=== PATIENT | female | born 1985 | race African-American/Black ===

== ENCOUNTER 2016-08-03 19:22 | Emergency (ER) | payer MEDICAID ==
--- NOTE | 2016-08-03 19:37 | ER Document Report ---
ED Medical Screen (RME) - General Chief Complaint: Headache >24 hrs old Stated Complaint: HEADACHE Notes: Patient complains of intermittent headache for 4 days. Patient denies fever, denies congestion, nausea or vomiting. Headache is located to left forehead. Pain level 4 out of 5. I have greeted and performed a rapid initial assessment of this patient. A comprehensive ED assessment and evaluation of the patient, analysis of test results and completion of the medical decision making process will be conducted by additional ED providers. TRAVEL OUTSIDE OF THE [place] IN LAST 30 DAYS: No - Related Data Allergies/Adverse Reactions: hydromorphone HCl [From Dilaudid] Allergy (Severe, Verified 05/26/13 07:31) Anaphylaxis Past Medical History - Social History Chew tobacco use (# tins/day): No Frequency of alcohol use: None Drug Abuse: None Endocrine Medical History: Reports: Hx Diabetes Mellitus Type 1 Renal/ Medical History: Denies: Hx Peritoneal Dialysis Past Surgical History: Reports: Hx Section - x2, Hx Tubal Ligation - Immunizations Immunizations up to date: No Hx Diphtheria, Pertussis, Tetanus Vaccination: No Physical Exam - Vital signs Vitals: Temp Pulse Resp BP Pulse Ox 98.6 F 106 H 16 124/73 100 08/03/16 19:32 08/03/16 19:32 08/03/16 19:32 08/03/16 19:32 08/03/16 19:32 Course - Vital Signs Vital signs: Temp Pulse Resp BP Pulse Ox 98.6 F 106 H 16 124/73 100 08/03/16 19:32 08/03/16 19:32 08/03/16 19:32 08/03/16 19:32 08/03/16 19:32
--- NOTE | 2016-08-03 22:34 | ER Document Report ---
ED Headache - General Time seen by provider: 22:35 Mode of Arrival: Ambulatory Information source: Patient TRAVEL OUTSIDE OF THE [place] IN LAST 30 DAYS: No - HPI Patient complains to provider of: Headache, Facial pain Onset: Other - see HPI note Timing: Better Quality of pain: Sharp, Throbbing Pain Level: 4 Context: denies: Head injury Preceding symptoms: Visual disturbance Associated symptoms: Double/blurred vision. denies: Fever, Nausea/vomiting Exacerbated by: Light - General Chief Complaint: Headache >24 hrs old Stated Complaint: HEADACHE Notes: Patient is a 31 year old female presenting to the emergency department for headache. Patient has had this headache for the past 4 days and it is waxing and waning every 2-3 hours. Patient's headache is located in the left side of her forehead. Patient states she gets headaches but they are usually relieved with Goody's powder. Patient states she has been using Goody's powder and has had no relief for her pain. Patient states her pain is a 4/5. Patient denies any trauma or injury to her head, dental pain, congestion, fever, nausea, or vomiting. Patient states that she is having some blurry vision on the left side because of the headache. Patient describes her pain as sharp, constant, and throbbing. Patient's headache is exacerbated with light. Patient states that she is a type I diabetic and takes lantis. Patient is allergic to hydromorphone HCl. (TESSA RO) - Related Data Allergies/Adverse Reactions: hydromorphone HCl [From Dilaudid] Allergy (Severe, Verified 05/26/13 07:31) Anaphylaxis Past Medical History - General Information source: Patient - Social History Smoking Status: Never Smoker Cigarette use (# per day): No Chew tobacco use (# tins/day): No Frequency of alcohol use: None Drug Abuse: None Family History: DM, Hypertension, Other - asthma Patient has suicidal ideation: No Patient has homicidal ideation: No Endocrine Medical History: Reports: Hx Diabetes Mellitus Type 1 Past Surgical History: Reports: Hx Section - x2, Hx Tubal Ligation - Immunizations Immunizations up to date: No Hx Diphtheria, Pertussis, Tetanus Vaccination: No Review of Systems - Review of Systems Constitutional: No symptoms reported. denies: Fever EENT: No symptoms reported. denies: Nose congestion Cardiovascular: No symptoms reported Respiratory: No symptoms reported Gastrointestinal: No symptoms reported. denies: Nausea, Vomiting Genitourinary: No symptoms reported Female Genitourinary: No symptoms reported Musculoskeletal: No symptoms reported Skin: No symptoms reported Hematologic/Lymphatic: No symptoms reported Neurological/Psychological: See HPI, Headaches -: Yes All other systems reviewed and negative Physical Exam - Vital signs Interpretation: Tachycardic - Vital signs Vitals: Temp Pulse Resp BP Pulse Ox 98.6 F 106 H 16 124/73 100 08/03/16 19:32 08/03/16 19:32 08/03/16 19:32 08/03/16 19:32 08/03/16 19:32 - Notes Notes: GENERAL: Well-appearing, well-nourished and in no acute distress. HEAD: Atraumatic, normocephalic. Tenderness with palpitation over the temporal and frontal head. No temporal artery tenderness. EYES: Pupils equal round and reactive to light, extraocular movements intact, sclera anicteric, no conjunctival injection or discharge. ENT: Nares patent, oropharynx clear without exudates. Moist mucous membranes. Normal TMs. NECK: Normal range of motion, supple, no carotid bruits. LUNGS: Breath sounds clear to auscultation bilaterally and equal. No wheezes rales or rhonchi. HEART: Normal S1S2. Regular rate and rhythm without murmurs. Equal peripheral pulses. ABDOMEN: Soft, non-tender. No appreciable mass. EXTREMITIES: Normal range of motion. No calf tenderness. Negative Homans. No edema. NEUROLOGICAL: GCS 15, Cranial nerves II-XII intact. Normal visual pitts. Normal speech without aphasia. No Pronator Drift. 5/5 RUE strength, 5/5 RLE strength, 5/5 LUE strength, 5/5 LLE strength. No cerebellar abnormalities including normal finger-nose testing. PSYCH: Normal mood, normal affect. SKIN: Warm, Dry, no cyanosis, Cap refill < 2 sec. (TESSA RO) Course - Re-evaluation Re-evalutation: 08/03/16 22:44 The patient presents with headache without signs of [employer] bleed, stroke, infection , or other serious etiology. The patient is neurologically intact. This is consistent with prior headaches she has had, usually though it gets better with BC powders. I have instructed her to limit BC powders. Given the extremely low risk of these diagnoses further testing and evaluation for these possibilities does not appear to be indicated at this time, as agreed as well with the patient. The patient has been instructed to return if the symptoms worsen or change in any way (TYLER VILLANUEVA) - Vital Signs Vital signs: Temp Pulse Resp BP Pulse Ox 98.6 F 106 H 16 124/73 100 08/03/16 19:32 08/03/16 19:32 08/03/16 19:32 08/03/16 19:32 08/03/16 19:32 Discharge - Discharge Clinical Impression: Headache Qualifiers: Headache type: unspecified Condition: Good Disposition: HOME, SELF-CARE Instructions: Headache ([facility]) Prescriptions: Promethazine HCl [Phenergan 25 mg Tablet] 25 mg PO Q4HP PRN #12 tablet PRN Reason: For Nausea/Vomiting Butalb/Acetaminophen/Caffeine [Fioricet (50-325-40 mg) Tablet] 1 - 2 tab PO Q4H #20 tab Referrals: [facility] [Provider Group] - Follow up in 3-5 days Scribe Documentation - Scribe Written by Jorje:: Tessa Ro 22:50 acting as scribe for :: Anastasia
[2016-08-03] MEDS ORDERED: ONDANSETRON 4 MG TAB.RAPDIS PO ONE (22:41)
[2016-08-03] MEDS ORDERED: HYDROCODONE/ACETAMINOPHEN 5-325 MG TABLET PO ONE (22:41)
[2016-08-03 23:22] VITALS: BP 125/80
== END 2016-08-03 23:20 | disposition home or self-care (01) ==
LOC: ER 19:22
DX: R51 Headache (principal); E10.9 Type 1 diabetes mellitus without complications; Z79.4 Long term (current) use of insulin
CPT/HCPCS: 99283; S0119

== ENCOUNTER 2016-09-26 15:16 | Emergency (ER) | payer MEDICAID ==
[2016-09-26] MEDS ORDERED: HYDROCODONE/ACETAMINOPHEN 5-325 MG TABLET ONE (17:22)
--- NOTE | 2016-10-12 09:15 | ER Document Report ---
Course - Re-evaluation Re-evalutation: 10/12/16 09:14 late entry: posterior ankle splint to right foot applied per pct, splint with good alignment , pt NVI
== END 2016-09-26 19:40 | disposition home or self-care (01) ==
LOC: ER 15:16
PROC: 2W3SX1Z Immobilization of Right Foot using Splint (ICD-10-PCS; principal; 2016-09-26)
DX: S92.405A Nondisplaced unspecified fracture of left great toe, initial encounter for closed fracture (principal); Y04.0XXA Assault by unarmed brawl or fight, initial encounter
CPT/HCPCS: 99283

== ENCOUNTER 2017-07-31 07:44 | Emergency (ER) | payer MEDICAID ==
--- NOTE | 2017-07-31 08:15 | ER Document Report ---
ED Extremity Problem, Lower - General Chief Complaint: Toe Injury Stated Complaint: TOE PAIN Time Seen by Provider: 07/31/17 08:08 Notes: Patient is a 32-year-old female, past medical history type I diabetic, presents with swelling of her left big toe and greenish discharge from the toe with red streaking after she received a pedicure a few days ago. Her blood sugar has been in the 500s in the ER today, but she said that they were running in the 100 's this week. She took her insulin last night as she normally does. Not on any sliding scale insulin. She denies nausea, vomiting, abdominal pain, fevers, urinary symptoms, shortness of breath or cough. TRAVEL OUTSIDE OF THE [place] IN LAST 30 DAYS: No - Related Data Allergies/Adverse Reactions: hydromorphone HCl [From Dilaudid] Allergy (Severe, Verified 05/26/13 07:31) Anaphylaxis Past Medical History - General Information source: Patient - Social History Smoking Status: Never Smoker Chew tobacco use (# tins/day): No Frequency of alcohol use: None Family History: DM, Hypertension, Other - asthma Patient has suicidal ideation: No Patient has homicidal ideation: No Endocrine Medical History: Reports: Hx Diabetes Mellitus Type 1 Renal/ Medical History: Denies: Hx Peritoneal Dialysis Past Surgical History: Reports: Hx Section - x2, Hx Tubal Ligation - Immunizations Immunizations up to date: No Hx Diphtheria, Pertussis, Tetanus Vaccination: No Review of Systems - Review of Systems Notes: REVIEW OF SYSTEMS: CONSTITUTIONAL: -fevers, -chills EENT: -eye pain, -difficulty swallowing, -nasal congestion CARDIOVASCULAR: -chest pain, -syncope. RESPIRATORY: -cough, -SOB GASTROINTESTINAL: -abdominal pain, -nausea, -vomiting, -diarrhea GENITOURINARY: -dysuria, -hematuria MUSCULOSKELETAL: +left big toe redness and swelling, -back pain, -neck pain HEMATOLOGIC: -easy bruising or bleeding. LYMPHATIC: -swollen, enlarged glands. NEUROLOGICAL: -altered mental status or loss of consciousness, -headache, - neurologic symptoms PSYCHIATRIC: -anxiety, -depression. ALL OTHER SYSTEMS REVIEWED AND NEGATIVE. Physical Exam - Vital signs Vitals: Temp Pulse Resp BP Pulse Ox 98.5 F 103 H 16 125/74 100 07/31/17 07:49 07/31/17 07:49 07/31/17 07:49 07/31/17 07:49 07/31/17 07:49 - Notes Notes: PHYSICAL EXAMINATION: GENERAL: Well-appearing, well-nourished and in no acute distress. HEAD: Atraumatic, normocephalic. EYES: Pupils equal round and reactive to light, extraocular movements intact, sclera anicteric, conjunctiva are normal. ENT: nares patent, oropharynx clear without exudates. Moist mucous membranes. NECK: Normal range of motion, supple without lymphadenopathy LUNGS: Breath sounds clear to auscultation bilaterally and equal. No wheezes rales or rhonchi. HEART: Regular rate and rhythm without murmurs ABDOMEN: Soft, nontender, normoactive bowel sounds. No guarding, no rebound. No masses appreciated. EXTREMITIES: Swelling of left big toe with blister and yellow drainage from the nail. Fluctuant swelling next to nailbed. Erythema from first big toe to mid foot. Normal range of motion, no pitting or edema. No cyanosis. NEUROLOGICAL: Cranial nerves grossly intact. Normal speech, normal gait. Normal sensory and motor exams. PSYCH: Normal mood, normal affect. Course - Re-evaluation Re-evalutation: Patient appears well. She has a paronychia that was drained and now mild cellulitis of her left first toe to mid foot. This was demarcated with a skin marker. Patient is not in DKA, but she does have hyperglycemia. Due to her uncontrolled diabetes with an A1c over 14, offered patient admission for IV antibiotics and further treatment of her hyperglycemia. However, the patient says she would like to try a trial of oral antibiotics and will call her primary care physician in [place] for an appointment this week to discuss her diabetes management. Patient told to come back immediately to the emergency room if she begins to have any worsening redness, fevers, difficulty walking or signs of DKA. She understands. - Vital Signs Vital signs: Temp Pulse Resp BP Pulse Ox 98.5 F 103 H 16 125/74 100 07/31/17 07:49 07/31/17 07:49 07/31/17 07:49 07/31/17 07:49 07/31/17 07:49 - Laboratory Result Diagrams: 07/31/17 08:40 07/31/17 08:40 Laboratory results interpreted by me: 07/31/17 07/31/17 07/31/17 08:40 08:40 08:40 WBC 20.1 H Hgb 10.1 L Hct 33.2 L MCV 66 L MCH 20.1 L MCHC 30.6 L RDW 17.9 H Plt Count 452 H Seg Neuts % (Manual) 86 H Lymphocytes % (Manual) 10 L Abs Neuts (Manual) 17.3 H Sodium 132.6 L Chloride 95 L Creatinine 0.48 L Glucose 561 H* Hemoglobin A1c % > 14.0 H - Diagnostic Test Radiology reviewed: Image reviewed, Reports reviewed Radiology results interpreted by me: Left foot x-ray: NAD Procedures - Incision and Drainage Left Great toe Time completed: Type: Simple Blade size: 11 I&D procedure: Betadine prep applied Incision Method: Incision made by scalpel Amount/type of drainage: 5 mL purulent drainage Discharge - Discharge Clinical Impression: Paronychia, Cellulitis of toe of left foot, Hyperglycemia Uncontrolled diabetes mellitus Qualifiers: Diabetes mellitus type: type 1 Diabetes mellitus complication status: with skin complications Diabetes mellitus complication detail: with other skin complication Qualified Code(s): E10.628 - Type 1 diabetes mellitus with other skin complications Condition: Stable Disposition: HOME, SELF-CARE Additional Instructions: If you notice worsening redness outside of the skin markings, return immediately to the emergency room. Take the full course of antibiotics and use yogurt or probiotics to help with any diarrhea. You must follow-up with your primary care physician to discuss diabetes management due to elevated blood sugar and A1c today. You are not in DKA today. Return to the ER if you have any worsening symptoms or any other concerns. CELLULITIS: You have an infection of your skin and underlying soft tissues called cellulitis. This is due to bacteria, which can enter through any break in the skin, or even through an irritated hair follicle. Untreated, cellulitis will usually worsen. Antibiotics are required. Usually, warm packs or warm soaks, and elevation of the infected area are recommended. You should start getting better within 24 to 36 hours. Most infections respond quickly to the right medication. Follow-up care is important, however, to check for abscess (boil) formation, unsuspected foreign body, or resistant infection. If you develop fever, chills, or if the area of infection is becoming rapidly more swollen or painful, call the doctor at once. ANTIBIOTIC THERAPY: You have been given an antibiotic prescription. It's important that you take all the medication, unless instructed otherwise by your physician. Failure to complete the entire course can result in relapse of your condition. Common side effects of antibiotics include nausea, intestinal cramping, or diarrhea. Women may develop vaginal yeast infections, and babies can get yeast (thrush) in the mouth following the use of antibiotics. Contact your physician if you develop significant side effects from this medication. Allergy to this antibiotic can result in hives, wheezing, faintness, or itching. If symptoms of allergy occur, stop the medication and call the doctor. CLINDAMYCIN: You have been given a prescription for the antibiotic clindamycin. It is often prescribed for infections in the mouth, such as dental infections or abscesses, and for skin infections due to MRSA. It's important that you take all the medication, unless instructed otherwise by your physician. Failure to complete the entire course can result in relapse of your condition. Common side effects of antibiotics include nausea, intestinal cramping, or diarrhea. Women may develop vaginal yeast infections, and babies can get yeast (thrush) in the mouth following the use of antibiotics. Contact your physician if you develop significant side effects from this medication. Allergy to this antibiotic can result in hives, wheezing, faintness, or itching. If symptoms of allergy occur, stop the medication and call the doctor. FOLLOW-UP CARE: If you have been referred to a physician for follow-up care, call the physician s office for an appointment as you were instructed or within the next two days. If you experience worsening or a significant change in your symptoms, notify the physician immediately or return to the Emergency Department at any time for re-evaluation. HYPERGLYCEMIA (HIGH BLOOD SUGAR): You have an abnormally high blood sugar. Not all high blood sugar requires long-term treatment. High blood sugar can be due to medications, , or the stress of illness. (These cases are "borderline diabetes.") If the doctor feels your high blood sugar might resolve with time, you may not require treatment now. It's very important that you follow through, to see if the blood sugar returns to normal levels. Uncontrolled high blood sugar leads to early heart disease, strokes, nerve damage, eye damage, and kidney damage. Call the physician if there is faintness, excess sleepiness, or very rapid breathing. DIABETES: You have an abnormally high blood sugar, suspicious for diabetes. Not all high blood sugar requires long-term treatment. High blood sugar can be due to medications, , or the stress of illness. (These cases are "borderline diabetes.") If the doctor feels your high blood sugar might get better with time, you may not require treatment now. It's very important that you follow through. Uncontrolled high blood sugar leads to early heart disease, strokes, nerve damage, eye damage, and kidney damage. All diabetics should follow a diet designed to control the blood sugar. Overweight diabetics should exercise regularly and lose weight. If this is not sufficient to control the blood sugar, pills or insulin shots are necessary. Younger people who develop diabetes almost always require insulin daily. Home testing of blood sugars or urine sugar is required. Diabetic teaching is available to help you figure insulin doses and monitor the blood sugar. Call the physician if there is faintness, excess sleepiness, or very rapid breathing. If hypoglycemia (LOW blood sugar) develops, symptoms are shakiness, weakness, sweating, and confusion. In this case, you should eat or drink something with sugar at once. INSULIN: Insulin is a natural hormone that lowers blood sugar. Normal blood sugar prevents complications of diabetes. For most diabetics, insulin is the best way to treat the illness. Be sure you know how to measure the insulin correctly. Insulin is measured in "units." There are three types of insulin: N (NPH or long acting), R (regular or short acting), and L (Lente or very long acting). Be sure you are using the right amount of each type. Insulin must be injected into the fat. You can use the abdomen, upper arms , and thighs. Select a different injection site every time. Wipe the site with alcohol before injecting. When first starting insulin, some adjusting of the insulin dose is necessary. Keep a record of each insulin dose and time of injection, and of the blood sugar and the time you test it. Sometimes insulin can make the blood sugar too low. If you become dizzy, sweaty, shaky, or confused, you may be having a hypoglycemic episode. Immediately use juice or some other sweet food. Call the doctor if the symptoms don't go away. FOLLOW-UP CARE: If you have been referred to a physician for follow-up care, call the physician s office for an appointment as you were instructed or within the next two days. If you experience worsening or a significant change in your symptoms, notify the physician immediately or return to the Emergency Department at any time for re-evaluation. Paronychia You have an infection between the nail and the surrounding skin, called a paronychia. The germs infect the area after a minor skin injury, such as a hangnail. This infection is treated by releasing the pus. This is usually done by the skin from the nail. If the infection has spread underneath the nail, partial removal of the nail may be necessary. Hot-soak the area three or four times daily. Antibiotics are often given, but are not always necessary. Healing takes about a week. If pain or swelling becomes severe or if you develop fever or chills, call the doctor or return for re-examination. Prescriptions: Clindamycin HCl 300 mg PO Q8H 7 Days capsule Referrals: SHANNON TEJEDA MD [Primary Care Provider] - Follow up as needed
[2017-07-31] MEDS ORDERED: CLINDAMYCIN 600 MG/D5W RTU 600 MG/50 ML RTUPB IV ONE (08:23)
[2017-07-31] MEDS ORDERED: NORMAL SALINE 1000 ML 1,000 ML IV PRN (08:23)
[2017-07-31 09:05] LABS: HEMATOCRIT 33.2 % (36.0-47.0); HEMOGLOBIN 10.1 g/dL (12.0-15.5); MEAN CORPUSCULAR HEMOGLOBIN 20.1 pg (27.0-33.4); MEAN CORPUSCULAR HGB CONC 30.6 g/dL (32.0-36.0); MEAN CORPUSCULAR VOLUME 66 fl (80-97); PLATELET COUNT 452 10^3/uL (150-450); RED BLOOD COUNT 5.03 10^6/uL (3.72-5.28); RED CELL DISTRIBUTION WIDTH 17.9 % (11.5-14.0); WHITE BLOOD COUNT 20.1 10^3/uL (4.0-10.5)
--- NOTE | 2017-07-31 09:06 | RADIOLOGY REPORT (SQ) ---
EXAM DESCRIPTION: TOE LEFT COMPLETED DATE/TIME: 07/31/2017 8:51 am REASON FOR STUDY: left first toe swelling COMPARISON: None. NUMBER OF VIEWS: Three views. TECHNIQUE: AP, lateral, and oblique images acquired of the left GREAT TOE LIMITATIONS: None. FINDINGS: MINERALIZATION: Normal. BONES: No acute fracture or dislocation. No worrisome bone lesions. JOINTS: No effusions. SOFT TISSUES: No soft tissue swelling. No foreign body. OTHER: No other significant finding. IMPRESSION: NEGATIVE STUDY OF THE LEFT TOE. NO RADIOGRAPHIC EVIDENCE OF ACUTE INJURY. COMMENT: SITE OF TRAUMA/COMPLAINT MARKED/STAMP COMPLETED: NO TECHNICAL DOCUMENTATION: JOB ID: [id number] [employer]- All Rights Reserved Reading location - IP/workstation name: [email or web address]
[2017-07-31 09:16] LABS: ANION GAP 16 (5-19); BLOOD UREA NITROGEN 10 mg/dL (7-20); CALCIUM 9.8 mg/dL (8.4-10.2); CARBON DIOXIDE 22 mmol/L (22-30); CHLORIDE 95 mmol/L (98-107); POTASSIUM 4.4 mmol/L (3.6-5.0); SODIUM 132.6 mmol/L (137-145)
[2017-07-31 09:25] LABS: GLUCOSE 561 mg/dL (75-110)
[2017-07-31 09:45] LABS: ABSOLUTE MONOCYTES # (MANUAL) 0.6 10^3/uL (0.1-1.4); ABSOLUTE NEUTROPHILS# (MANUAL) 17.3 10^3/uL (1.7-8.2); ANISOCYTOSIS 2+; BASOPHILS % (MANUAL) 1 % (0-2); EOSINOPHILS % (MANUAL) 0 % (0-6); LYMPHOCYTES % (MANUAL) 10 % (13-45); MONOCYTES % (MANUAL) 3 % (3-13); PLATELET COMMENT ADEQUATE; POLYCHROMASIA SLIGHT; SEGMENTED NEUTROPHILS % (MAN) 86 % (42-78); TOTAL CELLS COUNTED 100; TOXIC GRANULATION SLIGHT; TOXIC VACUOLATION PRESENT
[2017-07-31 09:46] LABS: HYPOCHROMASIA SLIGHT
[2017-07-31 10:55] VITALS: BP 109/55
== END 2017-07-31 11:06 | disposition home or self-care (01) ==
LOC: ER 07:44
DX: L03.032 Cellulitis of left toe (principal); L03.116 Cellulitis of left lower limb; E10.65 Type 1 diabetes mellitus with hyperglycemia; Z88.5 Allergy status to narcotic agent
CPT/HCPCS: 99284; 96365; 36415; 87040; 82962; 83605; 85025; 80048; 83036; 73660; 10060; S0077; J7030

== ENCOUNTER 2017-08-01 20:23 | Inpatient (IN) | payer MEDICAID ==
[2017-08-01] MEDS ORDERED: VANCOMYCIN HCL INJ 1000 MG VIAL IV ONE (21:21)
[2017-08-01] MEDS ORDERED: PIPERACILLIN/TAZOBACTAM 3.375 GM VIAL IV ONE (21:21)
--- NOTE | 2017-08-01 21:22 | ER Document Report ---
ED Medical Screen (RME) - General Chief Complaint: Wound Infection Stated Complaint: FOOT PAIN Time Seen by Provider: 08/01/17 21:20 Mode of Arrival: Ambulatory Information source: Patient Notes: 32-year-old female who was seen here yesterday given IV antibiotics and oral antibiotics for a toe infection presents with worsening symptoms I have greeted and performed a rapid initial assessment of this patient. A comprehensive ED assessment and evaluation of the patient, analysis of test results and completion of the medical decision making process will be conducted by additional ED providers. PHYSICAL EXAMINATION: GENERAL: Well-appearing, well-nourished and in no acute distress. HEAD: Atraumatic, normocephalic. EYES: Pupils equal round extraocular movements intact, conjunctiva are normal. ENT: Nares patent NECK: Normal range of motion LUNGS: No respiratory distress Musculoskeletal: Normal range of motion NEUROLOGICAL: Normal speech, normal gait. PSYCH: Normal mood, normal affect. SKIN: Large toe erythematous pustular with drainage streaking to the mid mcintyre TRAVEL OUTSIDE OF THE [place] IN LAST 30 DAYS: No - Related Data Allergies/Adverse Reactions: hydromorphone HCl [From Dilaudid] Allergy (Severe, Verified 08/01/17 20:26) Anaphylaxis Past Medical History Endocrine Medical History: Reports: Hx Diabetes Mellitus Type 1 Renal/ Medical History: Denies: Hx Peritoneal Dialysis Past Surgical History: Reports: Hx Section - x2, Hx Tubal Ligation - Immunizations Immunizations up to date: No Hx Diphtheria, Pertussis, Tetanus Vaccination: No
[2017-08-01 22:24] LABS: ABSOLUTE BASOPHILS # (AUTO) 0.1 10^3/uL (0.0-0.2); ABSOLUTE EOSINOPHILS # (AUTO) 0.5 10^3/uL (0.0-0.6); ABSOLUTE LYMPHOCYTES (AUTO) 2.5 10^3/uL (0.5-4.7); ABSOLUTE MONOCYTES (AUTO) 0.6 10^3/uL (0.1-1.4); ABSOLUTE NEUT (AUTO) 6.4 10^3/uL (1.7-8.2); BASOPHILS % (AUTO) 0.7 % (0-2); EOSINOPHILS % (AUTO) 5.3 % (0-6); HEMATOCRIT 31.9 % (36.0-47.0); HEMOGLOBIN 9.9 g/dL (12.0-15.5); LYMPHOCYTES % (AUTO) 24.8 % (13-45); MEAN CORPUSCULAR HEMOGLOBIN 20.2 pg (27.0-33.4); MEAN CORPUSCULAR VOLUME 65 fl (80-97); MONOCYTES % (AUTO) 6.2 % (3-13); PLATELET COUNT 527 10^3/uL (150-450); RED BLOOD COUNT 4.92 10^6/uL (3.72-5.28); TOTAL CELLS COUNTED % (AUTO) 100 %; WHITE BLOOD COUNT 10.2 10^3/uL (4.0-10.5)
[2017-08-01 22:43] LABS: ALANINE AMINOTRANSFERASE 20 U/L (9-52); ALBUMIN 4.3 g/dL (3.5-5.0); ALKALINE PHOSPHATASE 110 U/L (38-126); ANION GAP 12 (5-19); ASPARTATE AMINO TRANSFERASE 26 U/L (14-36); BILIRUBIN,DIRECT 0.3 mg/dL (0.0-0.4); BILIRUBIN,TOTAL 0.3 mg/dL (0.2-1.3); BLOOD UREA NITROGEN 6 mg/dL (7-20); CALCIUM 9.7 mg/dL (8.4-10.2); CARBON DIOXIDE 27 mmol/L (22-30); CHLORIDE 98 mmol/L (98-107); GLUCOSE 387 mg/dL (75-110); POTASSIUM 4.1 mmol/L (3.6-5.0); SODIUM 136.8 mmol/L (137-145); TOTAL PROTEIN 8.7 g/dL (6.3-8.2)
[2017-08-01 22:56] LABS: INTERNATIONAL RATION (INR) 0.86; PROTHROMBIN TIME 12.4 SEC (11.4-15.4)
[2017-08-01] MEDS ORDERED: MORPHINE SULFATE 10 MG/ML INJ IV ONE (23:00)
[2017-08-01] MEDS ORDERED: ONDANSETRON HCL INJ/PF 4 MG/2 ML SDV IV ONE (23:00)
--- NOTE | 2017-08-01 23:03 | ER Document Report ---
ED Extremity Problem, Lower - General Chief Complaint: Wound Infection Stated Complaint: FOOT PAIN Time Seen by Provider: 08/01/17 21:20 Mode of Arrival: Ambulatory Notes: Patient is a 32-year-old female, type I diabetic, who comes emergency department for chief complaint of worsening symptoms of infection on the left foot, she was seen yesterday, diagnosed with a paronychia which was drained, she was placed on clindamycin, she had declined admission to the hospital at that time. She states however today it has dramatically worsened, now she has swelling of her toe, foot, and ankle along with increased pain and redness. She denies fever or chills, nausea or vomiting. Her blood sugars have been elevated since this began. TRAVEL OUTSIDE OF THE [place] IN LAST 30 DAYS: No - Related Data Allergies/Adverse Reactions: hydromorphone HCl [From Dilaudid] Allergy (Severe, Verified 08/01/17 20:26) Anaphylaxis Past Medical History - General Information source: Patient - Social History Smoking Status: Never Smoker Chew tobacco use (# tins/day): No Frequency of alcohol use: Rare Drug Abuse: None Family History: DM, Hypertension, Other - asthma Patient has suicidal ideation: No Patient has homicidal ideation: No Endocrine Medical History: Reports: Hx Diabetes Mellitus Type 1 Renal/ Medical History: Denies: Hx Peritoneal Dialysis Past Surgical History: Reports: Hx Section - x2, Hx Tubal Ligation - Immunizations Immunizations up to date: No Hx Diphtheria, Pertussis, Tetanus Vaccination: No Review of Systems - Review of Systems Constitutional: No symptoms reported EENT: No symptoms reported Cardiovascular: No symptoms reported Respiratory: No symptoms reported Gastrointestinal: No symptoms reported Genitourinary: No symptoms reported Female Genitourinary: No symptoms reported Musculoskeletal: See HPI Skin: See HPI Hematologic/Lymphatic: No symptoms reported Neurological/Psychological: No symptoms reported Physical Exam - Vital signs Vitals: Resp Pulse Ox 13 100 08/01/17 23:10 08/01/17 23:10 - General General appearance: Other - Patient holding her left foot over the side of the bed and appears to be in some pain, otherwise she does not appear to be in any distress - HEENT Head: Normocephalic, Atraumatic Eyes: Normal Conjunctiva: Normal Extraocular movements intact: Yes Eyelashes: Normal Pupils: PERRL Nasal: Normal Mouth/Lips: Normal Mucous membranes: Normal Pharynx: Normal Neck: Normal - Respiratory Respiratory status: No respiratory distress. No: Labored Breath sounds: Normal. No: Decreased air movement - Cardiovascular Rhythm: Regular. No: Tachycardia Heart sounds: Normal auscultation, S1 appreciated, S2 appreciated - Abdominal Inspection: Normal Tenderness: Nontender. No: Tender, Guarding - Back Back: Normal, Nontender. No: Tender - Extremities General upper extremity: Normal inspection, Nontender, Normal strength, Normal temperature General lower extremity: Other - There is an opening at the base of the nail of the left great toe, I did express some purulent discharge from this, there is swelling of the toe, dorsum of the foot, ankle, and slightly of the leg with erythema, heat, tenderness. Capillary refill intact, sensation intact, lower extremity exam is unremarkable otherwise - Neurological Neuro grossly intact: Yes Cognition: Normal Orientation: AAOx4 Eighty Eight Coma Scale Eye Opening: Spontaneous Maria Antonia Coma Scale Verbal: Oriented Maria Antonia Coma Scale Motor: Obeys Commands Maria Antonia Coma Scale Total: 15 Speech: Normal Motor strength normal: LUE, RUE, LLE, RLE Sensory: Normal Course - Re-evaluation Re-evalutation: Patient does have swelling of the left great toe, dorsum of the foot, over the ankle, and up the leg somewhat. There is erythema, abnormal heat, and tenderness. Patient states it was isolated only to the toe initially. Fortunately she is afebrile, does not have leukocytosis or bandemia. Concern because of her type 1 diabetes, she is already on clindamycin, and she is significantly worsening. Patient given Zosyn and vancomycin. I did examine the foot and express a moderate amount of purulent drainage out of the opening that is still there from yesterday (at the base of the nail of the great toe on the left foot), however no additional induration, fluctuance, or abnormalities noted at this time. Because of failure with outpatient management, diabetic wrist, and concerning examination discussed with patient for hospital admission, she states agreement. Discussed with Dr. Marino, internal medicine, patient will be admitted to the medical floor. - Vital Signs Vital signs: Temp Pulse Resp BP Pulse Ox 98.2 F 99 16 130/85 H 99 08/02/17 02:32 08/02/17 02:32 08/02/17 02:32 08/02/17 02:32 08/02/17 02:32 - Laboratory Result Diagrams: 08/01/17 21:50 08/01/17 21:50 Laboratory results interpreted by me: 08/01/17 08/01/17 08/01/17 21:50 21:50 21:50 Hgb 9.9 L Hct 31.9 L MCV 65 L MCH 20.2 L MCHC 31.0 L RDW 18.0 H Plt Count 527 H ESR 75 H Sodium 136.8 L BUN 6 L Creatinine 0.35 L Glucose 387 H C-Reactive Protein Total Protein 8.7 H 08/01/17 21:50 Hgb Hct MCV MCH MCHC RDW Plt Count ESR Sodium BUN Creatinine Glucose C-Reactive Protein 85.0 H Total Protein Discharge - Discharge Clinical Impression: Cellulitis of toe of left foot, Cellulitis of left foot, Cellulitis of left leg Condition: Stable Disposition: ADMITTED INPATIENT Admitting Provider: Hospitalist Unit Admitted: Medical Floor
[2017-08-02] MEDS ORDERED: VANCOMYCIN HCL 0 MG in DEXTROSE 5%-WATER 250 ML IV NR (00:45)
[2017-08-02] MEDS ORDERED: GLUCAGON,HUMAN RECOMB 1 MG INJ IM PRN (00:48)
[2017-08-02] MEDS ORDERED: DEXTROSE 40% GEL 15 GM TUBE PO PRN ×2 (00:48)
[2017-08-02] MEDS ORDERED: DEXTROSE 50%-WATER 25 GM/50 ML DISP.SYRIN IV PRN ×2 (00:48)
[2017-08-02] MEDS ORDERED: PIPERACILLIN/TAZOBACTAM 3.375 GM VIAL IV PRN (01:50)
[2017-08-02] MEDS ORDERED: INSULIN LISPRO 100 UNIT/ML 3 ML VIAL SUBCUT ONE (03:00)
[2017-08-02] MEDS ORDERED: HYDROCODONE/ACETAMINOPHEN 5-325 MG TABLET ONE (03:11)
[2017-08-02] MEDS ORDERED: HYDROCODONE/ACETAMINOPHEN 5-325 MG TABLET PO PRN (04:28)
[2017-08-02] MEDS ORDERED: PIPERACILLIN/TAZOBACTAM 3.375 GM VIAL IV ONE (05:14)
[2017-08-02] MEDS ORDERED: PIPERACILLIN SODIUM/TAZOBACTAM 3.375 GM in NORMAL SALINE 100 ML IV SCH (06:00)
[2017-08-02 06:10] LABS: ABSOLUTE BASOPHILS # (AUTO) 0.1 10^3/uL (0.0-0.2); ABSOLUTE EOSINOPHILS # (AUTO) 0.7 10^3/uL (0.0-0.6); ABSOLUTE LYMPHOCYTES (AUTO) 2.9 10^3/uL (0.5-4.7); ABSOLUTE MONOCYTES (AUTO) 0.9 10^3/uL (0.1-1.4); ABSOLUTE NEUT (AUTO) 5.6 10^3/uL (1.7-8.2); BASOPHILS % (AUTO) 0.9 % (0-2); EOSINOPHILS % (AUTO) 7.3 % (0-6); HEMATOCRIT 28.8 % (36.0-47.0); HEMOGLOBIN 8.9 g/dL (12.0-15.5); MEAN CORPUSCULAR HGB CONC 30.9 g/dL (32.0-36.0); MEAN CORPUSCULAR VOLUME 65 fl (80-97); PLATELET COUNT 453 10^3/uL (150-450); RED BLOOD COUNT 4.44 10^6/uL (3.72-5.28); RED CELL DISTRIBUTION WIDTH 17.8 % (11.5-14.0); SEGMENTED NEUTROPHILS % (AUTO) 54.8 % (42-78); TOTAL CELLS COUNTED % (AUTO) 100 %; WHITE BLOOD COUNT 10.2 10^3/uL (4.0-10.5)
--- NOTE | 2017-08-02 06:22 | PDOC H&P ---
History of Present Illness Admission Date/PCP: 08/02/17 00:19 Patient complains of: Worsening left foot cellulitis since yesterday. History of Present Illness: ISSA BANEGAS is a 32 year old female with history of type 1 diabetes mellitus was admitted with above-mentioned complaint. The patient was seen in the ED on 07/31/2017 and was diagnosed with paronychia of her left big toe after pedicure about a week ago. She said that she started noticing increased swelling of her left big toe with some leakage from the nailbed few days later. She was offered admission to receive IV antibiotics and have her blood sugar better controlled but the patient wanted to try oral medications instead. She was discharged on Clinda. According to the patient, she received IV antibiotics while in the ED but I cannot find what she has been given. 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 And later in the evening, she noticed that her left foot was more swollen and painful and that the erythema started spreading beyond her ankle but she denied any fever or chills. She also had a blister on her left big toe. In the ED, she was hemodynamically stable. Her WBC was 10.2 and her blood sugar was 387 with anion gap of 12. Lactic acid was 1.1. An x-ray of her left foot was done on 07/31/2017 which was negative for any acute findings. She received 1 g of vancomycin x1 and 3.375 mg IV Zosyn 1. Past Medical History Endocrine Medical History: Reports: Diabetes Mellitus Type 1 Past Surgical History Past Surgical History: Reports: Section - x2, Tubal Ligation Social History Smoking Status: Never Smoker Frequency of Alcohol Use: Occasional - vodka. Hx Recreational Drug Use: No Hx Prescription Drug Abuse: No Family History Family History: DM, Hypertension, Other - asthma Parental Family History Reviewed: Yes - Father: diabetes Children Family History Reviewed: No Sibling(s) Family History Reviewed.: Yes Medication/Allergy Home Medications: Clindamycin HCl 300 mg PO Q8H 7 Days capsule 07/31/17 Insulin Glargine,Hum.rec.anlog [Lantus Insulin 100 Unit/mL] 50 units SUBCUT QHS 07/31/17 Allergies/Adverse Reactions: hydromorphone HCl [From Dilaudid] Allergy (Severe, Verified 08/01/17 20:26) Anaphylaxis Review of Systems ROS unobtainable: Other - Pertinent positives and negatives as detailed in the HPI. Denied any fever, chills, chest pain, shortness of breath, abdominal pain , diarrhea or constipation or any urinary symptoms. She also denied any focal weakness or numbness. Physical Exam General appearance: PRESENT: no acute distress, well-developed, well-nourished Head exam: PRESENT: atraumatic, normocephalic Eye exam: PRESENT: conjunctiva pink, PERRLA Mouth exam: PRESENT: moist, neck supple Neck exam: PRESENT: full ROM. ABSENT: JVD Respiratory exam: PRESENT: clear to auscultation dillan. ABSENT: rales, rhonchi, wheezes Cardiovascular exam: PRESENT: RRR, +S1, +S2 Pulses: PRESENT: normal dorsalis pedis pul GI/Abdominal exam: PRESENT: normal bowel sounds, soft. ABSENT: distended, rebound, tenderness Rectal exam: PRESENT: deferred Extremities exam: PRESENT: pedal edema, other - Left foot swelling. Neurological exam: PRESENT: alert, altered, awake. ABSENT: motor sensory deficit - grossly. Skin exam: PRESENT: erythema - Left foot up to above ankle. Blister on the left big toe I&D'ed in the ED. tenderness, pain, no significant drainage at this time., warm. ABSENT: rash Results Laboratory Results: CBC: WBC 10.2, hemoglobin 9.9, hematocrit 31.9, MCV 65, RDW 18.0, platelets 527. PT/INR 12.4/0.86. CMP: Sodium 136.8, potassium 4.1, chloride 98, bicarb 27, anion gap 12, BUN 6, creatinine 0.35, glucose 387, lactic acid 1.1, liver enzymes within normal limits. Impressions: X-ray left foot on 07/31/2017, negative study for any acute injury. Assessment & Plan - Diagnosis (1) Cellulitis of left foot Is this a current diagnosis for this admission?: Yes Plan: X-ray left foot done on 07/31/2017 was negative for any acute findings. Will continue vancomycin and Zosyn for now. (2) Type 1 diabetes mellitus Qualifiers: Diabetes mellitus complication status: with unspecified complications Qualified Code(s): E10.8 - Type 1 diabetes mellitus with unspecified complications Is this a current diagnosis for this admission?: Yes Plan: Uncontrolled. The patient is on Lantus 50 units daily. Will add Humalog sliding scale. She is not compliant with her diabetic diet, she was eating Cheetos and drinking soda when I went to see her. - Time Time Spent: 30 to 50 Minutes Anticipated discharge: Home
[2017-08-02 06:39] LABS: ANISOCYTOSIS 1+; HYPOCHROMASIA 2+; POIKILOCYTOSIS SLIGHT; POLYCHROMASIA SLIGHT; TOXIC VACUOLATION PRESENT
[2017-08-02 06:40] LABS: OVALOCYTES 1+; PLATELET COMMENT ADEQUATE
[2017-08-02] MEDS: INSULIN LISPRO 100 UNIT/ML 3 ML VIAL SUBCUT PRN ×4 (09:22→21:37)
[2017-08-02] MEDS: VANCOMYCIN HCL 1,000 MG in DEXTROSE 5%-WATER 250 ML IV SCH ×2 (09:22→17:16)
[2017-08-02] MEDS: PIPERACILLIN SODIUM/TAZOBACTAM 3.375 GM in NORMAL SALINE 100 ML IV SCH ×3 (12:25→23:24)
--- NOTE | 2017-08-02 17:35 | PDOC PROGRESS REPORT ---
Subjective Progress Note for:: 08/02/17 Subjective:: ISSA BANEGAS is a 32 y.o. female admitted for left foot cellulitis. She initially presented to the emergency department on 07/31, she was to discharge her home with oral antibiotics. The following day she states her swelling of the left great toe was worse. She returned to the emergency department and has been admitted to [facility] for IV antibiotics. Patient was seen this morning on rounds, she complains of mild left foot pain. She states that she is able to ambulate without difficulty. Denies paresthesia to the left foot. Reason For Visit: LEG CELLULITIS Physical Exam Vital Signs: Temp Pulse Resp BP Pulse Ox 99.0 F 96 22 H 99/67 L 98 08/02/17 16:00 08/02/17 16:00 08/02/17 16:00 08/02/17 16:00 08/02/17 16:00 Intake & Output 08/01/17 08/02/17 08/03/17 06:59 06:59 06:59 Weight 60.9 kg General appearance: PRESENT: no acute distress Head exam: PRESENT: atraumatic Eye exam: PRESENT: conjunctiva pink Mouth exam: PRESENT: moist Neck exam: PRESENT: full ROM Respiratory exam: PRESENT: clear to auscultation dillan, symmetrical, unlabored Cardiovascular exam: PRESENT: +S1, +S2 Pulses: PRESENT: normal radial pulses, normal dorsalis pedis pul Rectal exam: PRESENT: deferred Extremities exam: PRESENT: full ROM, pedal edema - Left pedal edema, other - L toe redness. serous filled blister. Musculoskeletal exam: PRESENT: full ROM Neurological exam: PRESENT: alert, awake, oriented to person, oriented to place , oriented to time, oriented to situation Psychiatric exam: PRESENT: appropriate affect Skin exam: PRESENT: normal color Results Laboratory Results: 08/02/17 05:52 08/02/17 05:52 WBC 10.2 RBC 4.44 Hgb 8.9 L Hct 28.8 L MCV 65 L MCH 20.0 L MCHC 30.9 L RDW 17.8 H Plt Count 453 H Seg Neutrophils % 54.8 Lymphocytes % 28.0 Monocytes % 9.0 Eosinophils % 7.3 H Basophils % 0.9 Absolute Neutrophils 5.6 Absolute Lymphocytes 2.9 Absolute Monocytes 0.9 Absolute Eosinophils 0.7 H Absolute Basophils 0.1 Status: Imported from PACS Assessment & Plan - Diagnosis (1) Cellulitis of left foot Is this a current diagnosis for this admission?: Yes Plan: Erythema and edema to left great toe, edema has spread to left foot. Serous filled blister surrounding toenail of left great toe. X-ray left foot done was negative for any acute findings. Continue vancomycin and Zosyn. The patient remains afebrile, no leukocytosis. (2) Type 1 diabetes mellitus Qualifiers: Diabetes mellitus complication status: with unspecified complications Qualified Code(s): E10.8 - Type 1 diabetes mellitus with unspecified complications Is this a current diagnosis for this admission?: Yes Plan: Lantus 50 units daily. Humalog sliding scale. - Time Time Spent with patient: 15-24 minutes Medications reviewed and adjusted accordingly: Yes Anticipated discharge: Home Within: within 48 hours - Inpatient Certification Based on my medical assessment, after consideration of the patient's comorbidities, presenting symptoms, or acuity I expect that the services needed warrant INPATIENT care.: Yes I certify that my determination is in accordance with my understanding of Medicare's requirements for reasonable and necessary INPATIENT services [42 CFR 412.3e].: Yes Medical Necessity: Risk of Complication if Not Cared For in Hospital - Plan Summary Plan Summary: Plan is to keep the patient at [facility] for 24-48 hours, patient will require IV antibiotics
[2017-08-02] MEDS: INSULIN GLARGINE,HUM.REC.ANLOG 300 UNIT/3 ML INSULN.PEN SUBCUT SCH (21:36)
[2017-08-03] MEDS: VANCOMYCIN HCL 1,000 MG in DEXTROSE 5%-WATER 250 ML IV SCH ×3 (02:00→18:31)
[2017-08-03] MEDS: PIPERACILLIN SODIUM/TAZOBACTAM 3.375 GM in NORMAL SALINE 100 ML IV SCH ×2 (06:22→12:52)
[2017-08-03] MEDS: PROMETHAZINE HCL 25 MG TABLET PO PRN ×2 (06:28→23:27)
[2017-08-03] MEDS: INSULIN LISPRO 100 UNIT/ML 3 ML VIAL SUBCUT PRN ×3 (07:54→21:11)
[2017-08-03 08:35] LABS: ABSOLUTE BASOPHILS # (AUTO) 0.1 10^3/uL (0.0-0.2); ABSOLUTE EOSINOPHILS # (AUTO) 0.3 10^3/uL (0.0-0.6); ABSOLUTE LYMPHOCYTES (AUTO) 1.9 10^3/uL (0.5-4.7); ABSOLUTE MONOCYTES (AUTO) 1.1 10^3/uL (0.1-1.4); ABSOLUTE NEUT (AUTO) 9.2 10^3/uL (1.7-8.2); BASOPHILS % (AUTO) 0.6 % (0-2); EOSINOPHILS % (AUTO) 2.1 % (0-6); HEMOGLOBIN 9.1 g/dL (12.0-15.5); LYMPHOCYTES % (AUTO) 15.4 % (13-45); MEAN CORPUSCULAR HEMOGLOBIN 19.8 pg (27.0-33.4); MEAN CORPUSCULAR HGB CONC 30.3 g/dL (32.0-36.0); MEAN CORPUSCULAR VOLUME 65 fl (80-97); MONOCYTES % (AUTO) 8.8 % (3-13); PLATELET COUNT 499 10^3/uL (150-450); RED CELL DISTRIBUTION WIDTH 17.8 % (11.5-14.0); SEGMENTED NEUTROPHILS % (AUTO) 73.1 % (42-78); TOTAL CELLS COUNTED % (AUTO) 100 %; WHITE BLOOD COUNT 12.6 10^3/uL (4.0-10.5)
[2017-08-03 08:54] LABS: ANION GAP 10 (5-19); BLOOD UREA NITROGEN 6 mg/dL (7-20); CALCIUM 9.4 mg/dL (8.4-10.2); CARBON DIOXIDE 28 mmol/L (22-30); CHLORIDE 102 mmol/L (98-107); GLUCOSE 220 mg/dL (75-110); PHOSPHORUS 3.4 mg/dL (2.5-4.5); POTASSIUM 3.7 mmol/L (3.6-5.0)
[2017-08-03 10:30] LABS: VANCOMYCIN,TROUGH 12.7 ug/mL (5.0-20.0)
[2017-08-03] MEDS: IMIPENEM/CILASTATIN SODIUM 500 MG in NORMAL SALINE 100 ML IV SCH ×2 (17:29→23:26)
--- NOTE | 2017-08-03 18:43 | PDOC PROGRESS REPORT ---
Subjective Progress Note for:: 08/03/17 Subjective:: ISSA BANEGAS is a 32 y.o. female admitted for left foot cellulitis. She initially presented to the emergency department on 07/31, she was to discharge her home with oral antibiotics. The following day she states her swelling of the left great toe was worse. She returned to the emergency department and has been admitted to [facility] for IV antibiotics. Patient was seen this morning on rounds, she has no complaints at this time. She states that she is able to ambulate without difficulty. Denies paresthesia to the left foot. Reason For Visit: LEG CELLULITIS Physical Exam Vital Signs: Temp Pulse Resp BP Pulse Ox 99.2 F 99 16 98/59 L 99 08/03/17 11:10 08/03/17 11:10 08/03/17 11:10 08/03/17 11:10 08/03/17 11:10 Intake & Output 08/02/17 08/03/17 08/04/17 06:59 06:59 06:59 Intake Total 240 Balance 240 Weight 60.9 kg General appearance: PRESENT: no acute distress Head exam: PRESENT: atraumatic Eye exam: PRESENT: conjunctiva pink Mouth exam: PRESENT: moist Neck exam: PRESENT: full ROM Respiratory exam: PRESENT: clear to auscultation dillan, symmetrical, unlabored Cardiovascular exam: PRESENT: +S1, +S2 Pulses: PRESENT: normal radial pulses, normal dorsalis pedis pul Rectal exam: PRESENT: deferred Extremities exam: PRESENT: full ROM, +1 edema - L foot only, other - L great toe erythema. Serous filled flister on the dorsal portion of the L great toe Musculoskeletal exam: PRESENT: full ROM Neurological exam: PRESENT: alert, awake, oriented to person, oriented to place , oriented to time, oriented to situation Skin exam: PRESENT: normal color Results Laboratory Results: 08/03/17 08:19 08/03/17 09:47 08/03/17 08/03/17 08/03/17 08:19 08:19 09:47 WBC 12.6 H RBC 4.60 Hgb 9.1 L Hct 30.0 L MCV 65 L MCH 19.8 L MCHC 30.3 L RDW 17.8 H Plt Count 499 H Seg Neutrophils % 73.1 Lymphocytes % 15.4 Monocytes % 8.8 Eosinophils % 2.1 Basophils % 0.6 Absolute Neutrophils 9.2 H Absolute Lymphocytes 1.9 Absolute Monocytes 1.1 Absolute Eosinophils 0.3 Absolute Basophils 0.1 Sodium 140.0 Potassium 3.7 Chloride 102 Carbon Dioxide 28 Anion Gap 10 BUN 6 L Creatinine 0.63 0.65 Est GFR ( Amer) > 60 > 60 Est GFR (Non-Af Amer) > 60 > 60 Glucose 220 H Calcium 9.4 Phosphorus 3.4 Magnesium 1.6 Status: Imported from PACS Assessment & Plan - Diagnosis (1) Cellulitis of left foot Is this a current diagnosis for this admission?: Yes Plan: Erythema and edema to left great toe, edema has spread to left foot. Serous filled blister surrounding toenail of left great toe. X-ray left foot done was negative for any acute findings. Continue vancomycin, since osteomyelitis has been ruled out, will switch to Imipenem. The patient remains afebrile, no leukocytosis. (2) Type 1 diabetes mellitus Qualifiers: Diabetes mellitus complication status: with unspecified complications Qualified Code(s): E10.8 - Type 1 diabetes mellitus with unspecified complications Is this a current diagnosis for this admission?: Yes Plan: Lantus 50 units daily. Humalog sliding scale. - Time Time Spent with patient: 15-24 minutes Anticipated discharge: Home - Inpatient Certification Based on my medical assessment, after consideration of the patient's comorbidities, presenting symptoms, or acuity I expect that the services needed warrant INPATIENT care.: Yes I certify that my determination is in accordance with my understanding of Medicare's requirements for reasonable and necessary INPATIENT services [42 CFR 412.3e].: Yes Medical Necessity: Need for IV Antibiotics - Plan Summary Plan Summary: Ultimately, the plan is to discharge the patient home
[2017-08-03] MEDS: INSULIN GLARGINE,HUM.REC.ANLOG 300 UNIT/3 ML INSULN.PEN SUBCUT SCH (21:11)
[2017-08-04] MEDS: VANCOMYCIN HCL 1,000 MG in DEXTROSE 5%-WATER 250 ML IV SCH ×3 (01:16→17:13)
[2017-08-04] MEDS: IMIPENEM/CILASTATIN SODIUM 500 MG in NORMAL SALINE 100 ML IV SCH ×3 (05:37→17:11)
[2017-08-04 08:16] LABS: ABSOLUTE BASOPHILS # (AUTO) 0.1 10^3/uL (0.0-0.2); ABSOLUTE EOSINOPHILS # (AUTO) 0.2 10^3/uL (0.0-0.6); ABSOLUTE LYMPHOCYTES (AUTO) 2.8 10^3/uL (0.5-4.7); ABSOLUTE NEUT (AUTO) 7.2 10^3/uL (1.7-8.2); EOSINOPHILS % (AUTO) 1.6 % (0-6); HEMATOCRIT 30.3 % (36.0-47.0); HEMOGLOBIN 9.2 g/dL (12.0-15.5); LYMPHOCYTES % (AUTO) 24.8 % (13-45); MEAN CORPUSCULAR HEMOGLOBIN 19.7 pg (27.0-33.4); MEAN CORPUSCULAR HGB CONC 30.4 g/dL (32.0-36.0); MEAN CORPUSCULAR VOLUME 65 fl (80-97); PLATELET COUNT 514 10^3/uL (150-450); RED CELL DISTRIBUTION WIDTH 17.5 % (11.5-14.0); SEGMENTED NEUTROPHILS % (AUTO) 63.6 % (42-78); TOTAL CELLS COUNTED % (AUTO) 100 %; WHITE BLOOD COUNT 11.3 10^3/uL (4.0-10.5)
[2017-08-04 08:34] LABS: ANION GAP 7 (5-19); BLOOD UREA NITROGEN 5 mg/dL (7-20); CALCIUM 9.4 mg/dL (8.4-10.2); CARBON DIOXIDE 28 mmol/L (22-30); CHLORIDE 107 mmol/L (98-107); GLUCOSE 105 mg/dL (75-110); PHOSPHORUS 4.2 mg/dL (2.5-4.5); POTASSIUM 3.7 mmol/L (3.6-5.0); SODIUM 142.4 mmol/L (137-145)
[2017-08-04 08:48] LABS: ANISOCYTOSIS 1+; BURR CELLS SLIGHT; POIKILOCYTOSIS SLIGHT; POLYCHROMASIA 1+; TOXIC GRANULATION SLIGHT; TOXIC VACUOLATION PRESENT
[2017-08-04 08:49] LABS: OVALOCYTES 2+; PLATELET COMMENT INCREASED
[2017-08-04] MEDS: INSULIN LISPRO 100 UNIT/ML 3 ML VIAL SUBCUT PRN ×2 (11:11→22:59)
--- NOTE | 2017-08-04 15:45 | PDOC PROGRESS REPORT ---
Subjective Progress Note for:: 08/04/17 Subjective:: ISSA BANEGAS is a 32 y.o. female admitted for left foot cellulitis. She initially presented to the emergency department on 07/31, she was to discharge her home with oral antibiotics. The following day she states her swelling of the left great toe was worse. She returned to the emergency department and has been admitted to [facility] for IV antibiotics. Patient was seen this morning on rounds, she has no complaints at this time. It appear that the serous filled blister is beginning to grow pus. Surgery has been consulted for possible I&D. Reason For Visit: LEFT FOOT CELLULITIS Physical Exam Vital Signs: Temp Pulse Resp BP Pulse Ox 98.1 F 91 16 129/72 H 100 08/04/17 12:00 08/04/17 12:00 08/04/17 12:00 08/04/17 12:00 08/04/17 12:00 Intake & Output 08/03/17 08/04/17 08/05/17 06:59 06:59 06:59 Intake Total 240 540 Balance 240 540 General appearance: PRESENT: no acute distress Head exam: PRESENT: atraumatic Eye exam: PRESENT: conjunctiva pink Mouth exam: PRESENT: moist Neck exam: PRESENT: full ROM Respiratory exam: PRESENT: symmetrical, unlabored Cardiovascular exam: PRESENT: +S1, +S2 Pulses: PRESENT: normal radial pulses, normal dorsalis pedis pul Vascular exam: PRESENT: normal capillary refill GI/Abdominal exam: PRESENT: soft Rectal exam: PRESENT: deferred Extremities exam: PRESENT: full ROM, other - circumfrental erythema to L great tow. surrounding edema to L foot. serous filled blister on the dorsal aspect of the L great toe, thee appears to be small amounts of pus forming under the blister Musculoskeletal exam: PRESENT: ambulatory Neurological exam: PRESENT: alert, awake, oriented to person, oriented to place , oriented to time, oriented to situation Psychiatric exam: PRESENT: appropriate affect Results Laboratory Results: 08/04/17 08:01 08/04/17 08:01 08/04/17 08/04/17 08:01 08:01 WBC 11.3 H RBC 4.70 Hgb 9.2 L Hct 30.3 L MCV 65 L MCH 19.7 L MCHC 30.4 L RDW 17.5 H Plt Count 514 H Seg Neutrophils % 63.6 Lymphocytes % 24.8 Monocytes % 9.0 Eosinophils % 1.6 Basophils % 1.0 Absolute Neutrophils 7.2 Absolute Lymphocytes 2.8 Absolute Monocytes 1.0 Absolute Eosinophils 0.2 Absolute Basophils 0.1 Sodium 142.4 Potassium 3.7 Chloride 107 Carbon Dioxide 28 Anion Gap 7 BUN 5 L Creatinine 0.87 Est GFR ( Amer) > 60 Est GFR (Non-Af Amer) > 60 Glucose 105 Calcium 9.4 Phosphorus 4.2 Magnesium 1.8 Status: Imported from PACS Assessment & Plan - Diagnosis (1) Cellulitis of left foot Is this a current diagnosis for this admission?: Yes Plan: Erythema and edema to left great toe, edema has spread to left foot. Serous filled blister surrounding toenail of left great toe, small amounts of pus beginning to form under the blister. X-ray left foot done 07/31 was negative for any acute findings. Continue vancomycin, since osteomyelitis has been ruled out, will switch to Imipenem. The patient remains afebrile, no leukocytosis. Surgery consulted regarding possible I&D of blister (2) Type 1 diabetes mellitus Qualifiers: Diabetes mellitus complication status: with unspecified complications Qualified Code(s): E10.8 - Type 1 diabetes mellitus with unspecified complications Is this a current diagnosis for this admission?: Yes Plan: Lantus 50 units daily. Humalog sliding scale. - Time Time Spent with patient: 15-24 minutes Medications reviewed and adjusted accordingly: Yes Anticipated discharge: Home - Inpatient Certification Based on my medical assessment, after consideration of the patient's comorbidities, presenting symptoms, or acuity I expect that the services needed warrant INPATIENT care.: Yes I certify that my determination is in accordance with my understanding of Medicare's requirements for reasonable and necessary INPATIENT services [42 CFR 412.3e].: Yes Medical Necessity: Risk of Complication if Not Cared For in Hospital - Plan Summary Plan Summary: barring any complications, the patient will be discharged home
[2017-08-04] MEDS: PROMETHAZINE HCL 25 MG TABLET PO PRN (21:35)
--- NOTE | 2017-08-04 22:30 | PDOC CONSULTATION ---
Consultation Consult Date: 08/04/17 Attending physician:: VIRGILIO TAVARES Consult reason:: blister left great toe r/o abscess History of Present Illness Admission Date/PCP: 08/02/17 23:59 History of Present Illness: ISSA BANEGAS is a 32 year old female with history of type 1 diabetes mellitus was admitted with above-mentioned complaint. The patient was seen in the ED on 07/31/2017 and was diagnosed with paronychia of her left big toe after pedicure about a week ago. She said that she started noticing increased swelling of her left big toe with some leakage from the nailbed few days later. She was offered admission to receive IV antibiotics and have her blood sugar better controlled but the patient wanted to try oral medications instead. She was discharged on Clinda. According to the patient, she received IV antibiotics while in the ED but I cannot find what she has been given. The patient said that she works as a room service waiter/waitress and was on her feet all day. And later in the evening, she noticed that her left foot was more swollen and painful and that the erythema started spreading beyond her ankle but she denied any fever or chills. She also had a blister on her left big toe. In the ED, she was hemodynamically stable. Her WBC was 10.2 and her blood sugar was 387 with anion gap of 12. Lactic acid was 1.1. An x-ray of her left foot was done on 07/31/2017 which was negative for any acute findings. She received 1 g of vancomycin x1 and 3.375 mg IV Zosyn 1. I have been consulted to evaluate a blister on her left big toe to rule out an abscess. Subjectively the patient and her nurse tell me the blister is significantly improved. No purulent drainage noted. Past Medical History Endocrine Medical History: Reports: Diabetes Mellitus Type 1 Hematology: Reports: Anemia Past Surgical History Past Surgical History: Reports: Section - x2, Tubal Ligation Social History Smoking Status: Never Smoker Frequency of Alcohol Use: Occasional - vodka. Hx Recreational Drug Use: No Drugs: None Hx Prescription Drug Abuse: No Family History Family History: DM, Hypertension, Other - asthma Parental Family History Reviewed: Yes Children Family History Reviewed: Yes Sibling(s) Family History Reviewed.: Yes Medication/Allergy Home Medications: Insulin Glargine,Hum.rec.anlog [Lantus Insulin 100 Unit/mL] 55 units SUBCUT QHS 07/31/17 Clindamycin HCl 300 mg PO Q8 MDD FILLED 07/31 FOR 7DS 08/02/17 Allergies/Adverse Reactions: hydromorphone HCl [From Dilaudid] Allergy (Severe, Verified 08/01/17 20:26) Anaphylaxis Review of Systems Constitutional: ABSENT: chills, fever(s), headache(s), weight gain, weight loss Eyes: ABSENT: visual disturbances Ears: ABSENT: hearing changes Cardiovascular: ABSENT: chest pain, dyspnea on exertion, edema, orthropnea, palpitations Respiratory: ABSENT: cough, hemoptysis Gastrointestinal: ABSENT: abdominal pain, constipation, diarrhea, hematemesis, hematochezia, nausea, vomiting Musculoskeletal: ABSENT: joint swelling Integumentary: PRESENT: as per HPI Neurological: ABSENT: abnormal gait, abnormal speech, confusion, dizziness, focal weakness, syncope Psychiatric: ABSENT: anxiety, depression, homidical ideation, suicidal ideation Endocrine: PRESENT: as per HPI Physical Exam Vital Signs: Temp Pulse Resp BP Pulse Ox 99.0 F 92 16 125/80 98 08/04/17 19:36 08/04/17 19:36 08/04/17 19:36 08/04/17 19:36 08/04/17 19:36 Intake & Output 08/03/17 08/04/17 08/05/17 06:59 06:59 06:59 Intake Total 240 540 Balance 240 540 General appearance: PRESENT: no acute distress, well-developed, well-nourished Head exam: PRESENT: atraumatic, normocephalic Eye exam: PRESENT: conjunctiva pink, EOMI, PERRLA. ABSENT: scleral icterus Respiratory exam: PRESENT: clear to auscultation dillan. ABSENT: rales, rhonchi, wheezes Cardiovascular exam: PRESENT: RRR. ABSENT: diastolic murmur, rubs, systolic murmur GI/Abdominal exam: PRESENT: normal bowel sounds, soft. ABSENT: distended, guarding, mass, organolmegaly, rebound, tenderness Extremities exam: PRESENT: other - mild edema of the dorsum of the left foot toward the big toe. a blister is noted on the dorsum of the big toe , no purulence noted. measures about 2cm x 1.8cm x 1.4cm Neurological exam: PRESENT: alert, awake, oriented to person, oriented to place , oriented to time, oriented to situation, CN II-XII grossly intact. ABSENT: motor sensory deficit Skin exam: PRESENT: other - mild edema of the dorsum of the left foot toward the big toe. a blister is noted on the dorsum of the big toe , no purulence noted. measures about 2cm x 1.8cm x 1.4cm Results Laboratory Results: 08/04/17 08:01 08/04/17 08:01 08/04/17 08/04/17 08:01 08:01 WBC 11.3 H RBC 4.70 Hgb 9.2 L Hct 30.3 L MCV 65 L MCH 19.7 L MCHC 30.4 L RDW 17.5 H Plt Count 514 H Seg Neutrophils % 63.6 Lymphocytes % 24.8 Monocytes % 9.0 Eosinophils % 1.6 Basophils % 1.0 Absolute Neutrophils 7.2 Absolute Lymphocytes 2.8 Absolute Monocytes 1.0 Absolute Eosinophils 0.2 Absolute Basophils 0.1 Sodium 142.4 Potassium 3.7 Chloride 107 Carbon Dioxide 28 Anion Gap 7 BUN 5 L Creatinine 0.87 Est GFR ( Amer) > 60 Est GFR (Non-Af Amer) > 60 Glucose 105 Calcium 9.4 Phosphorus 4.2 Magnesium 1.8 Assessment & Plan - Diagnosis (1) Cellulitis of left foot Is this a current diagnosis for this admission?: Yes (3) Type 1 diabetes mellitus Qualifiers: Diabetes mellitus complication status: with unspecified complications Qualified Code(s): E10.8 - Type 1 diabetes mellitus with unspecified complications Is this a current diagnosis for this admission?: Yes - Plan Summary Plan Summary: No abscess noted at this time Continue antibiotic therapy for cellulitis of the foot and toe. Leave blister unroofed for now as it is shrinking.
[2017-08-04] MEDS: INSULIN GLARGINE,HUM.REC.ANLOG 300 UNIT/3 ML INSULN.PEN SUBCUT SCH (22:59)
[2017-08-05] MEDS: IMIPENEM/CILASTATIN SODIUM 500 MG in NORMAL SALINE 100 ML IV SCH ×3 (01:00→13:42)
[2017-08-05] MEDS: VANCOMYCIN HCL 1,000 MG in DEXTROSE 5%-WATER 250 ML IV SCH ×2 (02:45→09:38)
[2017-08-05 08:03] LABS: HEMATOCRIT 31.3 % (36.0-47.0); HEMOGLOBIN 9.5 g/dL (12.0-15.5); MEAN CORPUSCULAR HEMOGLOBIN 19.5 pg (27.0-33.4); MEAN CORPUSCULAR HGB CONC 30.2 g/dL (32.0-36.0); MEAN CORPUSCULAR VOLUME 65 fl (80-97); PLATELET COUNT 502 10^3/uL (150-450); RED BLOOD COUNT 4.84 10^6/uL (3.72-5.28); RED CELL DISTRIBUTION WIDTH 17.9 % (11.5-14.0); WHITE BLOOD COUNT 11.1 10^3/uL (4.0-10.5)
[2017-08-05] MEDS: INSULIN LISPRO 100 UNIT/ML 3 ML VIAL SUBCUT PRN (14:08)
--- NOTE | 2017-08-05 14:25 | Progress Note ---
Provider Note Provider Note: ID Consult Note Asked to review patient's chart by Pharmacy. Ms Camarillo is a 32 yo poorly controlled diabetic who presented to the ED with L 1st toe paronychia. She took some clindamycin as an outpatient, but she returned a few days later with an erythematous L foot with streaking up to the midcalf, per notes. She did not have a fever. She had a fluid filled vesicle on her toe. Her foot was evaluated by Surgery. No abscess was found. She has been treated with vancomycin/Zosyn, which was then changed to vancomycin/Primaxin. Plain films of the foot do not show foreign body or evidence of osteomyelitis. Impression/Recommendations Nonpurulent L foot cellulitis - Most likely due to Strep species as this is a nonpurulent cellulitis - Recommend de-escalating from vancomycin/Primaxin to IV cefazolin 1 g q8h. Consider completing the remainder of 7-10 days duration of therapy with cefazolin or Keflex 500 mg q6h PO when the patient is ready for discharge. Lion Ojeda MD pager [phone]
--- NOTE | 2017-08-05 16:29 | PDOC PROGRESS REPORT ---
Subjective Progress Note for:: 08/05/17 Subjective:: ISSA BANEGAS is a 32 y.o. female admitted for left foot cellulitis. She initially presented to the emergency department on 07/31, she was discharged home with oral antibiotics. The following day she returned to the ED because the swelling of the left great toe was worse. Admitted to [facility] for IV antibiotics. Patient was seen this morning on rounds, she has no complaints at this time. The serous filled paronychia of her L great toe was evaluated by Surgery, no evidence of abscess and not needing I&D. Cellulitis of L great toe persists with soft tissue swelling to the dorsal aspect of the L foot. Reason For Visit: LEFT FOOT CELLULITIS, DM 1 Physical Exam Vital Signs: Temp Pulse Resp BP Pulse Ox 97.8 F 90 15 134/85 H 99 08/05/17 11:56 08/05/17 11:56 08/05/17 11:56 08/05/17 11:56 08/05/17 11:56 Intake & Output 08/04/17 08/05/17 08/06/17 06:59 06:59 06:59 Intake Total 540 1000 Balance 540 1000 Weight 62.9 kg General appearance: PRESENT: no acute distress Head exam: PRESENT: atraumatic Eye exam: PRESENT: conjunctiva pink Mouth exam: PRESENT: moist Neck exam: PRESENT: full ROM Respiratory exam: PRESENT: symmetrical, unlabored Pulses: PRESENT: normal dorsalis pedis pul Extremities exam: PRESENT: pedal edema - left foot Musculoskeletal exam: PRESENT: ambulatory, full ROM Neurological exam: PRESENT: alert, awake, oriented to person, oriented to place , oriented to time, oriented to situation Skin exam: PRESENT: erythema - TO R TOE, normal color Results Laboratory Results: 08/05/17 07:31 08/04/17 08:01 08/05/17 07:31 WBC 11.1 H RBC 4.84 Hgb 9.5 L Hct 31.3 L MCV 65 L MCH 19.5 L MCHC 30.2 L RDW 17.9 H Plt Count 502 H Status: Imported from PACS Assessment & Plan - Diagnosis (1) Cellulitis of left foot Is this a current diagnosis for this admission?: Yes Plan: Circumferential erythema and edema to left great toe and dorsal aspect of the left foot. Serous filled paronychia surrounding toenail of left great toe, no abscess formation. X-ray left foot done 07/31 was negative for any acute findings, no evidence of osteomyelitis. The patient remains afebrile, no leukocytosis. Surgery consulted, they do not feel that I&D is necessary since there is no underlying abscess ID recommends downgrading antibiotics to appropriately cover nonpurulent cellulitis. Will switch from vancomycin/imipenem to cefazolin 1G q8hr (2) Type 1 diabetes mellitus Qualifiers: Diabetes mellitus complication status: with unspecified complications Qualified Code(s): E10.8 - Type 1 diabetes mellitus with unspecified complications Is this a current diagnosis for this admission?: Yes Plan: Lantus 50 units daily. Humalog sliding scale. - Time Time Spent with patient: 15-24 minutes Anticipated discharge: Home Within: within 24 hours - Inpatient Certification Based on my medical assessment, after consideration of the patient's comorbidities, presenting symptoms, or acuity I expect that the services needed warrant INPATIENT care.: Yes I certify that my determination is in accordance with my understanding of Medicare's requirements for reasonable and necessary INPATIENT services [42 CFR 412.3e].: Yes Medical Necessity: Risk of Complication if Not Cared For in Hospital - Plan Summary Plan Summary: Ultimately, the plan is to discharge the patient home.
[2017-08-05] MEDS: PROMETHAZINE HCL 25 MG TABLET PO PRN ×2 (17:20→21:41)
[2017-08-05] MEDS: CEFAZOLIN 1 GM/D5W RTU 1 GM/50 ML RTUPB IV SCH (21:26)
[2017-08-05] MEDS ORDERED: PROMETHAZINE HCL INJ 25 MG/1 ML VIAL ONE (22:19)
[2017-08-05] MEDS ORDERED: PROMETHAZINE HCL INJ 25 MG/1 ML VIAL IV PRN (22:22)
[2017-08-05] MEDS ORDERED: PROMETHAZINE HCL INJ 25 MG/1 ML VIAL IV ONE (22:30)
[2017-08-05] MEDS: INSULIN GLARGINE,HUM.REC.ANLOG 300 UNIT/3 ML INSULN.PEN SUBCUT SCH (23:35)
[2017-08-06] MEDS: CEFAZOLIN 1 GM/D5W RTU 1 GM/50 ML RTUPB IV SCH ×3 (05:34→23:10)
[2017-08-06 06:39] LABS: HEMATOCRIT 31.7 % (36.0-47.0); HEMOGLOBIN 9.6 g/dL (12.0-15.5); MEAN CORPUSCULAR HEMOGLOBIN 19.5 pg (27.0-33.4); MEAN CORPUSCULAR HGB CONC 30.4 g/dL (32.0-36.0); PLATELET COUNT 489 10^3/uL (150-450); RED BLOOD COUNT 4.94 10^6/uL (3.72-5.28); WHITE BLOOD COUNT 14.6 10^3/uL (4.0-10.5)
[2017-08-06 07:17] LABS: MEAN CORPUSCULAR VOLUME 64 fl (80-97)
--- NOTE | 2017-08-06 11:52 | RADIOLOGY REPORT (SQ) ---
EXAM DESCRIPTION: PICC INSERTION; FLUORO/CV PLACEMENT; U/S GUIDE FOR VASCULAR ACCESS COMPLETED DATE/TIME: 08/06/2017 11:04 am; 08/06/2017 11:02 am REASON FOR STUDY: poor iv access; IV ACCESS COMPARISON: None. FLUOROSCOPY TIME: 11 seconds 2 images saved to PACS. TECHNIQUE: Fluoroscopic and ultrasound guided PICC placement. LIMITATIONS: None. PROCEDURE: After written consent and assessment were obtained, the patient was brought into the fluo roscopy room and place supine on the table. Ultrasound was used on the patient's left arm for PICC a ccess. The left arm was prepped and draped in a sterile fashion along with the ultrasound probe. The entry site was anesthetized with 1% lidocaine. A 21 gauge 7 cm needle was advanced through the skin a nd into the left basilic vein under live ultrasound guidance. An ultrasound image was saved to PACS confirming access site. A .018 guide wire was then inserted through the needle and into the venous s ystem. The needle was the removed and an 11 blade scalpel was used to make a 1cm skin incision. A 5 fr peel-away sheath was advanced over the wire and into the venous system. A measurement was then mad e using the existing wire and live fluoroscopic guidance. The wire was then removed and the trimmed. The PICC was advanced through the peel-away sheath and into the venous system. The peel-away sheath w as removed and the catheter was adhered to the patients arm with a stat lock. The catheter was then a spirated and flushed and a sterile bandage was placed over the access site. A fluoroscopic spot imag e was saved to PACS confirming the catheter tip within the superior vena cava. IMPRESSION: SUCCESSFUL PLACEMENT OF A 5 FR DUAL LUMEN 37 CM PICC IN THE LEFT BASILIC VEIN. COMMENT: Patient medication list reviewed: Yes- Quality ID# 130:Eligible professional attests to doc umenting in the medical record they obtained, updated, or reviewed the patient's current medications. . Quality ID 145: Final reports for procedures using fluoroscopy that document radiation exposure tristen marisol, or exposure time and number of fluorographic images (if radiation exposure indices are not avail able) Quality ID #76: The patient was prepped and draped using maximum sterile barrier technique including cap, mask, sterile gown, sterile gloves, a large sterile sheet, hand hygiene, and 2% Chlorhexidine fo r cutaneous antisepsis. When ultrasound is used, sterile ultrasound techniques are followed requiring sterile gel and sterile probes. TECHNICAL DOCUMENTATION: JOB ID: [id number] [facility]- All Rights Reserved Reading location - IP/workstation name: [email or web address]
--- NOTE | 2017-08-06 13:04 | PDOC PROGRESS REPORT ---
Subjective Progress Note for:: 08/06/17 Subjective:: The patient is a 32-year-old female with a history of type 1 diabetes mellitus who was admitted on 08/02/17 for worsening left foot cellulitis failing outpatient clindamycin. The patient is seen on morning rounds. She is found resting in the bedside recliner on room air. She states that she is having nausea with vomiting; unable to tolerate p.o. fluids at this time. She denies fever, chills, abdominal pain, diarrhea, dysuria or hematuria. States that the appearance of her foot is essentially unchanged; she does deny drainage and pain. She has no other questions or concerns at this time. Reason For Visit: LEFT FOOT CELLULITIS, DM 1 Physical Exam Vital Signs: Temp Pulse Resp BP Pulse Ox 100.0 F 101 H 16 112/64 100 08/06/17 12:33 08/06/17 12:33 08/06/17 12:33 08/06/17 12:33 08/06/17 12:33 Intake & Output 08/05/17 08/06/17 08/07/17 06:59 06:59 06:59 Intake Total 1000 200 Balance 1000 200 Weight 62.9 kg General appearance: PRESENT: no acute distress, cooperative, well-developed, well-nourished Head exam: PRESENT: atraumatic, normocephalic Eye exam: PRESENT: conjunctiva pink, EOMI, PERRLA. ABSENT: scleral icterus Ear exam: PRESENT: normal external ear exam Mouth exam: PRESENT: moist, tongue midline Neck exam: ABSENT: carotid bruit, JVD, lymphadenopathy, thyromegaly Respiratory exam: PRESENT: clear to auscultation dillan, symmetrical, unlabored. ABSENT: rales, rhonchi, wheezes Cardiovascular exam: PRESENT: RRR, +S1, +S2, tachycardia - HR 101. ABSENT: diastolic murmur, rubs, systolic murmur Pulses: PRESENT: normal dorsalis pedis pul Vascular exam: PRESENT: normal capillary refill GI/Abdominal exam: PRESENT: normal bowel sounds, soft. ABSENT: distended, guarding, mass, organolmegaly, rebound, tenderness Rectal exam: PRESENT: deferred Extremities exam: PRESENT: full ROM. ABSENT: calf tenderness, clubbing, pedal edema Neurological exam: PRESENT: alert, awake, oriented to person, oriented to place , oriented to time, oriented to situation, CN II-XII grossly intact. ABSENT: motor sensory deficit Psychiatric exam: PRESENT: appropriate affect, normal mood. ABSENT: homicidal ideation, suicidal ideation Skin exam: PRESENT: dry, erythema, warm, other - Paronychia to left great toe; purulent fluid noted at cuticle with large fluid-filled blister to dorsal aspect of great toe. Erythema and edema to toe and midfoot. No pain or active drainage.. ABSENT: cyanosis, intact, rash Results Laboratory Results: 08/06/17 06:02 08/04/17 08:01 08/06/17 06:02 WBC 14.6 H RBC 4.94 Hgb 9.6 L Hct 31.7 L MCV 64 L MCH 19.5 L MCHC 30.4 L RDW 18.0 H Plt Count 489 H Impressions: Guidance Fluoroscopy 08/06/17 00:00 IMPRESSION: SUCCESSFUL PLACEMENT OF A 5 FR DUAL LUMEN 37 CM PICC IN THE LEFT BASILIC VEIN. Interventional Vascular Procedure 08/06/17 00:00 IMPRESSION: SUCCESSFUL PLACEMENT OF A 5 FR DUAL LUMEN 37 CM PICC IN THE LEFT BASILIC VEIN. PICC Line Insertion 08/06/17 00:00 IMPRESSION: SUCCESSFUL PLACEMENT OF A 5 FR DUAL LUMEN 37 CM PICC IN THE LEFT BASILIC VEIN. Assessment & Plan - Diagnosis (1) Cellulitis of toe of left foot Is this a current diagnosis for this admission?: Yes Plan: Circumferential edema and erythema to left great toe and dorsal aspect of left foot. Purulent fluid blister to cuticle line with clear fluid-filled blister to dorsal aspect of great toe. Three-view x-ray of left great toe (07/31/17): Negative study of left toe, no radiographic evidence of acute injury. Repeat blood cultures are obtained today Surgery was consulted; they did not feel that an I&D was necessary at that time since there was no underlying abscess. Infectious disease recommended transition from vancomycin/imipenem to cefazolin 1 g every 8 hours. The patient is noted to have an increased white count, low-grade fever, and tachycardia today; will obtain repeat blood cultures, MRSA screening, and wound culture. Low threshold for escalation of antibiotics as the patient nearly meets clinical criteria for sepsis (WBC 14, Temp 100.0, HR 101) (2) Nausea and vomiting Qualifiers: Vomiting type: unspecified Vomiting Intractability: non-intractable Qualified Code(s): R11.2 - Nausea with vomiting, unspecified Is this a current diagnosis for this admission?: Yes Plan: The patient reports nausea and vomiting that is well managed with IV promethazine. Nursing confirms that patient is unable to tolerate more than a few sips of fluids at a time. The patient denies abdominal pain, diarrhea, and dysuria. This may be related to her acute illness (cellulitis of left great toe). We will initiate gentle IV fluid maintenance therapy. Antiemetics as needed. We will continue to monitor closely. (3) Type 1 diabetes mellitus Qualifiers: Diabetes mellitus complication status: with unspecified complications Qualified Code(s): E10.8 - Type 1 diabetes mellitus with unspecified complications Is this a current diagnosis for this admission?: Yes Plan: The patient is currently taking a clear liquid diet secondary to nausea with vomiting. She is ordered a consistent carb diet as tolerated. Accu-Cheks before meals and at bedtime with Humalog for sliding scale coverage. Lantus 50 units nightly. We will ask registered dietitian and patient educator to visit with the patient. - Time Time Spent with patient: 25-34 minutes Medications reviewed and adjusted accordingly: Yes - Inpatient Certification Based on my medical assessment, after consideration of the patient's comorbidities, presenting symptoms, or acuity I expect that the services needed warrant INPATIENT care.: Yes I certify that my determination is in accordance with my understanding of Medicare's requirements for reasonable and necessary INPATIENT services [42 CFR 412.3e].: Yes Medical Necessity: Need For IV Fluids, Need for IV Antibiotics
[2017-08-06] MEDS: HEPARIN SOD (PORCINE) 5,000 UNIT/ML 1 ML SYRINGE SUBCUT SCH ×2 (14:46→23:13)
[2017-08-06] MEDS: NORMAL SALINE 1000 ML 1,000 ML IV PRN ×2 (15:05→23:10)
[2017-08-06 23:06] LABS: APPEARANCE,URINE SLIGHTLY-CLOUDY; BILIRUBIN,URINE NEGATIVE (NEGATIVE); COLOR,URINE YELLOW; GLUCOSE, URINE 50 mg/dL (NEGATIVE); KETONES,URINE NEGATIVE (NEGATIVE); LEUKOCYTE ESTERASE,URINE TRACE (NEGATIVE); NITRITE,URINE NEGATIVE (NEGATIVE); PROTEIN,URINE NEGATIVE (NEGATIVE); URINE SPECIFIC GRAVITY 1.003; UROBILINOGEN,URINE NEGATIVE mg/dL (<2.0)
[2017-08-06] MEDS: NORMAL SALINE 10 ML SDV (SCHEDULED) IV SCH (23:11)
[2017-08-06] MEDS: INSULIN LISPRO 100 UNIT/ML 3 ML VIAL SUBCUT PRN (23:14)
[2017-08-07] MEDS: ACETAMINOPHEN 325 MG TABLET PO PRN (01:18)
[2017-08-07] MEDS: CEFAZOLIN 1 GM/D5W RTU 1 GM/50 ML RTUPB IV SCH (06:02)
[2017-08-07] MEDS: NORMAL SALINE 10 ML SDV (AFTER EACH USE) IV PRN ×2 (06:03→18:40)
[2017-08-07] MEDS: HEPARIN SOD (PORCINE) 5,000 UNIT/ML 1 ML SYRINGE SUBCUT SCH ×2 (06:23→18:38)
[2017-08-07] MEDS: INSULIN GLARGINE,HUM.REC.ANLOG 300 UNIT/3 ML INSULN.PEN SUBCUT SCH (06:26)
[2017-08-07 07:00] LABS: ALANINE AMINOTRANSFERASE 14 U/L (9-52); ALBUMIN 2.5 g/dL (3.5-5.0); ALKALINE PHOSPHATASE 60 U/L (38-126); ANION GAP 6 (5-19); ASPARTATE AMINO TRANSFERASE 11 U/L (14-36); BLOOD UREA NITROGEN 4 mg/dL (7-20); CALCIUM 7.7 mg/dL (8.4-10.2); CARBON DIOXIDE 32 mmol/L (22-30); CHLORIDE 107 mmol/L (98-107); GLUCOSE 77 mg/dL (75-110); SODIUM 145.1 mmol/L (137-145); TOTAL PROTEIN 5.6 g/dL (6.3-8.2)
[2017-08-07 07:03] LABS: BILIRUBIN,TOTAL < 0.1 mg/dL (0.2-1.3)
[2017-08-07] MEDS ORDERED: NORMAL SALINE 1000 ML 1,000 ML IV PRN (07:31)
[2017-08-07 08:26] LABS: ABSOLUTE BASOPHILS # (AUTO) 0.1 10^3/uL (0.0-0.2); ABSOLUTE EOSINOPHILS # (AUTO) 0.5 10^3/uL (0.0-0.6); ABSOLUTE LYMPHOCYTES (AUTO) 3.4 10^3/uL (0.5-4.7); ABSOLUTE MONOCYTES (AUTO) 1.3 10^3/uL (0.1-1.4); ABSOLUTE NEUT (AUTO) 8.1 10^3/uL (1.7-8.2); BASOPHILS % (AUTO) 1.1 % (0-2); HEMATOCRIT 29.9 % (36.0-47.0); LYMPHOCYTES % (AUTO) 25.2 % (13-45); MEAN CORPUSCULAR HEMOGLOBIN 19.5 pg (27.0-33.4); MEAN CORPUSCULAR HGB CONC 30.1 g/dL (32.0-36.0); MEAN CORPUSCULAR VOLUME 65 fl (80-97); MONOCYTES % (AUTO) 9.4 % (3-13); PLATELET COUNT 481 10^3/uL (150-450); RED BLOOD COUNT 4.62 10^6/uL (3.72-5.28); RED CELL DISTRIBUTION WIDTH 17.8 % (11.5-14.0); SEGMENTED NEUTROPHILS % (AUTO) 60.3 % (42-78); TOTAL CELLS COUNTED % (AUTO) 100 %; WHITE BLOOD COUNT 13.4 10^3/uL (4.0-10.5)
[2017-08-07] MEDS: POTASSI CL 20 MEQ/50 ML RIDER 20 MEQ/50 ML RTUPB IV SCH ×3 (08:53→15:04)
[2017-08-07 08:59] LABS: ANISOCYTOSIS 1+; HYPOCHROMASIA 1+; OVALOCYTES SLIGHT; POIKILOCYTOSIS SLIGHT
[2017-08-07] MEDS ORDERED: METHADONE HCL 10 MG TABLET PO ONE (09:00)
[2017-08-07 09:01] LABS: PLATELET COMMENT INCREASED
[2017-08-07] MEDS: CEPHALEXIN 500 MG CAPSULE PO SCH ×2 (11:29→18:37)
[2017-08-07] MEDS: INSULIN LISPRO 100 UNIT/ML 3 ML VIAL SUBCUT PRN ×2 (12:53→22:48)
[2017-08-07] MEDS: NORMAL SALINE 1000 ML 1,000 ML IV PRN (13:08)
--- NOTE | 2017-08-07 14:05 | PDOC PROGRESS REPORT ---
Subjective Progress Note for:: 08/07/17 Subjective:: The patient is a 32-year-old female with a history of type 1 diabetes mellitus who was admitted on 08/02/17 for worsening left foot cellulitis failing outpatient clindamycin. The patient is seen on morning rounds. She is found resting in the bedside recliner on room air. She states that her nausea and vomiting have resolved and that she is now tolerating p.o. intake. She denies fever, chills, chest pain, dyspnea, abdominal pain, diarrhea, dysuria or hematuria. She denies drainage and pain to her foot. She has no questions or concerns at this time. Reason For Visit: LEFT FOOT CELLULITIS, DM 1 Physical Exam Vital Signs: Temp Pulse Resp BP Pulse Ox 98.8 F 107 H 15 122/89 H 99 08/07/17 11:15 08/07/17 11:15 08/07/17 11:15 08/07/17 11:15 08/07/17 11:15 Intake & Output 08/06/17 08/07/17 08/08/17 06:59 06:59 06:59 Intake Total 200 1806 Output Total 1300 Balance 200 506 Weight 62.9 kg General appearance: PRESENT: no acute distress, well-developed, well-nourished Head exam: PRESENT: atraumatic, normocephalic Eye exam: PRESENT: conjunctiva pink, EOMI, PERRLA. ABSENT: scleral icterus Ear exam: PRESENT: normal external ear exam Mouth exam: PRESENT: moist, tongue midline Neck exam: ABSENT: carotid bruit, JVD, lymphadenopathy, thyromegaly Respiratory exam: PRESENT: clear to auscultation dillan, symmetrical, unlabored. ABSENT: rales, rhonchi, wheezes Cardiovascular exam: PRESENT: RRR, +S1, +S2. ABSENT: diastolic murmur, rubs, systolic murmur Pulses: PRESENT: normal dorsalis pedis pul Vascular exam: PRESENT: normal capillary refill GI/Abdominal exam: PRESENT: normal bowel sounds, soft. ABSENT: distended, guarding, mass, organolmegaly, rebound, tenderness Rectal exam: PRESENT: deferred Extremities exam: PRESENT: full ROM. ABSENT: calf tenderness, clubbing, pedal edema Neurological exam: PRESENT: alert, awake, oriented to person, oriented to place , oriented to time, oriented to situation, CN II-XII grossly intact. ABSENT: motor sensory deficit Psychiatric exam: PRESENT: appropriate affect, normal mood. ABSENT: homicidal ideation, suicidal ideation Skin exam: PRESENT: dry, erythema, warm, other - Paronychia to left great toe; purulent fluid noted at cuticle edge with large fluid filled blister (intact) to dorsal aspect of toe. Erythema and edema to toe appears to be resolving. No pain or active drainage.. ABSENT: cyanosis, intact, rash Results Laboratory Results: 08/07/17 08:04 08/07/17 06:10 08/06/17 08/07/17 08/07/17 22:50 06:10 06:10 WBC Cancelled RBC Cancelled Hgb Cancelled Hct Cancelled MCV Cancelled MCH Cancelled MCHC Cancelled RDW Cancelled Plt Count Cancelled Seg Neutrophils % Cancelled Lymphocytes % Cancelled Monocytes % Cancelled Eosinophils % Cancelled Basophils % Cancelled Absolute Neutrophils Cancelled Absolute Lymphocytes Cancelled Absolute Monocytes Cancelled Absolute Eosinophils Cancelled Absolute Basophils Cancelled Sodium 145.1 H Potassium 3.0 L* Chloride 107 Carbon Dioxide 32 H Anion Gap 6 BUN 4 L Creatinine 0.91 Est GFR ( Amer) > 60 Est GFR (Non-Af Amer) > 60 Glucose 77 Calcium 7.7 L Total Bilirubin < 0.1 L AST 11 L ALT 14 Alkaline Phosphatase 60 Total Protein 5.6 L Albumin 2.5 L Urine Color YELLOW Urine Appearance SLIGHTLY-CLOUDY Urine pH 6.0 Ur Specific [place] 1.003 Urine Protein NEGATIVE Urine Glucose (UA) 50 H Urine Ketones NEGATIVE Urine Blood NEGATIVE Urine Nitrite NEGATIVE Ur Leukocyte Esterase TRACE H Urine WBC (Auto) 1 Urine RBC (Auto) 1 08/07/17 08:04 WBC 13.4 H RBC 4.62 Hgb 9.0 L Hct 29.9 L MCV 65 L MCH 19.5 L MCHC 30.1 L RDW 17.8 H Plt Count 481 H Seg Neutrophils % 60.3 Lymphocytes % 25.2 Monocytes % 9.4 Eosinophils % 4.0 Basophils % 1.1 Absolute Neutrophils 8.1 Absolute Lymphocytes 3.4 Absolute Monocytes 1.3 Absolute Eosinophils 0.5 Absolute Basophils 0.1 Sodium Potassium Chloride Carbon Dioxide Anion Gap BUN Creatinine Est GFR ( Amer) Est GFR (Non-Af Amer) Glucose Calcium Total Bilirubin AST ALT Alkaline Phosphatase Total Protein Albumin Urine Color Urine Appearance Urine pH Ur Specific [place] Urine Protein Urine Glucose (UA) Urine Ketones Urine Blood Urine Nitrite Ur Leukocyte Esterase Urine WBC (Auto) Urine RBC (Auto) Impressions: Guidance Fluoroscopy 08/06/17 00:00 IMPRESSION: SUCCESSFUL PLACEMENT OF A 5 FR DUAL LUMEN 37 CM PICC IN THE LEFT BASILIC VEIN. Interventional Vascular Procedure 08/06/17 00:00 IMPRESSION: SUCCESSFUL PLACEMENT OF A 5 FR DUAL LUMEN 37 CM PICC IN THE LEFT BASILIC VEIN. PICC Line Insertion 08/06/17 00:00 IMPRESSION: SUCCESSFUL PLACEMENT OF A 5 FR DUAL LUMEN 37 CM PICC IN THE LEFT BASILIC VEIN. Assessment & Plan - Diagnosis (1) Cellulitis of toe of left foot Is this a current diagnosis for this admission?: Yes Plan: Appears improved; decreased systemic symptoms as well. N/V has resolved. Low grade temp of 100.2 overnight. Circumferential edema and erythema to left great toe and dorsal aspect of left foot. Purulent fluid blister to cuticle line with clear fluid-filled blister to dorsal aspect of great toe. Three-view x-ray of left great toe (07/31/17): Negative study of left toe, no radiographic evidence of acute injury. Repeat blood cultures: NGTD MRSA screening pending Wound culture (preliminary); no growth Surgery was consulted; they did not feel that an I&D was necessary at that time since there was no underlying abscess. Impproved local appearance and systemic symptoms; WBS trending down. Will transition to p.o. keflex in anticipation of discharge to home tomorrow. (2) Nausea and vomiting Qualifiers: Vomiting type: unspecified Vomiting Intractability: non-intractable Qualified Code(s): R11.2 - Nausea with vomiting, unspecified Is this a current diagnosis for this admission?: Yes Plan: Resolved. The patient is now tolerating a regular diet. Antiemetics as needed. (3) Type 1 diabetes mellitus Qualifiers: Diabetes mellitus complication status: with unspecified complications Qualified Code(s): E10.8 - Type 1 diabetes mellitus with unspecified complications Is this a current diagnosis for this admission?: Yes Plan: Consistent carb diet Accu-Cheks before meals and at bedtime with Humalog for sliding scale coverage. Lantus 50 units nightly. We will ask registered dietitian and patient educator to visit with the patient. - Time Time Spent with patient: 15-24 minutes Medications reviewed and adjusted accordingly: Yes Anticipated discharge: Home Within: within 24 hours
[2017-08-07] MEDS: NORMAL SALINE 10 ML SDV (SCHEDULED) IV SCH (18:40)
[2017-08-08] MEDS: CEPHALEXIN 500 MG CAPSULE PO SCH ×3 (00:04→12:41)
[2017-08-08] MEDS: HEPARIN SOD (PORCINE) 5,000 UNIT/ML 1 ML SYRINGE SUBCUT SCH ×3 (00:35→16:16)
[2017-08-08] MEDS: ACETAMINOPHEN 325 MG TABLET PO PRN ×2 (00:37→19:20)
[2017-08-08] MEDS: NORMAL SALINE 1000 ML 1,000 ML IV PRN (05:41)
[2017-08-08] MEDS: INSULIN LISPRO 100 UNIT/ML 3 ML VIAL SUBCUT PRN ×3 (09:25→22:27)
[2017-08-08] MEDS: NORMAL SALINE 10 ML SDV (SCHEDULED) IV SCH (09:49)
[2017-08-08 10:35] LABS: ABSOLUTE BASOPHILS # (AUTO) 0.1 10^3/uL (0.0-0.2); ABSOLUTE EOSINOPHILS # (AUTO) 0.4 10^3/uL (0.0-0.6); ABSOLUTE NEUT (AUTO) 8.1 10^3/uL (1.7-8.2); BASOPHILS % (AUTO) 0.6 % (0-2); EOSINOPHILS % (AUTO) 3.3 % (0-6); HEMATOCRIT 27.1 % (36.0-47.0); HEMOGLOBIN 8.3 g/dL (12.0-15.5); LYMPHOCYTES % (AUTO) 23.9 % (13-45); MEAN CORPUSCULAR HEMOGLOBIN 19.7 pg (27.0-33.4); MEAN CORPUSCULAR HGB CONC 30.7 g/dL (32.0-36.0); MEAN CORPUSCULAR VOLUME 64 fl (80-97); MONOCYTES % (AUTO) 7.9 % (3-13); PLATELET COUNT 462 10^3/uL (150-450); RED BLOOD COUNT 4.23 10^6/uL (3.72-5.28); RED CELL DISTRIBUTION WIDTH 17.9 % (11.5-14.0); SEGMENTED NEUTROPHILS % (AUTO) 64.3 % (42-78); TOTAL CELLS COUNTED % (AUTO) 100 %; WHITE BLOOD COUNT 12.6 10^3/uL (4.0-10.5)
[2017-08-08 10:53] LABS: BLOOD UREA NITROGEN 4 mg/dL (7-20); CALCIUM 8.3 mg/dL (8.4-10.2); CARBON DIOXIDE 33 mmol/L (22-30); CHLORIDE 107 mmol/L (98-107); GLUCOSE 150 mg/dL (75-110); POTASSIUM 3.6 mmol/L (3.6-5.0)
[2017-08-08 10:59] LABS: ANION GAP 5 (5-19); SODIUM 145.4 mmol/L (137-145)
[2017-08-08 11:03] LABS: HYPOCHROMASIA SLIGHT; OVALOCYTES SLIGHT; POIKILOCYTOSIS SLIGHT; TOXIC GRANULATION SLIGHT
[2017-08-08 11:04] LABS: PLATELET COMMENT ADEQUATE
--- NOTE | 2017-08-08 14:40 | Progress Note ---
Provider Note Provider Note: ID Consult Note Spoke with the provider and reviewed pt's chart. See prior note for details up to this point. Pt has resolving cellulitis of the foot. Was switched to Keflex yesterday. WBC continues to trend down. Had temp of 101.4 O/N occur once overnight. A culture was sent swabbing the intact skin near the paronychia. However, the area was not described as having any purulent drainage to culture. The patient is also having N&V. This has been going on throughout her hospitalization. She has no diarrhea or abdominal pain. Her abdominal exam is described as being benign - normoactive bowel sounds, soft, NT. She has refused a dose of Keflex due to nausea/vomiting. Impression/Recommendations Cellulitis of the foot, improving. Since she has had clinical improvement, continuing a 1st generation cephalosporin appears to be appropriate. Changing this from PO Keflex to IV Ancef would be prudent since she is not able to consistently tolerate PO Keflex right now. Unclear why she had fever once overnight, but it has not persisted. Recommend treating her N&V symptomatically , continuing IV Ancef for now, and monitoring. Lion Ojeda MD, pager [phone]
[2017-08-08] MEDS ORDERED: ONDANSETRON HCL INJ/PF 4 MG/2 ML SDV IV PRN (15:34)
--- NOTE | 2017-08-08 16:08 | PDOC PROGRESS REPORT ---
Subjective Progress Note for:: 08/08/17 Subjective:: The patient is a 32-year-old female with a history of type 1 diabetes mellitus who was admitted on 08/02/17 for worsening left foot cellulitis failing outpatient clindamycin. The patient is seen on morning rounds. She is found resting in the bedside recliner on room air. The patient states that she is feeling better. She denies chest pain, dyspnea, abdominal pain, diarrhea, dysuria or hematuria as well as pain to her foot. She does report intermittent nausea with 2 episodes of emesis last night. She has had poor p.o. intake secondary to persistent nausea. She denies abdominal pain. She believes that her nausea and vomiting are related to the Keflex. Reason For Visit: LEFT FOOT CELLULITIS, DM 1 Physical Exam Vital Signs: Temp Pulse Resp BP Pulse Ox 99.2 F 97 17 123/69 97 08/08/17 12:02 08/08/17 12:02 08/08/17 12:02 08/08/17 12:02 08/08/17 12:02 Intake & Output 08/07/17 08/08/17 08/09/17 06:59 06:59 06:59 Intake Total 1806 1090 Output Total 1300 2 Balance 506 1088 General appearance: PRESENT: no acute distress, well-developed, well-nourished Head exam: PRESENT: atraumatic, normocephalic Eye exam: PRESENT: conjunctiva pink, EOMI, PERRLA. ABSENT: scleral icterus Ear exam: PRESENT: normal external ear exam Mouth exam: PRESENT: moist, tongue midline Neck exam: ABSENT: carotid bruit, JVD, lymphadenopathy, thyromegaly Respiratory exam: PRESENT: clear to auscultation dillan, symmetrical, unlabored. ABSENT: rales, rhonchi, wheezes Cardiovascular exam: PRESENT: RRR, +S1, +S2. ABSENT: diastolic murmur, rubs, systolic murmur Pulses: PRESENT: normal dorsalis pedis pul Vascular exam: PRESENT: normal capillary refill GI/Abdominal exam: PRESENT: normal bowel sounds, soft. ABSENT: distended, guarding, mass, organolmegaly, rebound, tenderness Rectal exam: PRESENT: deferred Extremities exam: PRESENT: full ROM. ABSENT: calf tenderness, clubbing, pedal edema Neurological exam: PRESENT: alert, awake, oriented to person, oriented to place , oriented to time, oriented to situation, CN II-XII grossly intact. ABSENT: motor sensory deficit Psychiatric exam: PRESENT: appropriate affect, flat affect, normal mood. ABSENT : homicidal ideation, suicidal ideation Skin exam: PRESENT: dry, erythema - Erythema and edema to left great toe; does not extend to foot, warm. ABSENT: cyanosis, intact - Blister to the left great toe has popped; draining clear serosanguineous fluid, rash Results Laboratory Results: 08/08/17 10:20 08/08/17 10:20 08/08/17 08/08/17 08/08/17 07:45 07:45 09:30 WBC Cancelled Cancelled RBC Cancelled Cancelled Hgb Cancelled Cancelled Hct Cancelled Cancelled MCV Cancelled Cancelled MCH Cancelled Cancelled MCHC Cancelled Cancelled RDW Cancelled Cancelled Plt Count Cancelled Cancelled Seg Neutrophils % Cancelled Cancelled Lymphocytes % Cancelled Cancelled Monocytes % Cancelled Cancelled Eosinophils % Cancelled Cancelled Basophils % Cancelled Cancelled Absolute Neutrophils Cancelled Cancelled Absolute Lymphocytes Cancelled Cancelled Absolute Monocytes Cancelled Cancelled Absolute Eosinophils Cancelled Cancelled Absolute Basophils Cancelled Cancelled Sodium Cancelled Potassium Cancelled Chloride Cancelled Carbon Dioxide Cancelled Anion Gap Cancelled BUN Cancelled Creatinine Cancelled Est GFR ( Amer) Cancelled Est GFR (Non-Af Amer) Cancelled Glucose Cancelled Calcium Cancelled Lipase 08/08/17 08/08/17 08/08/17 09:30 10:20 10:20 WBC 12.6 H RBC 4.23 Hgb 8.3 L Hct 27.1 L MCV 64 L MCH 19.7 L MCHC 30.7 L RDW 17.9 H Plt Count 462 H Seg Neutrophils % 64.3 Lymphocytes % 23.9 Monocytes % 7.9 Eosinophils % 3.3 Basophils % 0.6 Absolute Neutrophils 8.1 Absolute Lymphocytes 3.0 Absolute Monocytes 1.0 Absolute Eosinophils 0.4 Absolute Basophils 0.1 Sodium Cancelled 145.4 H Potassium Cancelled 3.6 Chloride Cancelled 107 Carbon Dioxide Cancelled 33 H Anion Gap Cancelled 5 BUN Cancelled 4 L Creatinine Cancelled 0.94 Est GFR ( Amer) Cancelled > 60 Est GFR (Non-Af Amer) Cancelled > 60 Glucose Cancelled 150 H Calcium Cancelled 8.3 L Lipase 03/29/18 10:20 WBC RBC Hgb Hct MCV MCH MCHC RDW Plt Count Seg Neutrophils % Lymphocytes % Monocytes % Eosinophils % Basophils % Absolute Neutrophils Absolute Lymphocytes Absolute Monocytes Absolute Eosinophils Absolute Basophils Sodium Potassium Chloride Carbon Dioxide Anion Gap BUN Creatinine Est GFR ( Amer) Est GFR (Non-Af Amer) Glucose Calcium Lipase 35.8 08/06/17 22:50 Clean Catch Midstream Urine Culture - Final NO GROWTH 2 DAYS 08/06/17 15:05 Nasophary (Mrsa Only) MRSA Surveillance Culture - Final NO MRSA RECOVERED Impressions: Guidance Fluoroscopy 08/06/17 00:00 IMPRESSION: SUCCESSFUL PLACEMENT OF A 5 FR DUAL LUMEN 37 CM PICC IN THE LEFT BASILIC VEIN. Interventional Vascular Procedure 08/06/17 00:00 IMPRESSION: SUCCESSFUL PLACEMENT OF A 5 FR DUAL LUMEN 37 CM PICC IN THE LEFT BASILIC VEIN. PICC Line Insertion 08/06/17 00:00 IMPRESSION: SUCCESSFUL PLACEMENT OF A 5 FR DUAL LUMEN 37 CM PICC IN THE LEFT BASILIC VEIN. Assessment & Plan - Diagnosis (1) Cellulitis of toe of left foot Is this a current diagnosis for this admission?: Yes Plan: Appears improved; although continues to have nausea and vomiting, temperature of 101.4 overnight, and mild tachycardia. Circumferential edema and erythema to left great toe only. Three-view x-ray of left great toe (07/31/17): Negative study of left toe, no radiographic evidence of acute injury. Repeat blood cultures: NGTD MRSA screening negative Wound culture dated 08/06/17 should be disregarded as this was a culture of the intact blister; it had not began draining at this time. Repeat blood cultures (08/08/17) following fever are pending Wound culture collected by surgery dated 08/08/17 is pending Surgery was consulted; they have removed the surface of the blister and collected a wound culture of the wound bed. Conference call with infectious disease today; appreciate Dr. Rusty Fam's assistance. They recommend resuming IV Ancef until patient is capable of tolerating p.o. medications. (2) Nausea and vomiting Qualifiers: Vomiting type: unspecified Vomiting Intractability: non-intractable Qualified Code(s): R11.2 - Nausea with vomiting, unspecified Is this a current diagnosis for this admission?: Yes Plan: Persistent; possibly related to antibiotic. Benign abdomen, lipase is negative, positive bowel movements. Antiemetics as needed. (3) Type 1 diabetes mellitus Qualifiers: Diabetes mellitus complication status: with unspecified complications Qualified Code(s): E10.8 - Type 1 diabetes mellitus with unspecified complications Is this a current diagnosis for this admission?: Yes Plan: Consistent carb diet Accu-Cheks before meals and at bedtime with Humalog for sliding scale coverage. Lantus 50 units nightly. We will ask registered dietitian and patient educator to visit with the patient. - Time Time Spent with patient: 35 or more minutes Anticipated discharge: Home
--- NOTE | 2017-08-08 16:49 | OPERATIVE REPORT E ---
Operative Report NAME: ISSA BANEGAS : 1985 AGE: 32Y DATE OF SURGERY: 08/08/2017 ROOM: 206 PREOPERATIVE DIAGNOSIS: INFECTED LEFT BIG TOE WITH BLISTER FORMATION ABOUT 4 x 5 CM. POSTOPERATIVE DIAGNOSIS: INFECTED LEFT BIG TOE WITH BLISTER FORMATION ABOUT 4 x 5 CM. OPERATION: Debridement of skin over the left big toe blister site. SURGEON: SONIA HOUSTON M.D. INDICATION: This is a 32-year-old diabetic female who had her toes trimmed and manicured about a week ago. She then developed swelling and redness along the left big toe. She has diabetic neuropathy with decreased sensation along both feet. She has an area of blister that has partly drained. DESCRIPTION OF PROCEDURE: The patient was placed in the supine position at bedside and the left toe blister area cut sharply with scissors. There was a small amount of fluid that was sent for culture and sensitivity. The blister site roughly measured about 4 x 5 cm along the top part and the sides of the big toe. The toe itself appears to be slightly more swollen and red compared to the normal right foot. A lightly soaked saline 4x4 was placed over the wound and wrapped with Kerlix. She was advised to elevate the leg while in bed and continue on IV antibiotic therapy. I will change the wet-to-dry dressing in the morning and then do twice a day. She has good palpable dorsalis pedis artery pulse, but she is a juvenile diabetic since age 17 and has been using insulin since then. DICTATING PHYSICIAN: SONIA HOUSTON M.D. [id number] Y#: [id number] ID: [id number] JOB#: [id number] ACCT: [id number] cc:SONIA HOUSTON M.D. > MTDD
[2017-08-08] MEDS: LACTOBACILLUS ACIDOPHILUS 250 MG TAB PO SCH (19:19)
[2017-08-08] MEDS: CEFAZOLIN 1 GM/D5W RTU 1 GM/50 ML RTUPB IV SCH (22:27)
[2017-08-09] MEDS: HEPARIN SOD (PORCINE) 5,000 UNIT/ML 1 ML SYRINGE SUBCUT SCH ×4 (00:28→22:26)
[2017-08-09] MEDS: NORMAL SALINE 10 ML SDV (SCHEDULED) IV SCH ×3 (00:28→22:26)
[2017-08-09] MEDS: CEFAZOLIN 1 GM/D5W RTU 1 GM/50 ML RTUPB IV SCH (05:47)
[2017-08-09 06:39] LABS: HEMATOCRIT 24.5 % (36.0-47.0); MEAN CORPUSCULAR HEMOGLOBIN 20.2 pg (27.0-33.4); MEAN CORPUSCULAR HGB CONC 31.4 g/dL (32.0-36.0); MEAN CORPUSCULAR VOLUME 64 fl (80-97); PLATELET COUNT 423 10^3/uL (150-450); RED BLOOD COUNT 3.81 10^6/uL (3.72-5.28); RED CELL DISTRIBUTION WIDTH 17.3 % (11.5-14.0); WHITE BLOOD COUNT 12.7 10^3/uL (4.0-10.5)
[2017-08-09 06:46] LABS: ANION GAP 7 (5-19); BLOOD UREA NITROGEN 4 mg/dL (7-20); CALCIUM 8.1 mg/dL (8.4-10.2); CARBON DIOXIDE 31 mmol/L (22-30); CHLORIDE 101 mmol/L (98-107); GLUCOSE 305 mg/dL (75-110); POTASSIUM 4.2 mmol/L (3.6-5.0); SODIUM 138.7 mmol/L (137-145)
[2017-08-09] MEDS: INSULIN LISPRO 100 UNIT/ML 3 ML VIAL SUBCUT PRN ×4 (07:00→22:25)
[2017-08-09 07:27] LABS: HEMOGLOBIN 7.7 g/dL (12.0-15.5)
[2017-08-09] MEDS ORDERED: VANCOMYCIN HCL 0 MG in DEXTROSE 5%-WATER 250 ML IV NR (08:30)
[2017-08-09 08:53] LABS: HEMATOCRIT 22.1 % (36.0-47.0); MEAN CORPUSCULAR HEMOGLOBIN 19.6 pg (27.0-33.4); MEAN CORPUSCULAR HGB CONC 30.6 g/dL (32.0-36.0); MEAN CORPUSCULAR VOLUME 64 fl (80-97); PLATELET COUNT 376 10^3/uL (150-450); RED BLOOD COUNT 3.45 10^6/uL (3.72-5.28); RED CELL DISTRIBUTION WIDTH 17.2 % (11.5-14.0); WHITE BLOOD COUNT 12.8 10^3/uL (4.0-10.5)
[2017-08-09 09:13] LABS: HEMOGLOBIN 6.8 g/dL (12.0-15.5)
[2017-08-09] MEDS ORDERED: NORMAL SALINE 250 ML IV PRN ×2 (10:31)
[2017-08-09] MEDS: VANCOMYCIN HCL 750 MG in DEXTROSE 5%-WATER 250 ML IV SCH ×2 (11:14→22:26)
[2017-08-09] MEDS: LACTOBACILLUS ACIDOPHILUS 250 MG TAB PO SCH ×2 (11:14→17:36)
[2017-08-09] MEDS: PANTOPRAZOLE SODIUM 40 MG VIAL IV SCH ×2 (11:14→22:25)
--- NOTE | 2017-08-09 12:44 | RADIOLOGY REPORT (SQ) ---
EXAM DESCRIPTION: CT ABD/PELVIS WITH IV ONLY COMPLETED DATE/TIME: 08/09/2017 12:23 pm REASON FOR STUDY: nausea/vomiting; hgb drop ? bleed COMPARISON: CT abdomen and pelvis 07/04/2011, 06/02/2012, 03/03/2013, 07/28/2013 TECHNIQUE: CT scan of the abdomen and pelvis performed using helical scanning technique with dynamic intravenous contrast injection. No oral contrast. Images reviewed with lung, soft tissue, and bone windows. Reconstructed coronal and sagittal MPR images reviewed. Delayed images for evaluation of the urinary system also acquired. All images stored on PACS. All CT scanners at this facility use dose modulation, iterative reconstruction, and/or weight based d osing when appropriate to reduce radiation dose to as low as reasonably achievable (ALARA). [facility]: Dose Right [facility]: CareDose [facility]: Dose Right [facility]: Teradose 4D [facility]: Semantra CONTRAST TYPE AND DOSE: contrast/concentration: Isovue 370.00 mg/ml; Total Contrast Delivered: 72.0 ml; Total Saline Delivered: 66.0 ml RENAL FUNCTION: Creatinine 0.93 RADIATION DOSE: CT Rad equipment meets quality standard of care and radiation dose reduction techniq ues were employed. CTDIvol: 5.7 - 8.0 mGy. DLP: 889 mGy-cm.. LIMITATIONS: None. FINDINGS: LOWER CHEST: Small hiatal hernia. Lung bases are clear. LIVER: Normal size. No masses. No dilated ducts. SPLEEN: Normal size. No focal lesions. PANCREAS: No masses. No significant calcifications. No adjacent inflammation or peripancreatic fluid collections. Pancreatic duct not dilated. GALLBLADDER: No identified stones by CT criteria. No inflammatory changes to suggest cholecystitis. ADRENAL GLANDS: No significant masses or asymmetry. RIGHT KIDNEY AND URETER: No solid masses. No significant calcifications. No hydronephrosis or hyd roureter. LEFT KIDNEY AND URETER: No solid masses. No significant calcifications. No hydronephrosis or hydr oureter. AORTA AND VESSELS: No aneurysm. No dissection. Renal arteries, SMA, celiac without stenosis. RETROPERITONEUM: No retroperitoneal adenopathy, hemorrhage or masses. BOWEL AND PERITONEAL CAVITY: No masses or inflammatory changes. No free fluid or peritoneal masses. APPENDIX: Normal. PELVIS: No mass. Trace cul-de-sac free fluid. Bladder is distended, out of the pelvis up to almost the level of the umbilicus. ABDOMINAL WALL: No masses. No hernias. BONES: No significant or acute findings. OTHER: No other significant finding. IMPRESSION: Distended urinary bladder. Otherwise unremarkable study. TECHNICAL DOCUMENTATION: JOB ID: [id number] Quality ID # [id number]: Final reports with documentation of one or more dose reduction techniques (e.g., Au tomated exposure control, adjustment of the mA and/or kV according to patient size, use of iterative reconstruction technique) 2010 [employer]- All Rights Reserved Reading location - IP/workstation name: [email or web address]
[2017-08-09] MEDS ORDERED: DIPHENHYDRAMINE HCL 25 MG CAPSULE PO PRN (13:12)
[2017-08-09] MEDS ORDERED: ACETAMINOPHEN 325 MG TABLET PO PRN (13:12)
[2017-08-09] MEDS ORDERED: DIPHENHYDRAMINE HCL 25 MG CAPSULE ONE (13:59)
[2017-08-09] MEDS: ACETAMINOPHEN 325 MG TABLET PO PRN (14:09)
--- NOTE | 2017-08-09 14:52 | PDOC PROGRESS REPORT ---
Subjective Progress Note for:: 08/09/17 Subjective:: no pains left big toe Reason For Visit: LEFT FOOT CELLULITIS, DM 1 Physical Exam Vital Signs: Temp Pulse Resp BP Pulse Ox 98.3 F 88 16 126/83 H 100 08/09/17 14:41 08/09/17 14:41 08/09/17 14:41 08/09/17 14:41 08/09/17 14:41 Intake & Output 08/08/17 08/09/17 08/10/17 06:59 06:59 06:59 Intake Total 1090 600 0 Output Total 2 Balance 1088 600 0 Weight 67.4 kg General appearance: PRESENT: no acute distress Exam: left big toe inflammation appears to be improving.Continue wet to dry dressings BID Results Laboratory Results: 08/09/17 08:35 08/09/17 06:15 08/09/17 08/09/17 08/09/17 06:15 06:15 08:35 WBC 12.7 H 12.8 H RBC 3.81 3.45 L Hgb 7.7 L 6.8 L Hct 24.5 L 22.1 L MCV 64 L 64 L MCH 20.2 L 19.6 L MCHC 31.4 L 30.6 L RDW 17.3 H 17.2 H Plt Count 423 376 Sodium 138.7 Potassium 4.2 Chloride 101 Carbon Dioxide 31 H Anion Gap 7 BUN 4 L Creatinine 0.93 Est GFR ( Amer) > 60 Est GFR (Non-Af Amer) > 60 Glucose 305 H Calcium 8.1 L Blood Type Antibody Screen 08/09/17 08:35 WBC RBC Hgb Hct MCV MCH MCHC RDW Plt Count Sodium Potassium Chloride Carbon Dioxide Anion Gap BUN Creatinine Est GFR ( Amer) Est GFR (Non-Af Amer) Glucose Calcium Blood Type AB POSITIVE Antibody Screen NEGATIVE 08/06/17 15:05 Toe - Abscess Gram Stain - Final 08/06/17 15:05 Toe - Abscess Wound Culture - Final Mrsa (Meth Resis Staph Aureus) No Anaerobic Organisms Impressions: Guidance Fluoroscopy 08/06/17 00:00 IMPRESSION: SUCCESSFUL PLACEMENT OF A 5 FR DUAL LUMEN 37 CM PICC IN THE LEFT BASILIC VEIN. Interventional Vascular Procedure 08/06/17 00:00 IMPRESSION: SUCCESSFUL PLACEMENT OF A 5 FR DUAL LUMEN 37 CM PICC IN THE LEFT BASILIC VEIN. PICC Line Insertion 08/06/17 00:00 IMPRESSION: SUCCESSFUL PLACEMENT OF A 5 FR DUAL LUMEN 37 CM PICC IN THE LEFT BASILIC VEIN. Abdomen/Pelvis CT 08/09/17 00:00 IMPRESSION: Distended urinary bladder. Otherwise unremarkable study. Assessment & Plan - Time Time Spent with patient: 15-24 minutes - Inpatient Certification Medical Necessity: Need for IV Antibiotics - Plan Summary Plan Summary: Hb from 7.7 yesterday to 6.[address] abd/pelvis essentially normal. Suspect eqilibration from sepsis due to left big toe infection. Check stool hemoccult make sure no GI bleed. Needs IV antibiotics at least 48-72 hrs. Left big toe still with cellulitis but grossly improving. Definitely edema is less. WBC remains unchanged. Has neuropathy due to DM that's why difficult to asses status. OK to transfuse.
[2017-08-09] MEDS ORDERED: NORMAL SALINE 1000 ML 1,000 ML IV PRN (15:30)
--- NOTE | 2017-08-09 15:34 | PDOC PROGRESS REPORT ---
Subjective Progress Note for:: 08/09/17 Subjective:: The patient is a 32-year-old female with a history of type 1 diabetes mellitus who was admitted on 08/02/17 for worsening left foot cellulitis failing outpatient clindamycin. The patient is seen on morning rounds. She is found resting in the bedside recliner on room air. Received a call from the nursing staff stating that the patient was intermittently refusing care and was telling the nursing staff that she was planning to leave AMA. I discussed with the patient the importance of remaining to evaluate her drop in the hemoglobin and to provide blood transfusion as her hemoglobin is now 6.8. She was assured that her wound cultures had resulted and we now had identified the appropriate antibiotic to ensure that her cellulitis continued to improve. Despite this, the patient stated that she had been in the hospital to long and she had no intentions of staying any longer. I spoke with Dr. Abrams who graciously agreed to come and speak to the patient. After he met with her, she was agreeable to CT imaging of the abdomen and pelvis, providing a stool sample, receiving blood products, and continuing with IV antibiotics. Reason For Visit: LEFT FOOT CELLULITIS, DM 1 Physical Exam Vital Signs: Temp Pulse Resp BP Pulse Ox 98.3 F 88 16 126/83 H 100 08/09/17 14:41 08/09/17 14:41 08/09/17 14:41 08/09/17 14:41 08/09/17 14:41 Intake & Output 08/08/17 08/09/17 08/10/17 06:59 06:59 06:59 Intake Total 1090 600 0 Output Total 2 Balance 1088 600 0 Weight 67.4 kg General appearance: PRESENT: no acute distress, well-developed, well-nourished, other. ABSENT: cooperative - Overweight Head exam: PRESENT: atraumatic, normocephalic Eye exam: PRESENT: conjunctiva pink, EOMI, PERRLA. ABSENT: scleral icterus Ear exam: PRESENT: normal external ear exam Mouth exam: PRESENT: moist, tongue midline Neck exam: ABSENT: carotid bruit, JVD, lymphadenopathy, thyromegaly Respiratory exam: PRESENT: clear to auscultation dillan, symmetrical, unlabored. ABSENT: rales, rhonchi, wheezes Cardiovascular exam: PRESENT: RRR, +S1, +S2. ABSENT: diastolic murmur, rubs, systolic murmur Pulses: PRESENT: normal dorsalis pedis pul Vascular exam: PRESENT: normal capillary refill GI/Abdominal exam: PRESENT: normal bowel sounds, soft. ABSENT: distended, guarding, mass, organolmegaly, rebound, tenderness Rectal exam: PRESENT: deferred Extremities exam: PRESENT: full ROM. ABSENT: calf tenderness, clubbing, pedal edema Neurological exam: PRESENT: alert, awake, oriented to person, oriented to place , oriented to time, oriented to situation, CN II-XII grossly intact. ABSENT: motor sensory deficit Psychiatric exam: PRESENT: agitated, flat affect, normal mood. ABSENT: homicidal ideation, suicidal ideation Skin exam: PRESENT: dry, intact, warm. ABSENT: cyanosis, rash Results Laboratory Results: 08/09/17 08:35 08/09/17 06:15 08/09/17 08/09/17 08/09/17 06:15 06:15 08:35 WBC 12.7 H 12.8 H RBC 3.81 3.45 L Hgb 7.7 L 6.8 L Hct 24.5 L 22.1 L MCV 64 L 64 L MCH 20.2 L 19.6 L MCHC 31.4 L 30.6 L RDW 17.3 H 17.2 H Plt Count 423 376 Sodium 138.7 Potassium 4.2 Chloride 101 Carbon Dioxide 31 H Anion Gap 7 BUN 4 L Creatinine 0.93 Est GFR ( Amer) > 60 Est GFR (Non-Af Amer) > 60 Glucose 305 H Calcium 8.1 L Blood Type Antibody Screen 08/09/17 08:35 WBC RBC Hgb Hct MCV MCH MCHC RDW Plt Count Sodium Potassium Chloride Carbon Dioxide Anion Gap BUN Creatinine Est GFR ( Amer) Est GFR (Non-Af Amer) Glucose Calcium Blood Type AB POSITIVE Antibody Screen NEGATIVE 08/06/17 15:05 Toe - Abscess Gram Stain - Final 08/06/17 15:05 Toe - Abscess Wound Culture - Final Mrsa (Meth Resis Staph Aureus) No Anaerobic Organisms Impressions: Guidance Fluoroscopy 08/06/17 00:00 IMPRESSION: SUCCESSFUL PLACEMENT OF A 5 FR DUAL LUMEN 37 CM PICC IN THE LEFT BASILIC VEIN. Interventional Vascular Procedure 08/06/17 00:00 IMPRESSION: SUCCESSFUL PLACEMENT OF A 5 FR DUAL LUMEN 37 CM PICC IN THE LEFT BASILIC VEIN. PICC Line Insertion 08/06/17 00:00 IMPRESSION: SUCCESSFUL PLACEMENT OF A 5 FR DUAL LUMEN 37 CM PICC IN THE LEFT BASILIC VEIN. Abdomen/Pelvis CT 08/09/17 00:00 IMPRESSION: Distended urinary bladder. Otherwise unremarkable study. Assessment & Plan - Diagnosis (1) Cellulitis of toe of left foot Is this a current diagnosis for this admission?: Yes Plan: Appears improved; although continues to have intermitent nausea and vomiting, temperature of 100.3 overnight, and tachycardia. Three-view x-ray of left great toe (07/31/17): Negative study of left toe, no radiographic evidence of acute injury. Repeat blood cultures: NGTD Wound culture (08/06/17); despite this being a culture of intact skin over the posterior, it is positive for MRSA Repeat blood cultures (08/08/17) following fever: NGTD Wound culture collected by surgery (08/08/17): Gram-positive cocci Surgery was consulted; they have removed the surface of the blister and collected a wound culture of the wound bed. Infectious disease was consulted by telephone; appreciate their review of records and recommendations. As wound culture results show MRSA; will discontinue Ancef and begin pharmacy dosed vancomycin. Continue wound care as prescribed by surgery. (2) Nausea and vomiting Qualifiers: Vomiting type: unspecified Vomiting Intractability: non-intractable Qualified Code(s): R11.2 - Nausea with vomiting, unspecified Is this a current diagnosis for this admission?: Yes Plan: Persistent; possibly related to antibiotic. Benign abdomen, lipase is negative, positive bowel movements (per patient). CT of the abdomen and pelvis demonstrated a distended urinary bladder but otherwise was unremarkable. Antiemetics as needed. (3) Type 1 diabetes mellitus Qualifiers: Diabetes mellitus complication status: with unspecified complications Qualified Code(s): E10.8 - Type 1 diabetes mellitus with unspecified complications Is this a current diagnosis for this admission?: Yes Plan: Consistent carb diet Accu-Cheks before meals and at bedtime with Humalog for sliding scale coverage. Decrease Lantus to 10 units nightly as patient has been intermittently refusing high-dose Lantus secondary to poor p.o. intake. We will ask registered dietitian and patient educator to visit with the patient. (4) Anemia Is this a current diagnosis for this admission?: Yes Plan: Appears to be acute on chronic anemia. Chronic anemia possibly related to poor nutritional intake as the patient is noted to have uncontrolled diabetes and a low albumin. Upon admission hemoglobin is noted to be 10.1 and has gradually trended downward to 8.3 yesterday and 6.8 this morning. No obvious source of active bleeding. The patient was evaluated with a contrasted CT of the abdomen and pelvis; urinary or distention no other findings. Hemoccult and urinalysis are pending. The patient has been typed and crossed; she is ordered 2 units packed red blood cells. IV maintenance fluids; normal saline at 100ml/hr Monitor serial H&H every 8 hours (6) Urinary retention with incomplete bladder emptying Is this a current diagnosis for this admission?: Yes Plan: CT of the abdomen and pelvis today demonstrated urinary bladder distention to the level of the umbilicus. A post void bladder scan showed 435 mL's. Urinalysis is pending Bladder scan and in and out catheter for greater than 150 mL's ordered every 8 hours. The patient is placed on Flomax daily. Fortunately Dr. Abernathy is here today and so will consult urology. - Time Time Spent with patient: 25-34 minutes Medications reviewed and adjusted accordingly: Yes - Inpatient Certification Based on my medical assessment, after consideration of the patient's comorbidities, presenting symptoms, or acuity I expect that the services needed warrant INPATIENT care.: Yes I certify that my determination is in accordance with my understanding of Medicare's requirements for reasonable and necessary INPATIENT services [42 CFR 412.3e].: Yes Medical Necessity: Need Close Monitoring Due to Risk of Patient Decompensation, Need for IV Antibiotics
[2017-08-09] MEDS: TAMSULOSIN HCL 0.4 MG CAP.SR.24H PO SCH (17:36)
[2017-08-09] MEDS ORDERED: INSULIN GLARGINE,HUM.REC.ANLOG 300 UNIT/3 ML INSULN.PEN SUBCUT SCH (22:00)
[2017-08-09 22:31] LABS: ABSOLUTE BASOPHILS # (AUTO) 0.1 10^3/uL (0.0-0.2); ABSOLUTE EOSINOPHILS # (AUTO) 0.7 10^3/uL (0.0-0.6); ABSOLUTE LYMPHOCYTES (AUTO) 2.6 10^3/uL (0.5-4.7); ABSOLUTE MONOCYTES (AUTO) 0.9 10^3/uL (0.1-1.4); ABSOLUTE NEUT (AUTO) 7.4 10^3/uL (1.7-8.2); BASOPHILS % (AUTO) 0.5 % (0-2); EOSINOPHILS % (AUTO) 5.8 % (0-6); HEMATOCRIT 31.4 % (36.0-47.0); LYMPHOCYTES % (AUTO) 22.4 % (13-45); MEAN CORPUSCULAR HGB CONC 31.8 g/dL (32.0-36.0); PLATELET COUNT 379 10^3/uL (150-450); RED BLOOD COUNT 4.56 10^6/uL (3.72-5.28); RED CELL DISTRIBUTION WIDTH 21.4 % (11.5-14.0); SEGMENTED NEUTROPHILS % (AUTO) 63.3 % (42-78); TOTAL CELLS COUNTED % (AUTO) 100 %; WHITE BLOOD COUNT 11.7 10^3/uL (4.0-10.5)
[2017-08-09 22:35] LABS: MEAN CORPUSCULAR VOLUME 69 fl (80-97)
[2017-08-10 00:12] LABS: APPEARANCE,URINE CLEAR; BILIRUBIN,URINE NEGATIVE (NEGATIVE); COLOR,URINE YELLOW; GLUCOSE, URINE 150 mg/dL (NEGATIVE); KETONES,URINE NEGATIVE (NEGATIVE); LEUKOCYTE ESTERASE,URINE SMALL (NEGATIVE); NITRITE,URINE NEGATIVE (NEGATIVE); PROTEIN,URINE NEGATIVE (NEGATIVE); URINE SPECIFIC GRAVITY 1.013; UROBILINOGEN,URINE NEGATIVE mg/dL (<2.0)
[2017-08-10] MEDS: NORMAL SALINE 10 ML SDV (AFTER EACH USE) IV PRN ×2 (01:08→23:30)
[2017-08-10 04:19] LABS: HEMATOCRIT 31.8 % (36.0-47.0); MEAN CORPUSCULAR HEMOGLOBIN 21.8 pg (27.0-33.4); MEAN CORPUSCULAR HGB CONC 31.5 g/dL (32.0-36.0); MEAN CORPUSCULAR VOLUME 69 fl (80-97); PLATELET COUNT 371 10^3/uL (150-450); RED BLOOD COUNT 4.59 10^6/uL (3.72-5.28); RED CELL DISTRIBUTION WIDTH 21.8 % (11.5-14.0); WHITE BLOOD COUNT 11.6 10^3/uL (4.0-10.5)
[2017-08-10] MEDS: HEPARIN SOD (PORCINE) 5,000 UNIT/ML 1 ML SYRINGE SUBCUT SCH ×3 (05:04→23:01)
--- NOTE | 2017-08-10 09:12 | PDOC PROGRESS REPORT ---
Subjective Progress Note for:: 08/10/17 Reason For Visit: LEFT FOOT CELLULITIS, DM 1 Patient does not communicate unless asked specific questions. Physical Exam Vital Signs: Temp Pulse Resp BP Pulse Ox 99.4 F 89 18 141/87 H 100 08/10/17 07:44 08/10/17 07:44 08/10/17 07:44 08/10/17 07:44 08/10/17 07:44 Intake & Output 08/09/17 08/10/17 08/11/17 06:59 06:59 06:59 Intake Total 600 1450 Output Total 1450 Balance 600 0 Weight 67.4 kg General appearance: PRESENT: no acute distress Extremities exam: PRESENT: other - Left great toe dressing removed eschar at the base of the left great toenail; no cellulitis, drainage or foul smell. Results Laboratory Results: 08/10/17 04:05 08/09/17 06:15 08/09/17 08/09/17 08/09/17 08:35 08:35 22:05 WBC 12.8 H 11.7 H RBC 3.45 L 4.56 Hgb 6.8 L 10.0 L D Hct 22.1 L 31.4 L MCV 64 L 69 L D MCH 19.6 L 22.0 L MCHC 30.6 L 31.8 L RDW 17.2 H 21.4 H Plt Count 376 379 Seg Neutrophils % 63.3 Lymphocytes % 22.4 Monocytes % 8.0 Eosinophils % 5.8 Basophils % 0.5 Absolute Neutrophils 7.4 Absolute Lymphocytes 2.6 Absolute Monocytes 0.9 Absolute Eosinophils 0.7 H Absolute Basophils 0.1 Urine Color Urine Appearance Urine pH Ur Specific Silas Urine Protein Urine Glucose (UA) Urine Ketones Urine Blood Urine Nitrite Ur Leukocyte Esterase Urine WBC (Auto) Urine RBC (Auto) Blood Type AB POSITIVE Antibody Screen NEGATIVE 08/09/17 08/10/17 23:40 04:05 WBC 11.6 H RBC 4.59 Hgb 10.0 L Hct 31.8 L MCV 69 L MCH 21.8 L MCHC 31.5 L RDW 21.8 H Plt Count 371 Seg Neutrophils % Lymphocytes % Monocytes % Eosinophils % Basophils % Absolute Neutrophils Absolute Lymphocytes Absolute Monocytes Absolute Eosinophils Absolute Basophils Urine Color YELLOW Urine Appearance CLEAR Urine pH 7.0 Ur Specific Silas 1.013 Urine Protein NEGATIVE Urine Glucose (UA) 150 H Urine Ketones NEGATIVE Urine Blood NEGATIVE Urine Nitrite NEGATIVE Ur Leukocyte Esterase SMALL H Urine WBC (Auto) 9 Urine RBC (Auto) 4 Blood Type Antibody Screen 08/06/17 15:05 Toe - Abscess Gram Stain - Final 08/06/17 15:05 Toe - Abscess Wound Culture - Final Mrsa (Meth Resis Staph Aureus) No Anaerobic Organisms Impressions: Guidance Fluoroscopy 08/06/17 00:00 IMPRESSION: SUCCESSFUL PLACEMENT OF A 5 FR DUAL LUMEN 37 CM PICC IN THE LEFT BASILIC VEIN. Interventional Vascular Procedure 08/06/17 00:00 IMPRESSION: SUCCESSFUL PLACEMENT OF A 5 FR DUAL LUMEN 37 CM PICC IN THE LEFT BASILIC VEIN. PICC Line Insertion 08/06/17 00:00 IMPRESSION: SUCCESSFUL PLACEMENT OF A 5 FR DUAL LUMEN 37 CM PICC IN THE LEFT BASILIC VEIN. Abdomen/Pelvis CT 08/09/17 00:00 IMPRESSION: Distended urinary bladder. Otherwise unremarkable study. Assessment & Plan - Diagnosis (1) Cellulitis of left foot Is this a current diagnosis for this admission?: Yes Plan: Status post a debridement left great toe of skin; wound moving in appropriate direction; no indication for additional debridement at this time. Recommendations: 1. Continue intravenous antibiotics and switch to p.o. antibiotics 2. Dressing changes will consist of Xeroform, dry gauze. 3. Patient can follow-up with primary care provider is discharged home from hospital; reconsult surgical team if needed
[2017-08-10] MEDS: LACTOBACILLUS ACIDOPHILUS 250 MG TAB PO SCH ×2 (09:20→17:46)
[2017-08-10] MEDS: INSULIN LISPRO 100 UNIT/ML 3 ML VIAL SUBCUT PRN ×4 (09:21→23:22)
[2017-08-10] MEDS: PANTOPRAZOLE SODIUM 40 MG VIAL IV SCH ×2 (09:21→23:01)
[2017-08-10] MEDS: NORMAL SALINE 10 ML SDV (SCHEDULED) IV SCH ×2 (09:22→23:01)
[2017-08-10] MEDS: VANCOMYCIN HCL 750 MG in DEXTROSE 5%-WATER 250 ML IV SCH ×2 (11:21→23:29)
--- NOTE | 2017-08-10 12:26 | PDOC PROGRESS REPORT ---
Subjective Progress Note for:: 08/10/17 Subjective:: The patient is a 32-year-old female with a history of type 1 diabetes mellitus who was admitted on 08/02/17 for worsening left foot cellulitis failing outpatient clindamycin. The patient is seen on morning rounds. She is found resting in the bedside recliner on room air. She states that she is feeling much better today. She denies abdominal pain, nausea, vomiting, diarrhea, constipation, melena/ hematochezia. She states that she was able to eat a regular diet this morning without difficulty. She reports that she is having adequate voids and does not have discomfort related to full bladder. She denies urinary urgency, frequency, dysuria, flank pain she was seen by surgery this morning and the dressing was removed; she is encouraged by the appearance of her toe. She has no new questions or concerns.. Reason For Visit: LEFT FOOT CELLULITIS, DM 1 Physical Exam Vital Signs: Temp Pulse Resp BP Pulse Ox 99.4 F 89 18 141/87 H 100 08/10/17 07:44 08/10/17 07:44 08/10/17 07:44 08/10/17 07:44 08/10/17 07:44 Intake & Output 08/09/17 08/10/17 08/11/17 06:59 06:59 06:59 Intake Total 600 1450 Output Total 1450 Balance 600 0 Weight 67.4 kg General appearance: PRESENT: no acute distress, well-developed, well-nourished, other - Overweight Head exam: PRESENT: atraumatic, normocephalic Eye exam: PRESENT: conjunctiva pink, EOMI, PERRLA. ABSENT: scleral icterus Ear exam: PRESENT: normal external ear exam Mouth exam: PRESENT: moist, tongue midline Neck exam: ABSENT: carotid bruit, JVD, lymphadenopathy, thyromegaly Respiratory exam: PRESENT: clear to auscultation dillan. ABSENT: rales, rhonchi, wheezes Cardiovascular exam: PRESENT: RRR. ABSENT: diastolic murmur, rubs, systolic murmur Pulses: PRESENT: normal dorsalis pedis pul Vascular exam: PRESENT: normal capillary refill GI/Abdominal exam: PRESENT: normal bowel sounds, soft. ABSENT: distended, guarding, mass, organolmegaly, rebound, tenderness Rectal exam: PRESENT: deferred Extremities exam: PRESENT: full ROM. ABSENT: calf tenderness, clubbing, pedal edema Neurological exam: PRESENT: alert, awake, oriented to person, oriented to place , oriented to time, oriented to situation, CN II-XII grossly intact. ABSENT: motor sensory deficit Psychiatric exam: PRESENT: flat affect, normal mood. ABSENT: homicidal ideation , suicidal ideation Skin exam: PRESENT: dry, warm. ABSENT: cyanosis, intact - Surface of blister previously removed by surgery; wound bed is dry. No surrounding erythema or edema. No active bleeding or drainage. Much improved., rash Results Laboratory Results: 08/10/17 04:05 08/09/17 06:15 08/09/17 08/09/17 08/09/17 08:35 22:05 23:40 WBC 11.7 H RBC 4.56 Hgb 10.0 L D Hct 31.4 L MCV 69 L D MCH 22.0 L MCHC 31.8 L RDW 21.4 H Plt Count 379 Seg Neutrophils % 63.3 Lymphocytes % 22.4 Monocytes % 8.0 Eosinophils % 5.8 Basophils % 0.5 Absolute Neutrophils 7.4 Absolute Lymphocytes 2.6 Absolute Monocytes 0.9 Absolute Eosinophils 0.7 H Absolute Basophils 0.1 Urine Color YELLOW Urine Appearance CLEAR Urine pH 7.0 Ur Specific Morgan 1.013 Urine Protein NEGATIVE Urine Glucose (UA) 150 H Urine Ketones NEGATIVE Urine Blood NEGATIVE Urine Nitrite NEGATIVE Ur Leukocyte Esterase SMALL H Urine WBC (Auto) 9 Urine RBC (Auto) 4 Blood Type AB POSITIVE Antibody Screen NEGATIVE 08/10/17 04:05 WBC 11.6 H RBC 4.59 Hgb 10.0 L Hct 31.8 L MCV 69 L MCH 21.8 L MCHC 31.5 L RDW 21.8 H Plt Count 371 Seg Neutrophils % Lymphocytes % Monocytes % Eosinophils % Basophils % Absolute Neutrophils Absolute Lymphocytes Absolute Monocytes Absolute Eosinophils Absolute Basophils Urine Color Urine Appearance Urine pH Ur Specific Morgan Urine Protein Urine Glucose (UA) Urine Ketones Urine Blood Urine Nitrite Ur Leukocyte Esterase Urine WBC (Auto) Urine RBC (Auto) Blood Type Antibody Screen 08/06/17 15:05 Toe - Abscess Gram Stain - Final 08/06/17 15:05 Toe - Abscess Wound Culture - Final Mrsa (Meth Resis Staph Aureus) No Anaerobic Organisms Impressions: Guidance Fluoroscopy 08/06/17 00:00 IMPRESSION: SUCCESSFUL PLACEMENT OF A 5 FR DUAL LUMEN 37 CM PICC IN THE LEFT BASILIC VEIN. Interventional Vascular Procedure 08/06/17 00:00 IMPRESSION: SUCCESSFUL PLACEMENT OF A 5 FR DUAL LUMEN 37 CM PICC IN THE LEFT BASILIC VEIN. PICC Line Insertion 08/06/17 00:00 IMPRESSION: SUCCESSFUL PLACEMENT OF A 5 FR DUAL LUMEN 37 CM PICC IN THE LEFT BASILIC VEIN. Abdomen/Pelvis CT 08/09/17 00:00 IMPRESSION: Distended urinary bladder. Otherwise unremarkable study. Assessment & Plan - Diagnosis (1) Cellulitis of toe of left foot Is this a current diagnosis for this admission?: Yes Plan: Much improved. Three-view x-ray of left great toe (07/31/17): Negative study of left toe, no radiographic evidence of acute injury. Repeat blood cultures: NGTD Wound culture (08/06/17); despite this being a culture of intact skin over the posterior, it is positive for MRSA Repeat blood cultures (08/08/17) following fever: NGTD Wound culture collected by surgery (08/08/17): MRSA with same resistance pattern as previous culture. Surgery has been consulted. Infectious disease was consulted by telephone; appreciate their review of records and recommendations. As wound culture results show MRSA; continue vancomycin. Continue wound care as prescribed by surgery. (2) Nausea and vomiting Qualifiers: Vomiting type: unspecified Vomiting Intractability: non-intractable Qualified Code(s): R11.2 - Nausea with vomiting, unspecified Is this a current diagnosis for this admission?: Yes Plan: Resolved; pt tolerated regular diet today. Benign abdomen, lipase is negative, positive bowel movements (per patient). CT of the abdomen and pelvis demonstrated a distended urinary bladder but otherwise was unremarkable. Antiemetics as needed. (3) Type 1 diabetes mellitus Qualifiers: Diabetes mellitus complication status: with unspecified complications Qualified Code(s): E10.8 - Type 1 diabetes mellitus with unspecified complications Is this a current diagnosis for this admission?: Yes Plan: Consistent carb diet. Accu-Cheks before meals and at bedtime with Humalog for sliding scale coverage. Will increase Lantus to 20 units as patient is now tolerating regular diet. ( Home does is 55 units daily) We will ask registered dietitian and patient educator to visit with the patient. (4) Anemia Is this a current diagnosis for this admission?: Yes Plan: Appears to be acute on chronic anemia. Chronic anemia possibly related to poor nutritional intake as the patient is noted to have uncontrolled diabetes and a low albumin. No obvious source of active bleeding. CT of the abdomen and pelvis; urinary or distention no other findings. Hemoccult and urinalysis are pending. Pt is now s/p 2 units PRBC. Hgb appears stable at 10. IV maintenance fluids; normal saline at 100ml/hr Will continue to trend Hgb and transfuse as necessary. (5) Urinary retention with incomplete bladder emptying Is this a current diagnosis for this admission?: Yes Plan: CT of the abdomen and pelvis today demonstrated urinary bladder distention to the level of the umbilicus. A post void bladder scan showed 435 mL's. Urinalysis is benign. The patient is placed on Flomax daily. Continue to monitor urinary output. Fortunately Dr. Abernathy is here today and so will consult urology. - Time Time Spent with patient: 15-24 minutes Medications reviewed and adjusted accordingly: Yes Anticipated discharge: Home Within: within 72 hours
[2017-08-10 16:57] LABS: HEMATOCRIT 33.1 % (36.0-47.0); HEMOGLOBIN 10.5 g/dL (12.0-15.5); MEAN CORPUSCULAR HGB CONC 31.7 g/dL (32.0-36.0); MEAN CORPUSCULAR VOLUME 69 fl (80-97); PLATELET COUNT 425 10^3/uL (150-450); RED BLOOD COUNT 4.78 10^6/uL (3.72-5.28); RED CELL DISTRIBUTION WIDTH 21.7 % (11.5-14.0); WHITE BLOOD COUNT 13.4 10^3/uL (4.0-10.5)
[2017-08-10] MEDS: TAMSULOSIN HCL 0.4 MG CAP.SR.24H PO SCH (17:46)
[2017-08-10] MEDS: INSULIN GLARGINE,HUM.REC.ANLOG 300 UNIT/3 ML INSULN.PEN SUBCUT SCH (22:59)
[2017-08-11 00:24] LABS: VANCOMYCIN,TROUGH 10.4 ug/mL (5.0-20.0)
[2017-08-11] MEDS: NORMAL SALINE 10 ML SDV (AFTER EACH USE) IV PRN ×2 (03:26→06:27)
[2017-08-11] MEDS: HEPARIN SOD (PORCINE) 5,000 UNIT/ML 1 ML SYRINGE SUBCUT SCH ×3 (06:27→21:46)
[2017-08-11 06:57] LABS: HEMATOCRIT 31.6 % (36.0-47.0); HEMOGLOBIN 10.2 g/dL (12.0-15.5); MEAN CORPUSCULAR HEMOGLOBIN 22.1 pg (27.0-33.4); MEAN CORPUSCULAR HGB CONC 32.2 g/dL (32.0-36.0); MEAN CORPUSCULAR VOLUME 69 fl (80-97); PLATELET COUNT 395 10^3/uL (150-450); RED CELL DISTRIBUTION WIDTH 22.2 % (11.5-14.0); WHITE BLOOD COUNT 12.1 10^3/uL (4.0-10.5)
[2017-08-11 07:04] LABS: BLOOD UREA NITROGEN 4 mg/dL (7-20); CALCIUM 8.9 mg/dL (8.4-10.2); GLUCOSE 150 mg/dL (75-110); POTASSIUM 3.8 mmol/L (3.6-5.0)
[2017-08-11 07:09] LABS: ANION GAP 5 (5-19); CARBON DIOXIDE 36 mmol/L (22-30); CHLORIDE 101 mmol/L (98-107); SODIUM 141.9 mmol/L (137-145)
[2017-08-11] MEDS: LACTOBACILLUS ACIDOPHILUS 250 MG TAB PO SCH ×2 (10:37→17:27)
[2017-08-11] MEDS: PANTOPRAZOLE SODIUM 40 MG VIAL IV SCH ×2 (10:37→21:45)
[2017-08-11] MEDS: NORMAL SALINE 10 ML SDV (SCHEDULED) IV SCH ×2 (10:39→21:46)
[2017-08-11] MEDS ORDERED: VANCOMYCIN HCL 1,000 MG in DEXTROSE 5%-WATER 250 ML IV SCH (11:00)
--- NOTE | 2017-08-11 11:24 | PDOC PROGRESS REPORT ---
Subjective Progress Note for:: 08/11/17 Subjective:: The patient is a 32-year-old female with a history of type 1 diabetes mellitus who was admitted on 08/02/17 for worsening left foot cellulitis failing outpatient clindamycin. The patient is seen on morning rounds. She is found resting in bed on room air. She continues to have a flat affect and does not fully participate in conversation. She again tells me she intends to go home AGAINST MEDICAL ADVICE today. She states that she ate all of her breakfast. She denies abdominal pain, nausea , vomiting, diarrhea. She states that she has no pain to her toe. She refuses to respond to any further questions and pulled the blanket over her head. Reason For Visit: LEFT FOOT CELLULITIS, DM 1 Physical Exam Vital Signs: Temp Pulse Resp BP Pulse Ox 98.7 F 92 16 126/82 H 100 08/11/17 07:28 08/11/17 07:28 08/11/17 07:28 08/11/17 07:28 08/11/17 07:28 Intake & Output 08/10/17 08/11/17 08/12/17 06:59 06:59 06:59 Intake Total 1850 500 700 Output Total 8565 876 4623 Balance 400 -300 -300 Weight 65.6 kg General appearance: PRESENT: no acute distress, well-developed, well-nourished, other - Overweight Head exam: PRESENT: atraumatic, normocephalic Eye exam: PRESENT: conjunctiva pink, EOMI, PERRLA. ABSENT: scleral icterus Ear exam: PRESENT: normal external ear exam Mouth exam: PRESENT: moist, tongue midline Neck exam: ABSENT: carotid bruit, JVD, lymphadenopathy, thyromegaly Respiratory exam: PRESENT: clear to auscultation dillan. ABSENT: rales, rhonchi, wheezes Cardiovascular exam: PRESENT: RRR. ABSENT: diastolic murmur, rubs, systolic murmur Pulses: PRESENT: normal dorsalis pedis pul Vascular exam: PRESENT: normal capillary refill GI/Abdominal exam: PRESENT: normal bowel sounds, soft. ABSENT: distended, guarding, mass, organolmegaly, rebound, tenderness Rectal exam: PRESENT: deferred Extremities exam: PRESENT: full ROM. ABSENT: calf tenderness, clubbing, pedal edema Neurological exam: PRESENT: alert, awake, oriented to person, oriented to place , oriented to time, oriented to situation, CN II-XII grossly intact. ABSENT: motor sensory deficit Psychiatric exam: PRESENT: appropriate affect, flat affect, normal mood. ABSENT : homicidal ideation, suicidal ideation Skin exam: PRESENT: dry, warm. ABSENT: cyanosis, intact - Slight erythema to the dorsal aspect of the left great toe. No surrounding erythema or edema. The wound bed is macerated. No active bleeding or drainage at this time., rash Results Laboratory Results: 08/11/17 06:32 08/11/17 06:32 08/10/17 08/10/17 08/11/17 16:35 23:50 06:32 WBC 13.4 H RBC 4.78 Hgb 10.5 L Hct 33.1 L MCV 69 L MCH 22.0 L MCHC 31.7 L RDW 21.7 H Plt Count 425 Sodium 141.9 Potassium 3.8 Chloride 101 Carbon Dioxide 36 H Anion Gap 5 BUN 4 L Creatinine 0.89 0.87 Est GFR ( Amer) > 60 > 60 Est GFR (Non-Af Amer) > 60 > 60 Glucose 150 H Calcium 8.9 08/11/17 06:32 WBC 12.1 H RBC 4.60 Hgb 10.2 L Hct 31.6 L MCV 69 L MCH 22.1 L MCHC 32.2 RDW 22.2 H Plt Count 395 Sodium Potassium Chloride Carbon Dioxide Anion Gap BUN Creatinine Est GFR ( Amer) Est GFR (Non-Af Amer) Glucose Calcium 08/08/17 15:00 Toe - Left Big Toe Gram Stain - Final 08/08/17 15:00 Toe - Left Big Toe Wound Culture - Final Mrsa (Meth Resis Staph Aureus) Impressions: Guidance Fluoroscopy 08/06/17 00:00 IMPRESSION: SUCCESSFUL PLACEMENT OF A 5 FR DUAL LUMEN 37 CM PICC IN THE LEFT BASILIC VEIN. Interventional Vascular Procedure 08/06/17 00:00 IMPRESSION: SUCCESSFUL PLACEMENT OF A 5 FR DUAL LUMEN 37 CM PICC IN THE LEFT BASILIC VEIN. PICC Line Insertion 08/06/17 00:00 IMPRESSION: SUCCESSFUL PLACEMENT OF A 5 FR DUAL LUMEN 37 CM PICC IN THE LEFT BASILIC VEIN. Abdomen/Pelvis CT 08/09/17 00:00 IMPRESSION: Distended urinary bladder. Otherwise unremarkable study. Assessment & Plan - Diagnosis (1) Cellulitis of toe of left foot Is this a current diagnosis for this admission?: Yes Plan: Continues to improve. Three-view x-ray of left great toe (07/31/17): Negative study of left toe, no radiographic evidence of acute injury. Repeat blood cultures: NGTD Wound culture (08/06/17); despite this being a culture of intact skin over the posterior, it is positive for MRSA Repeat blood cultures (08/08/17) following fever: NGTD Wound culture collected by surgery (08/08/17): MRSA with same resistance pattern as previous culture. The patient was initially treated as an outpatient with p.o. clindamycin but returned the following day for worsening erythema. I do not believe that this was a treatment failure, rather the patient did not receive enough of the antibiotic as sensitivities do show clindamycin was appropriate. She was initially placed on vancomycin and Zosyn. Infectious disease was then consulted with recommendations to be changed to Ancef. Following wound culture results demonstrated MRSA resistant to Ancef, the patient was returned to vancomycin. However, now that sensitivities are back it is noted that the BRENDA is 2. As the patient is repeatedly stating that she plans to go AMA, instead of changing to an alternate IV antibiotic or adding rifampin, I will place the patient on p.o. Bactrim (also sensitive). Hopefully the patient will demonstrate continued improvement overnight and she can be discharged tomorrow morning. Surgery was consulted, they have now signed off, do appreciate their assistance. Infectious disease has been consulted; appreciate their assistance. (2) Nausea and vomiting Qualifiers: Vomiting type: unspecified Vomiting Intractability: non-intractable Qualified Code(s): R11.2 - Nausea with vomiting, unspecified Is this a current diagnosis for this admission?: Yes Plan: Resolved; pt tolerated regular diet today. Benign abdomen, lipase is negative, positive bowel movements (per patient). CT of the abdomen and pelvis demonstrated a distended urinary bladder but otherwise was unremarkable. Antiemetics as needed. (3) Type 1 diabetes mellitus Qualifiers: Diabetes mellitus complication status: with unspecified complications Qualified Code(s): E10.8 - Type 1 diabetes mellitus with unspecified complications Is this a current diagnosis for this admission?: Yes Plan: Consistent carb diet. Accu-Cheks before meals and at bedtime with Humalog for sliding scale coverage. Improved following increase of Lantus to 20 units. (Home does is 55 units daily ) We will ask registered dietitian and patient educator to visit with the patient. (4) Anemia Is this a current diagnosis for this admission?: Yes Plan: Appears to be acute on chronic anemia. Chronic anemia possibly related to poor nutritional intake as the patient is noted to have uncontrolled diabetes and a low albumin. No obvious source of active bleeding. CT of the abdomen and pelvis; urinary or distention no other findings. Hemoccult and urinalysis are pending. Pt is now s/p 2 units PRBC. Hgb is stable at 10. We will discontinue IV maintenance fluids today in anticipation of early discharge tomorrow morning. Will continue to trend Hgb and transfuse as necessary. (5) Urinary retention with incomplete bladder emptying Is this a current diagnosis for this admission?: Yes Plan: CT of the abdomen and pelvis demonstrated urinary bladder distention to the level of the umbilicus. A post void bladder scan showed 435 mL's. Urinalysis is benign. The patient is placed on Flomax daily. Currently with adequate urinary output. Continue to monitor urinary output. - Time Medications reviewed and adjusted accordingly: Yes Anticipated discharge: Home Within: within 24 hours
[2017-08-11] MEDS: AMOXICILLIN TR/POT CLAVULANATE 500-125 MG TAB PO SCH ×2 (13:30→21:55)
[2017-08-11] MEDS: INSULIN LISPRO 100 UNIT/ML 3 ML VIAL SUBCUT PRN ×2 (13:47→21:46)
[2017-08-11] MEDS: TAMSULOSIN HCL 0.4 MG CAP.SR.24H PO SCH (17:27)
[2017-08-11] MEDS: ACETAMINOPHEN 325 MG TABLET PO PRN (20:13)
[2017-08-11] MEDS: INSULIN GLARGINE,HUM.REC.ANLOG 300 UNIT/3 ML INSULN.PEN SUBCUT SCH (21:46)
[2017-08-12] MEDS: ACETAMINOPHEN 325 MG TABLET PO PRN (02:24)
[2017-08-12] MEDS: NORMAL SALINE 10 ML SDV (AFTER EACH USE) IV PRN (05:41)
[2017-08-12] MEDS: HEPARIN SOD (PORCINE) 5,000 UNIT/ML 1 ML SYRINGE SUBCUT SCH (05:41)
[2017-08-12] MEDS: AMOXICILLIN TR/POT CLAVULANATE 500-125 MG TAB PO SCH (05:41)
[2017-08-12 06:05] LABS: HEMATOCRIT 31.4 % (36.0-47.0); MEAN CORPUSCULAR HEMOGLOBIN 21.8 pg (27.0-33.4); MEAN CORPUSCULAR HGB CONC 31.6 g/dL (32.0-36.0); MEAN CORPUSCULAR VOLUME 69 fl (80-97); PLATELET COUNT 398 10^3/uL (150-450); RED BLOOD COUNT 4.57 10^6/uL (3.72-5.28); RED CELL DISTRIBUTION WIDTH 23.1 % (11.5-14.0)
[2017-08-12 09:23] VITALS: BP 135/85
[2017-08-12] MEDS: LACTOBACILLUS ACIDOPHILUS 250 MG TAB PO SCH (09:46)
[2017-08-12] MEDS: NORMAL SALINE 10 ML SDV (SCHEDULED) IV SCH (10:14)
[2017-08-12] MEDS ORDERED: SULFAMETHOXAZOLE/TRIMETHOPRIM 800-160 MG TABLET PO ONE (11:00)
[2017-08-12] MEDS ORDERED: SULFAMETHOXAZOLE/TRIMETHOPRIM 800-160 MG TABLET PO SCH (22:00)
--- NOTE | 2017-08-23 21:45 | PDOC DISCHARGE SUMMARY ---
General - Admit/Disc Date/PCP Admission Date/Primary Care Provider: 08/02/17 23:59 Discharge Date: 08/23/17 - Discharge Diagnosis (1) Cellulitis of toe of left foot Is this a current diagnosis for this admission?: Yes Summary: Significant improvement. Evaluation included: Three-view x-ray of left great toe (07/31/17): Negative study of left toe, no radiographic evidence of acute injury. Repeat blood cultures: NGTD Wound culture (08/06/17); despite this being a culture of intact skin over the posterior, it is positive for MRSA Repeat blood cultures (08/08/17) following fever: NGTD Wound culture collected by surgery (08/08/17): MRSA with same resistance pattern as previous culture. The surgical team was consulted and did not feel that surgical interventions were indicated. The patient was initially treated as an outpatient with p.o. clindamycin but returned the following day for worsening erythema. I do not believe that this was a treatment failure, rather the patient did not receive enough of the antibiotic as sensitivities do show clindamycin was appropriate. She was initially placed on vancomycin and Zosyn. Infectious disease was then consulted with recommendations to be changed to Ancef. Following wound culture results demonstrated MRSA resistant to Ancef, the patient was returned to vancomycin. However, now that sensitivities are back it is noted that the BRENDA is 2. As the patient is repeatedly stated that she planned to go AMA, instead of changing to an alternate IV antibiotic or adding rifampin, she was placed the patient on p.o. Bactrim (also sensitive). Fortunately, the patient demonstrate continued improvement overnight and she was discharged the following day. (2) Nausea and vomiting Is this a current diagnosis for this admission?: Yes Summary: Secondary to acute illness; now resolved. Lipase is normal. CT ABD/Plevis was evaluated; urinary bladder was noted to be distended but otherwise was unremarkable. At time of discharge, the patient's symptoms had entirely resolved and she was tolerating a consistent carb diet. (3) Type 1 diabetes mellitus Is this a current diagnosis for this admission?: Yes Summary: Managed with Levemir and Humalog for sliding scale coverage. (4) Anemia Is this a current diagnosis for this admission?: Yes Summary: Acute on chronic anemia; likely related to poor nutritional intake in patient with uncontrolled diabetes and low albumin. No obvious source of bleeding was identified. Urinalysis was negative. CT ABD/Pelvis: urinary bladder distention but no acute bleeding. Pt reported occasional bowel movements without melena or hematochezia but refused to provide samples for occult stool. BUN was actually low, 4. Low suspicion of GI bleeding. The patient was provided 2 units of PRBC. Hgb stable at 10. Recommend close follow up by primary care provider. (5) Urinary retention with incomplete bladder emptying Is this a current diagnosis for this admission?: Yes Summary: Pt reported nausea and vomiting but denied abdominal pain or difficulty voiding. Urinalysis was negative for UTI. She was noted to have a significantly distended bladder on CT ABD/Pelvis. Post- void bladder scan demonstrated 435 ml. Pt was placed on flomax and was encouraged to attempt scheduled voids. Symptoms improved and the patient was no longer noted to have post-void residuals. She was provided a prescription for flomax and encouraged to discuss urinary retention symptoms with primary care provider at follow up visit; pt may benefit from urology and/or uro-gynecology evaluation. - Additional Information Discharge Diet: Diabetic Discharge Activity: Activity As Tolerated, Walk Frequently Prescriptions: Lactobacillus Acidophilus [Bacid 250 mg Tablet] 250 mg PO BID #60 tab Sulfamethoxazole/Trimethoprim [Bactrim Ds Tablet] 1 each PO BID #28 tablet Home Medications: Insulin Glargine,Hum.rec.anlog [Lantus Insulin 100 Unit/mL] 55 units SUBCUT QHS 07/31/17 Acetaminophen [Tylenol 325 mg Tablet] 650 mg PO Q4HP PRN tablet 08/12/17 Lactobacillus Acidophilus [Bacid 250 mg Tablet] 250 mg PO BID #60 tab 08/12/17 Sulfamethoxazole/Trimethoprim [Bactrim Ds Tablet] 1 each PO BID #28 tablet 08/12 Ondansetron [Zofran Odt 4 mg Tablet] 1 - 2 tab PO Q4H PRN #15 tab.rapdis Promethazine HCl [Phenergan 25 mg Tablet] 25 mg PO Q6H PRN #12 tablet 08/23/17 History of Present Illness History of Present Illness: Per H&P by Dr. Marino: ISSA BANEGAS is a 32 year old female with history of type 1 diabetes mellitus was admitted with above-mentioned complaint. The patient was seen in the ED on 07/31/2017 and was diagnosed with paronychia of her left big toe after pedicure about a week ago. She said that she started noticing increased swelling of her left big toe with some leakage from the nailbed few days later. She was offered admission to receive IV antibiotics and have her blood sugar better controlled but the patient wanted to try oral medications instead. She was discharged on Clinda. According to the patient, she received IV antibiotics while in the ED but I cannot find what she has been given. 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 And later in the evening, she noticed that her left foot was more swollen and painful and that the erythema started spreading beyond her ankle but she denied any fever or chills. She also had a blister on her left big toe. In the ED, she was hemodynamically stable. Her WBC was 10.2 and her blood sugar was 387 with anion gap of 12. Lactic acid was 1.1. An x-ray of her left foot was done on 07/31/2017 which was negative for any acute findings. She received 1 g of vancomycin x1 and 3.375 mg IV Zosyn 1. Physical Exam Vital Signs: Temp Pulse Resp BP Pulse Ox 98.5 F 89 16 135/85 H 99 08/12/17 09:21 08/12/17 09:21 08/12/17 09:21 08/12/17 09:21 08/12/17 09:21 General appearance: PRESENT: no acute distress, well-developed, well-nourished Head exam: PRESENT: atraumatic, normocephalic Eye exam: PRESENT: conjunctiva pink, EOMI, PERRLA. ABSENT: scleral icterus Ear exam: PRESENT: normal external ear exam Mouth exam: PRESENT: moist, tongue midline Neck exam: ABSENT: carotid bruit, JVD, lymphadenopathy, thyromegaly Respiratory exam: PRESENT: clear to auscultation dillan, symmetrical, unlabored. ABSENT: rales, rhonchi, wheezes Cardiovascular exam: PRESENT: RRR, +S1, +S2. ABSENT: diastolic murmur, rubs, systolic murmur Pulses: PRESENT: normal dorsalis pedis pul Vascular exam: PRESENT: normal capillary refill GI/Abdominal exam: PRESENT: normal bowel sounds, soft. ABSENT: distended, guarding, mass, organolmegaly, rebound, tenderness Rectal exam: PRESENT: deferred Extremities exam: PRESENT: full ROM. ABSENT: calf tenderness, clubbing, pedal edema Neurological exam: PRESENT: alert, awake, oriented to person, oriented to place , oriented to time, oriented to situation, CN II-XII grossly intact. ABSENT: motor sensory deficit Psychiatric exam: PRESENT: flat affect, normal mood, other - withdrawan. ABSENT : homicidal ideation, suicidal ideation Skin exam: PRESENT: dry, warm. ABSENT: cyanosis, intact - Wound to lt great toe is much improved; erythema and edema have resolved. Wound bed is dry, early evidence of granulation tissue. No bleeding, drainage, or slough present. , rash Results Laboratory Results: 08/12/17 05:45 08/11/17 06:32 Impressions: Guidance Fluoroscopy 08/06/17 00:00 IMPRESSION: SUCCESSFUL PLACEMENT OF A 5 FR DUAL LUMEN 37 CM PICC IN THE LEFT BASILIC VEIN. Interventional Vascular Procedure 08/06/17 00:00 IMPRESSION: SUCCESSFUL PLACEMENT OF A 5 FR DUAL LUMEN 37 CM PICC IN THE LEFT BASILIC VEIN. PICC Line Insertion 08/06/17 00:00 IMPRESSION: SUCCESSFUL PLACEMENT OF A 5 FR DUAL LUMEN 37 CM PICC IN THE LEFT BASILIC VEIN. Abdomen/Pelvis CT 08/09/17 00:00 IMPRESSION: Distended urinary bladder. Otherwise unremarkable study. Qualifiers - * PATEINT BEING DISCHARGED WITH ANY OF THE FOLLOWING DIAGNOSIS?: No Plan Discharge Plan: Discharge to home with self care; continue Bactrim DS as prescribed. Follow up with primary care provider within 1 week. Time Spent: Less than 30 Minutes
== END 2017-08-12 10:40 | disposition home or self-care (01) | DRG 603 ==
LOC: ER 20:23 → INTOOBSV 08-02 00:19 → EH 08-02 00:19 → 2N 08-02 02:05 → OBSVTOIN 08-02 23:59
PROVIDERS: ADMIT Internal Medicine Geriatric Medicine; ATTEND Internal Medicine Geriatric Medicine
PROC: 02HV33Z Insertion of Infusion Device into Superior Vena Cava, Percutaneous Approach (ICD-10-PCS; 2017-08-06)
PROC: B5181ZA Fluoroscopy of Superior Vena Cava using Low Osmolar Contrast, Guidance (ICD-10-PCS; 2017-08-06)
PROC: B548ZZA Ultrasonography of Superior Vena Cava, Guidance (ICD-10-PCS; 2017-08-06)
PROC: 0HDNXZZ Extraction of Left Foot Skin, External Approach (ICD-10-PCS; principal; 2017-08-08)
PROC: 30233N1 Transfusion of Nonautologous Red Blood Cells into Peripheral Vein, Percutaneous Approach (ICD-10-PCS; 2017-08-09)
DX: L03.032 Cellulitis of left toe (principal); B95.62 Methicillin resistant Staphylococcus aureus infection as the cause of diseases classified elsewhere; E10.40 Type 1 diabetes mellitus with diabetic neuropathy, unspecified; E10.65 Type 1 diabetes mellitus with hyperglycemia; D64.9 Anemia, unspecified; R33.9 Retention of urine, unspecified; Z79.4 Long term (current) use of insulin; Z79.899 Other long term (current) drug therapy; Z88.6 Allergy status to analgesic agent; Z83.3 Family history of diabetes mellitus; Z82.5 Family history of asthma and other chronic lower respiratory diseases; Z82.49 Family history of ischemic heart disease and other diseases of the circulatory system
CPT/HCPCS: 36415; 36430; 36569; 74177; 76937; 77001; 80048; 80053; 80202; 81001; 82565; 82962; 83605; 83690; 83735; 84100; 85025; 85027; 85610; 85652; 86140; 86850; 86900; 86901; 86920; 87040; 87070; 87075; 87077; 87086; 87186; 87205; 96365; 96367; 96375; 99284; G0378; J0690; J0743; J1642; J1644; J1815; J2270; J2405; J2543; J2550; J3370; J3480; J3490; J7030; J7060; P9016; S0164

== ENCOUNTER 2017-08-22 19:10 | Emergency (ER) | payer MEDICAID ==
[2017-08-22] MEDS ORDERED: NORMAL SALINE 1000 ML 1,000 ML IV ONE ×2 (19:48→21:41)
--- NOTE | 2017-08-22 19:50 | ER Document Report ---
ED Blood Sugar Problem - General Chief Complaint: Nausea/Vomiting Stated Complaint: NAUSEA AND VOMITING Time Seen by Provider: 08/22/17 19:43 Mode of Arrival: Ambulatory Information source: Patient Notes: Patient presents complaining of nausea vomiting and diarrhea for the past 2 days. Patient states that her children have been sick recently with similar symptoms. Patient is an insulin-dependent diabetic. Patient states that she had a low-grade fever yesterday. Patient reports elevated blood glucose level at home. Patient denies any abdominal tenderness or urinary symptoms. Patient was seen here for this complaint recently but states that Shannan is not managing her nausea symptoms. TRAVEL OUTSIDE OF THE [place] IN LAST 30 DAYS: No - HPI Onset/Duration: Persistent Quality of pain: No pain Pain Level: Denies Insulin taken: Yes Associated symptoms: Nausea, Vomiting, Other - Diarrhea. denies: Dizziness Similar symptoms previously: Yes Recently seen / treated by doctor: Yes - Related Data Allergies/Adverse Reactions: hydromorphone HCl [From Dilaudid] Allergy (Severe, Verified 08/01/17 20:26) Anaphylaxis Past Medical History - General Information source: Patient - Social History Smoking Status: Never Smoker Frequency of alcohol use: None Drug Abuse: None Occupation: [employer] Lives with: Family Family History: DM, Hypertension, Other - asthma Endocrine Medical History: Reports: Hx Diabetes Mellitus Type 1 Renal/ Medical History: Denies: Hx Peritoneal Dialysis Past Surgical History: Reports: Hx Section - x2, Hx Tubal Ligation - Immunizations Immunizations up to date: No Hx Diphtheria, Pertussis, Tetanus Vaccination: No Review of Systems - Review of Systems Constitutional: Fever - Yesterday EENT: No symptoms reported Cardiovascular: No symptoms reported. denies: Chest pain, Dizziness, Lightheaded Respiratory: No symptoms reported. denies: Cough Gastrointestinal: Diarrhea, Nausea, Vomiting. denies: Abdominal pain Genitourinary: No symptoms reported. denies: Dysuria Female Genitourinary: No symptoms reported Musculoskeletal: No symptoms reported. denies: Back pain Skin: No symptoms reported Hematologic/Lymphatic: No symptoms reported Neurological/Psychological: No symptoms reported Physical Exam - Vital signs Vitals: Resp 23 H 08/22/17 19:47 - General General appearance: Alert In distress: Mild - HEENT Head: Normocephalic, Atraumatic Eyes: Normal Conjunctiva: Normal Nasal: Normal Mouth/Lips: Normal Mucous membranes: Dry Pharynx: Normal Neck: Normal, Supple. No: Lymphadenopathy - Respiratory Respiratory status: No respiratory distress Chest status: Nontender Breath sounds: Normal. No: Rales, Rhonchi, Stridor, Wheezing Chest palpation: Normal - Cardiovascular Rhythm: Tachycardia Heart sounds: S1 appreciated, S2 appreciated Murmur: No - Abdominal Inspection: Normal Distension: No distension Bowel sounds: Normal Tenderness: Nontender Organomegaly: No organomegaly - Back Back: Normal, Nontender. No: CVA tenderness - Extremities General upper extremity: Normal inspection, Normal ROM General lower extremity: Normal inspection, Normal ROM - Neurological Neuro grossly intact: Yes Cognition: Normal Maria Antonia Coma Scale Eye Opening: Spontaneous Maria Antonia Coma Scale Verbal: Oriented [place] Coma Scale Motor: Obeys Commands [place] Coma Scale Total: 15 - Psychological Associated symptoms: Normal affect, Normal mood - Skin Skin Temperature: Warm Skin Moisture: Dry Skin Color: Pale Course - Re-evaluation Re-evalutation: 08/22/17 21:46 Patient's abdomen continues soft, nontender. Patient denies any nausea or vomiting this time. Patient states that she did take her Lantus last night. Consulted with Dr. Tena regarding patient presentation and diagnostic test results. Does recommend giving a K rider in addition to LR for the second liter bolus. 08/23/17 00:56 Patient reports feeling much better. Patient without any emesis during ER stay. Patient presents with findings concerning for gastroenteritis on top of her diabetes. Especially given that her children had similar symptoms at home. No concern for DKA at this time. Patient's abdomen continues soft, nontender. - Vital Signs Vital signs: Temp Pulse Resp BP Pulse Ox 15 114/75 99 08/23/17 01:00 08/23/17 01:00 08/23/17 01:00 - Laboratory Result Diagrams: 08/22/17 20:30 08/22/17 20:30 Laboratory results interpreted by me: 08/22/17 08/22/17 08/22/17 20:30 20:30 23:42 WBC 12.0 H Hgb 11.5 L MCV 71 L MCH 22.4 L MCHC 31.8 L RDW 24.3 H Absolute Neutrophils 9.2 H Chloride 94 L Anion Gap 22 H BUN 21 H Glucose 418 H* POC Glucose Direct Bilirubin 0.5 H Total Protein 8.7 H Urine Protein 30 H Urine Glucose (UA) >=500 H Urine Ketones 80 H Ur Leukocyte Esterase MODERATE H 08/23/17 00:45 WBC Hgb MCV MCH MCHC RDW Absolute Neutrophils Chloride Anion Gap BUN Glucose POC Glucose 114 H Direct Bilirubin Total Protein Urine Protein Urine Glucose (UA) Urine Ketones Ur Leukocyte Esterase Discharge - Discharge Clinical Impression: Nausea vomiting and diarrhea, Hyperglycemia Type 1 diabetes mellitus Qualifiers: Diabetes mellitus complication status: with hyperglycemia Qualified Code(s): E10.65 - Type 1 diabetes mellitus with hyperglycemia Condition: Stable Disposition: HOME, SELF-CARE Instructions: Antinausea Medication ([facility]), Diarrhea, Nonspecific ([facility]), Hyperglycemia ([facility]), Intravenous (IV) Fluids ([facility]), Vomiting ([facility]) Additional Instructions: Return immediately for any new or worsening symptoms Monitor your blood sugar at home Follow-up with your primary doctor tomorrow for recheck Stay well-hydrated Prescriptions: Promethazine HCl [Phenergan 25 mg Tablet] 25 mg PO Q6H PRN #12 tablet PRN Reason: Forms: Return to Work Referrals: SHANNON TEJEDA MD [Primary Care Provider] - Follow up tomorrow
[2017-08-22] MEDS ORDERED: ONDANSETRON HCL INJ/PF 4 MG/2 ML SDV IV ONE (20:40)
[2017-08-22 20:44] LABS: VENOUS BLOOD BASE EXCESS 3.6 mmol/L; VENOUS BLOOD HCO3 29.3 mmol/L (20-32); VENOUS BLOOD PH 7.4 (7.30-7.42)
[2017-08-22 20:47] LABS: ABSOLUTE BASOPHILS # (AUTO) 0.1 10^3/uL (0.0-0.2); ABSOLUTE LYMPHOCYTES (AUTO) 2.2 10^3/uL (0.5-4.7); ABSOLUTE MONOCYTES (AUTO) 0.4 10^3/uL (0.1-1.4); ABSOLUTE NEUT (AUTO) 9.2 10^3/uL (1.7-8.2); BASOPHILS % (AUTO) 0.9 % (0-2); EOSINOPHILS % (AUTO) 0.2 % (0-6); HEMATOCRIT 36.2 % (36.0-47.0); HEMOGLOBIN 11.5 g/dL (12.0-15.5); LYMPHOCYTES % (AUTO) 18.6 % (13-45); MEAN CORPUSCULAR HEMOGLOBIN 22.4 pg (27.0-33.4); MEAN CORPUSCULAR HGB CONC 31.8 g/dL (32.0-36.0); MEAN CORPUSCULAR VOLUME 71 fl (80-97); MONOCYTES % (AUTO) 3.7 % (3-13); PLATELET COUNT 450 10^3/uL (150-450); RED BLOOD COUNT 5.13 10^6/uL (3.72-5.28); RED CELL DISTRIBUTION WIDTH 24.3 % (11.5-14.0); SEGMENTED NEUTROPHILS % (AUTO) 76.6 % (42-78); TOTAL CELLS COUNTED % (AUTO) 100 %
[2017-08-22 21:02] LABS: ALANINE AMINOTRANSFERASE 23 U/L (9-52); ALBUMIN 4.2 g/dL (3.5-5.0); ALKALINE PHOSPHATASE 87 U/L (38-126); ASPARTATE AMINO TRANSFERASE 22 U/L (14-36); BILIRUBIN,DIRECT 0.5 mg/dL (0.0-0.4); BILIRUBIN,TOTAL 0.5 mg/dL (0.2-1.3); BLOOD UREA NITROGEN 21 mg/dL (7-20); CALCIUM 9.7 mg/dL (8.4-10.2); POTASSIUM 3.8 mmol/L (3.6-5.0); TOTAL PROTEIN 8.7 g/dL (6.3-8.2)
[2017-08-22 21:03] LABS: ANISOCYTOSIS 3+; HYPOCHROMASIA SLIGHT; OVALOCYTES SLIGHT; POIKILOCYTOSIS 1+; TOXIC GRANULATION SLIGHT
[2017-08-22 21:04] LABS: PLATELET COMMENT ADEQUATE
[2017-08-22 21:07] LABS: CARBON DIOXIDE 26 mmol/L (22-30); CHLORIDE 94 mmol/L (98-107); SODIUM 141.6 mmol/L (137-145)
[2017-08-22 21:08] LABS: ANION GAP 22 (5-19)
[2017-08-22 21:11] LABS: GLUCOSE 418 mg/dL (75-110)
[2017-08-22] MEDS ORDERED: RINGERS SOLUTION,LACTATED 1,000 ML IV ONE (21:45)
[2017-08-22] MEDS ORDERED: POTASSI CL 20 MEQ/50 ML RIDER 20 MEQ/50 ML RTUPB IV ONE (21:46)
[2017-08-22] MEDS ORDERED: INSULIN REG, HUMAN 100 UNIT/ML 3 ML VIAL (PYX) SUBCUT ONE (21:47)
[2017-08-23 00:06] LABS: APPEARANCE,URINE SLIGHTLY-CLOUDY; BILIRUBIN,URINE NEGATIVE (NEGATIVE); COLOR,URINE YELLOW; GLUCOSE, URINE >=500 mg/dL (NEGATIVE); KETONES,URINE 80 mg/dL (NEGATIVE); LEUKOCYTE ESTERASE,URINE MODERATE (NEGATIVE); NITRITE,URINE NEGATIVE (NEGATIVE); PROTEIN,URINE 30 mg/dL (NEGATIVE); URINE SPECIFIC GRAVITY 1.012; UROBILINOGEN,URINE NEGATIVE mg/dL (<2.0)
[2017-08-23 01:05] VITALS: BP 114/75
--- NOTE | 2017-08-23 07:50 | EKG REPORT ---
SEVERITY:- ABNORMAL ECG - SINUS TACHYCARDIA NONSPECIFIC T ABNORMALITIES, INFERIOR LEADS : Confirmed by: Mckinley Cohen MD 23-Aug-2017 07:49:29
== END 2017-08-23 01:05 | disposition home or self-care (01) ==
LOC: ER 19:10
DX: E10.65 Type 1 diabetes mellitus with hyperglycemia (principal); R11.2 Nausea with vomiting, unspecified; R19.7 Diarrhea, unspecified; R50.9 Fever, unspecified; Z79.4 Long term (current) use of insulin
CPT/HCPCS: 93005; 99284; 96361; 96375; 96365; 96366; 96368; 36415; 82962; 85025; 80053; 81001; 82803; 93010; J1815; J2405; J3480; J7030; J7120

== ENCOUNTER 2017-10-19 05:06 | Emergency (ER) | payer MEDICAID ==
[2017-10-19 05:13] VITALS: BP 128/80
--- NOTE | 2017-10-19 05:27 | ER Document Report ---
ED Medical Screen (RME) - General Chief Complaint: High Blood Sugar Stated Complaint: BLOOD SUGAR PROBLEMS Time Seen by Provider: 10/19/17 05:19 Notes: 32-year-old female with chief complaints of blood sugar abnormalities, states she checked her blood sugar before going to bed and it was reading high, she took 50 units of Lantus and came in. She denies nausea or vomiting, fever or chills, she denies any current symptoms. She states that she was told that her "face looked puffy", she denies itching, difficulty swallowing or breathing, she also states that her legs are swollen although she states frequently she has leg swelling. No history of CHF, only reported history is insulin- dependent diabetes. TRAVEL OUTSIDE OF THE [place] IN LAST 30 DAYS: No - Related Data Allergies/Adverse Reactions: hydromorphone HCl [From Dilaudid] Allergy (Severe, Verified 08/01/17 20:26) Anaphylaxis Past Medical History Endocrine Medical History: Reports: Hx Diabetes Mellitus Type 1 Renal/ Medical History: Denies: Hx Peritoneal Dialysis Past Surgical History: Reports: Hx Section - x2, Hx Tubal Ligation - Immunizations Immunizations up to date: No Hx Diphtheria, Pertussis, Tetanus Vaccination: No History of Influenza Vaccine for 02/2017 - 07/2017 Season: Refused Physical Exam - Vital signs Vitals: Temp Pulse Resp BP Pulse Ox 99.1 F 95 18 128/80 H 99 10/19/17 05:11 10/19/17 05:10/19/17 05:10/19/17 05:10/19/17 05:11 - HEENT Pharynx: Normal. No: Uvular edema, Potential airway comprom. - Respiratory Respiratory status: No respiratory distress Breath sounds: Normal. No: Decreased air movement, Wheezing - Extremities General lower extremity: Edema - Bilateral lower extremity pitting edema Course - Re-evaluation Re-evalutation: I have greeted and performed a rapid initial assessment of this patient. A comprehensive ED assessment and evaluation of the patient, analysis of test results and completion of the medical decision making process will be conducted by additional ED providers. - Vital Signs Vital signs: Temp Pulse Resp BP Pulse Ox 99.1 F 95 18 128/80 H 99 10/19/17 05:11 10/19/17 05:10/19/17 05:10/19/17 05:11 10/19/17 05:11 Doctor's Discharge - Discharge Referrals: SHANNON TEJEDA MD [Primary Care Provider] - Follow up as needed
[2017-10-19 05:58] LABS: ABSOLUTE BASOPHILS # (AUTO) 0.1 10^3/uL (0.0-0.2); ABSOLUTE EOSINOPHILS # (AUTO) 0.4 10^3/uL (0.0-0.6); ABSOLUTE LYMPHOCYTES (AUTO) 2.8 10^3/uL (0.5-4.7); ABSOLUTE MONOCYTES (AUTO) 0.6 10^3/uL (0.1-1.4); BASOPHILS % (AUTO) 1.1 % (0-2); EOSINOPHILS % (AUTO) 4.5 % (0-6); HEMATOCRIT 31.8 % (36.0-47.0); HEMOGLOBIN 10.5 g/dL (12.0-15.5); LYMPHOCYTES % (AUTO) 35.9 % (13-45); MEAN CORPUSCULAR HEMOGLOBIN 24.4 pg (27.0-33.4); MEAN CORPUSCULAR HGB CONC 32.9 g/dL (32.0-36.0); MEAN CORPUSCULAR VOLUME 74 fl (80-97); MONOCYTES % (AUTO) 7.5 % (3-13); PLATELET COUNT 329 10^3/uL (150-450); RED BLOOD COUNT 4.28 10^6/uL (3.72-5.28); RED CELL DISTRIBUTION WIDTH 23.4 % (11.5-14.0); TOTAL CELLS COUNTED % (AUTO) 100 %; WHITE BLOOD COUNT 7.9 10^3/uL (4.0-10.5)
[2017-10-19 06:06] LABS: VENOUS BLOOD BASE EXCESS 3.9 mmol/L; VENOUS BLOOD HCO3 29.8 mmol/L (20-32); VENOUS BLOOD PH 7.38 (7.30-7.42)
[2017-10-19 06:14] LABS: ALANINE AMINOTRANSFERASE 15 U/L (9-52); ALBUMIN 3.6 g/dL (3.5-5.0); ALKALINE PHOSPHATASE 58 U/L (38-126); ANION GAP 10 (5-19); ASPARTATE AMINO TRANSFERASE 27 U/L (14-36); BILIRUBIN,DIRECT 0.2 mg/dL (0.0-0.4); BILIRUBIN,TOTAL 0.2 mg/dL (0.2-1.3); BLOOD UREA NITROGEN 10 mg/dL (7-20); CALCIUM 9.5 mg/dL (8.4-10.2); CARBON DIOXIDE 27 mmol/L (22-30); CHLORIDE 105 mmol/L (98-107); GLUCOSE 116 mg/dL (75-110); POTASSIUM 3.7 mmol/L (3.6-5.0); TOTAL PROTEIN 7.1 g/dL (6.3-8.2)
--- NOTE | 2017-10-19 06:15 | ER Document Report ---
ED General - General Chief Complaint: High Blood Sugar Stated Complaint: BLOOD SUGAR PROBLEMS Time Seen by Provider: 10/19/17 05:19 Mode of Arrival: Ambulatory Information source: Patient Notes: 32-year-old female type I diabetic presents with complaints of peripheral edema of 2 day duration. Patient denies any chest pain shortness breath difficulty breathing. She notes no recent travel no control use no DVT or PE risk factors. Patient denies any previous similar episodes of peripheral edema. Patient notes her blood sugar was reading as high prior to arrival, she notes she took her Lantus and upon arrival her blood sugar was in the 100 range. TRAVEL OUTSIDE OF THE [place] IN LAST 30 DAYS: No - HPI Onset: Other - 2 day duration Onset/Duration: Persistent Quality of pain: Achy Severity: Mild Pain Level: 1 Associated symptoms: Other Exacerbated by: Denies Relieved by: Denies Similar symptoms previously: No Recently seen / treated by doctor: Yes - Related Data Allergies/Adverse Reactions: hydromorphone HCl [From Dilaudid] Allergy (Severe, Verified 08/01/17 20:26) Anaphylaxis Past Medical History - Social History Smoking Status: Never Smoker Cigarette use (# per day): No Chew tobacco use (# tins/day): No Smoking Education Provided: No Family History: DM, Hypertension, Other - asthma Patient has suicidal ideation: No Patient has homicidal ideation: No Endocrine Medical History: Reports: Hx Diabetes Mellitus Type 1 Renal/ Medical History: Denies: Hx Peritoneal Dialysis Past Surgical History: Reports: Hx Section - x2, Hx Tubal Ligation - Immunizations Immunizations up to date: No Hx Diphtheria, Pertussis, Tetanus Vaccination: No Review of Systems - Review of Systems Notes: REVIEW OF SYSTEMS: CONSTITUTIONAL : Denies fever, chills, or sweats. Denies recent illness. EENT: Denies eye, ear, throat, or mouth pain or symptoms. Denies nasal or sinus congestion or discharge. Denies throat, tongue, or mouth swelling or difficulty swallowing. CARDIOVASCULAR: Peripheral edema RESPIRATORY: Denies cough, cold, or chest congestion. Denies shortness of breath, difficulty breathing, or wheezing. GASTROINTESTINAL: Denies abdominal pain or distention. Denies nausea, vomiting , or diarrhea. Denies blood in vomitus, stools, or per rectum. Denies black, tarry stools. Denies constipation. GENITOURINARY: Denies difficulty urinating, painful urination, burning, frequency, blood in urine, or discharge. FEMALE GENITOURINARY: Denies vaginal bleeding, heavy or abnormal periods, irregular periods. Denies vaginal discharge or odor. MUSCULOSKELETAL: Denies back or neck pain or stiffness. Denies joint pain or swelling. SKIN: Denies rash, lesions or sores. HEMATOLOGIC : Denies easy bruising or bleeding. LYMPHATIC: Denies swollen, enlarged glands. NEUROLOGICAL: Denies confusion or altered mental status. Denies passing out or loss of consciousness. Denies dizziness or lightheadedness. Denies headache. Denies weakness or paralysis or loss of use of either side. Denies problems with gait or speech. Denies sensory loss, numbness, or tingling. Denies seizures. PSYCHIATRIC: Denies anxiety or stress. Denies depression, suicidal ideation, or homicidal ideation. ALL OTHER SYSTEMS REVIEWED AND NEGATIVE. PHYSICAL EXAMINATION: GENERAL: Well-appearing, well-nourished and in no acute distress. HEAD: Atraumatic, normocephalic. EYES: Pupils equal round and reactive to light, extraocular movements intact, conjunctiva are normal. ENT: Nares patent, oropharynx clear without exudates. Moist mucous membranes. NECK: Normal range of motion, supple without lymphadenopathy LUNGS: Breath sounds clear to auscultation bilaterally and equal. No wheezes rales or rhonchi. HEART: Regular rate and rhythm without murmurs ABDOMEN: Soft, nontender, nondistended abdomen. No guarding, no rebound. No masses appreciated. Female : deferred Musculoskeletal: +1 pitting edema bilateral lower extremity NEUROLOGICAL: Cranial nerves grossly intact. Normal speech, normal gait. Normal sensory, motor exams PSYCH: Normal mood, normal affect. SKIN: Warm, Dry, normal turgor, no rashes or lesions noted. Dictation was performed using [employer] voice recognition software Physical Exam - Vital signs Vitals: Temp Pulse Resp BP Pulse Ox 99.1 F 95 18 128/80 H 99 10/19/17 05:11 10/19/17 05:11 10/19/17 05:11 10/19/17 05:11 10/19/17 05:11 Course - Re-evaluation Re-evalutation: 10/19/17 06:32 Patient's presentation most consistent with venous stasis, she does not appear to have any signs of congestive heart failure lungs are clear to auscultation, she is not having any chest pain shortness of breath or risk factors for DVT or PE, chest x-ray is pending 10/19/17 07:11 Chest x-ray notes no cardiomegaly no effusions, therefore I will have patient use compression stockings and follow-up with primary care physician for further evaluation care After performing a Medical Screening Examination, I estimate there is LOW risk for RUPTURED ESOPHAGUS, PNEUMOTHORAX, PULMONARY EMBOLISM, ACUTE CORONARY SYNDROME, OR THORACIC AORTIC DISSECTION, thus I consider the discharge disposition reasonable. I have reevaluated this patient multiple times and no significant life threatening changes are noted. The patient and I have discussed the diagnosis and risks, and we agree with discharging home with close follow-up. We also discussed returning to the Emergency Department immediately if new or worsening symptoms occur. We have discussed the symptoms which are most concerning (e.g., bloody sputum, worsening pain or shortness of breath) that necessitate immediate return. - Vital Signs Vital signs: Temp Pulse Resp BP Pulse Ox 99.1 F 95 18 128/80 H 99 10/19/17 05:11 10/19/17 05:11 10/19/17 05:11 10/19/17 05:11 10/19/17 05:11 - Laboratory Result Diagrams: 10/19/17 05:39 10/19/17 05:39 Laboratory results interpreted by me: 10/19/17 10/19/17 10/19/17 05:19 05:39 05:39 Hgb 10.5 L Hct 31.8 L MCV 74 L MCH 24.4 L RDW 23.4 H Creatinine 0.48 L Glucose 116 H POC Glucose 147 H - Diagnostic Test Radiology reviewed: Image reviewed - Chest x-ray 2 view notes no acute abnormality, Reports reviewed Discharge - Discharge Clinical Impression: Edema of both lower extremities due to peripheral venous insufficiency, Hyperglycemia Condition: Stable Disposition: HOME, SELF-CARE Instructions: Edema, Peripheral ([facility]) Additional Instructions: Return immediately if there are any news symptoms, worsening or any other concerns Referrals: SHANNON TEJEDA MD [Primary Care Provider] - Follow up tomorrow
--- NOTE | 2017-10-19 06:48 | RADIOLOGY REPORT (SQ) ---
EXAM DESCRIPTION: XR CHEST 2 VIEWS CLINICAL HISTORY: 32 years Female, peripheral edema COMPARISON: None. FINDINGS: Adequate lung volume, clear parenchyma, normal cardiac silhouette, and intact bony thorax. IMPRESSION: No acute cardiopulmonary findings.
== END 2017-10-19 07:32 | disposition home or self-care (01) ==
LOC: ER 05:06
DX: E10.51 Type 1 diabetes mellitus with diabetic peripheral angiopathy without gangrene (principal); E10.65 Type 1 diabetes mellitus with hyperglycemia; R60.0 Localized edema; Z88.5 Allergy status to narcotic agent
CPT/HCPCS: 36415; 71046; 80053; 82803; 82962; 84703; 85025; 99285

== ENCOUNTER 2017-12-25 15:04 | Inpatient (IN) | payer MEDICAID ==
[2017-12-25] MEDS ORDERED: PIPERACILLIN/TAZOBACTAM 3.375 GM VIAL IV ONE (15:46)
[2017-12-25] MEDS ORDERED: DOXYCYCLINE HYCLATE INJ 100 MG VIAL IV ONE (15:46)
[2017-12-25] MEDS ORDERED: ONDANSETRON HCL INJ/PF 4 MG/2 ML SDV IV ONE ×2 (15:47→22:30)
[2017-12-25] MEDS ORDERED: FENTANYL CITRATE INJ/PF 100 MCG/2 ML AMPUL IV ONE (15:48)
[2017-12-25] MEDS ORDERED: NORMAL SALINE 1000 ML 1,000 ML IV ONE (15:49)
--- NOTE | 2017-12-25 15:50 | ER Document Report ---
ED Medical Screen (RME) - General Chief Complaint: Wound Infection Stated Complaint: LEG LACERATION Time Seen by Provider: 12/25/17 15:43 Notes: 32 years old female presents today with pain and swelling over the left lower leg. She was scratched by cat, 1 week ago in the left leg., Now the whole entire leg has swelled up, erythematous warm and tender to touch. She has type 2 diabetic. TRAVEL OUTSIDE OF THE [place] IN LAST 30 DAYS: No - Related Data Allergies/Adverse Reactions: hydromorphone HCl [From Dilaudid] Allergy (Severe, Verified 08/01/17 20:26) Anaphylaxis Past Medical History - Social History Frequency of alcohol use: Occasional Endocrine Medical History: Reports: Hx Diabetes Mellitus Type 1 Renal/ Medical History: Denies: Hx Peritoneal Dialysis Past Surgical History: Reports: Hx Section - x2, Hx Tubal Ligation - Immunizations Immunizations up to date: No Hx Diphtheria, Pertussis, Tetanus Vaccination: No History of Influenza Vaccine for 02/2017 - 07/2017 Season: Refused Physical Exam - Vital signs Vitals: Temp Pulse Resp BP Pulse Ox 99 F 96 14 119/77 100 12/25/17 15:07 12/25/17 15:07 12/25/17 15:07 12/25/17 15:07 12/25/17 15:07 Course - Vital Signs Vital signs: Temp Pulse Resp BP Pulse Ox 99 F 96 14 119/77 100 12/25/17 15:07 12/25/17 15:07 12/25/17 15:07 12/25/17 15:07 12/25/17 15:07 Doctor's Discharge - Discharge Referrals: SHANNON TEJEDA MD [Primary Care Provider] - Follow up as needed
[2017-12-25 16:25] LABS: ABSOLUTE EOSINOPHILS # (AUTO) 0.2 10^3/uL (0.0-0.6); ABSOLUTE LYMPHOCYTES (AUTO) 2.4 10^3/uL (0.5-4.7); ABSOLUTE NEUT (AUTO) 9.4 10^3/uL (1.7-8.2); BASOPHILS % (AUTO) 0.3 % (0-2); EOSINOPHILS % (AUTO) 1.6 % (0-6); HEMATOCRIT 31.3 % (36.0-47.0); LYMPHOCYTES % (AUTO) 18.6 % (13-45); MEAN CORPUSCULAR HEMOGLOBIN 24.3 pg (27.0-33.4); MEAN CORPUSCULAR VOLUME 76 fl (80-97); MONOCYTES % (AUTO) 7.5 % (3-13); PLATELET COUNT 495 10^3/uL (150-450); RED BLOOD COUNT 4.12 10^6/uL (3.72-5.28); RED CELL DISTRIBUTION WIDTH 16.9 % (11.5-14.0); TOTAL CELLS COUNTED % (AUTO) 100 %; WHITE BLOOD COUNT 13.1 10^3/uL (4.0-10.5)
--- NOTE | 2017-12-25 17:08 | RADIOLOGY REPORT (SQ) ---
EXAM DESCRIPTION: VENOUS UNILATERAL LOWER COMPLETED DATE/TIME: 12/25/2017 4:58 pm REASON FOR STUDY: Left leg DVT COMPARISON: None. TECHNIQUE: Dynamic and static reyes scale and color images acquired of the left leg venous system. Se lected spectral images acquired with additional compression and augmentation maneuvers. The contralat eral common femoral vein and saphenofemoral junction were also imaged. Images stored on PACS. LIMITATIONS: None. FINDINGS: LEFT COMMON FEMORAL: Normal phasicity, compression and augmentation. No visualized echogenic material on g ray scale. No defects on color images. FEMORAL: Normal compression and augmentation. No visualized echogenic material on reyes scale. No defe cts on color images. POPLITEAL: Normal compression, augmentation. No visualized echogenic material on reyes scale. No defec ts on color images. CALF VESSELS: Normal compression, augmentation. No visualized echogenic material on reyes scale. No de fects on color images. GSV and SSV: Normal compression, augmentation. No visualized echogenic material on reyes scale. No def ects on color images. ANY DEEP VENOUS INSUFFICIENCY: Not evaluated. ANY EVIDENCE OF POPLITEAL CYST: No. OTHER: No other significant finding. RIGHT COMMON FEMORAL VEIN AND SAPHENOFEMORAL JUNCTION: Normal phasicity, compression and augmentation. No visualized echogenic material on reyes scale. No de fects on color images. IMPRESSION: NO EVIDENCE OF DVT OR SVT IN THE LEFT LEG. TECHNICAL DOCUMENTATION: JOB ID: [id number] [employer]- All Rights Reserved Reading location - IP/workstation name: [email or web address]
[2017-12-25 17:36] LABS: ALANINE AMINOTRANSFERASE 18 U/L (9-52); ALBUMIN 3.6 g/dL (3.5-5.0); ALKALINE PHOSPHATASE 92 U/L (38-126); ANION GAP 15 (5-19); ASPARTATE AMINO TRANSFERASE 16 U/L (14-36); BILIRUBIN,DIRECT 0.4 mg/dL (0.0-0.4); BILIRUBIN,TOTAL 0.6 mg/dL (0.2-1.3); BLOOD UREA NITROGEN 9 mg/dL (7-20); CALCIUM 9.2 mg/dL (8.4-10.2); CARBON DIOXIDE 25 mmol/L (22-30); CHLORIDE 94 mmol/L (98-107); TOTAL PROTEIN 7.7 g/dL (6.3-8.2)
[2017-12-25 17:44] LABS: GLUCOSE 496 mg/dL (75-110)
--- NOTE | 2017-12-25 20:16 | ER Document Report ---
ED Wound - General Chief Complaint: Wound Infection Stated Complaint: LEG LACERATION Time Seen by Provider: 12/25/17 15:43 Notes: Patient presents with complaint of left lower extremity swelling and redness. Patient reports she was scratched on her left mcintyre by a cat last Saturday. Patient denies any fevers and denies any pain, reports it feels tight. Patient is an insulin-dependent diabetic, denies any other past medical history. TRAVEL OUTSIDE OF THE [place] IN LAST 30 DAYS: No - Related Data Allergies/Adverse Reactions: hydromorphone HCl [From Dilaudid] Allergy (Severe, Verified 08/01/17 20:26) Anaphylaxis Past Medical History - General Information source: Patient - Social History Smoking Status: Never Smoker Chew tobacco use (# tins/day): No Frequency of alcohol use: Occasional Drug Abuse: None Family History: DM, Hypertension, Other - asthma Patient has suicidal ideation: No Patient has homicidal ideation: No Endocrine Medical History: Reports: Hx Diabetes Mellitus Type 2 Renal/ Medical History: Denies: Hx Peritoneal Dialysis Past Surgical History: Reports: Hx Section - x2, Hx Tubal Ligation - Immunizations Immunizations up to date: No Hx Diphtheria, Pertussis, Tetanus Vaccination: No Review of Systems - Review of Systems Constitutional: No symptoms reported EENT: No symptoms reported Cardiovascular: No symptoms reported Respiratory: No symptoms reported Gastrointestinal: No symptoms reported Genitourinary: No symptoms reported Female Genitourinary: No symptoms reported Musculoskeletal: No symptoms reported Skin: See HPI Hematologic/Lymphatic: No symptoms reported Neurological/Psychological: No symptoms reported Physical Exam - Vital signs Vitals: Temp Pulse Resp BP Pulse Ox 99 F 96 14 119/77 100 12/25/17 15:07 12/25/17 15:07 12/25/17 15:07 12/25/17 15:07 12/25/17 15:07 - Notes Notes: PHYSICAL EXAMINATION: GENERAL: Well-appearing, well-nourished and in no acute distress. HEAD: Atraumatic, normocephalic. EYES: Pupils equal round and reactive to light, extraocular movements intact, conjunctiva are normal. ENT: Nares patent, oropharynx clear without exudates. Moist mucous membranes. NECK: Normal range of motion, supple without lymphadenopathy LUNGS: Breath sounds clear to auscultation bilaterally and equal. No wheezes rales or rhonchi. HEART: Regular rate and rhythm without murmurs ABDOMEN: Soft, nontender, nondistended abdomen. No guarding, no rebound. No masses appreciated. Female : deferred Musculoskeletal: Normal range of motion, no pitting or edema. No cyanosis. NEUROLOGICAL: Cranial nerves grossly intact. Normal speech, normal gait. Normal sensory, motor exams PSYCH: Normal mood, normal affect. SKIN: Erythema and swelling noted to left lower extremity from ankle to knee, abrasions noted to anterior knee consistent with cat scratch.. Course - Re-evaluation Re-evalutation: Patient's initial workup was initiated by triage provider. Patient is resting in stretcher talking on her cell phone upon my initial evaluation. Vital signs are within normal limits. Patient denies any pain currently however she reports that her left lower extremity feels "tight". Patient denies any fevers. Patient reports she was scratched by her neighbor's cat, she reports the cat's immunizations are all up-to-date as far she knows. Venous Doppler study ordered by triage provider is negative for any DVT or SVT. Patient with leukocytosis and hyperglycemia on her lab evaluation. Patient's glucose is 496, when patient asked about this she reports that she missed the last 2 doses of her Lantus, she states she takes 45 units twice daily and has not had it since yesterday morning. Patient reports that her blood sugars always run in the 400s or higher. IV antibiotics continue to infuse that were ordered by triage provider, she has received doxycycline and Zosyn IV. Consulted hospitalist for admission, admission accepted patient will be admitted to a medical floor for cellulitis. - Vital Signs Vital signs: Temp Pulse Resp BP Pulse Ox 99.2 F 105 H 14 142/82 H 100 12/25/17 20:02 12/25/17 20:02 12/25/17 15:07 12/25/17 20:02 12/25/17 20:02 - Laboratory Result Diagrams: 12/25/17 16:00 12/25/17 17:08 Laboratory results interpreted by me: 12/25/17 12/25/17 12/25/17 16:00 16:00 17:08 WBC 13.1 H Hgb 10.0 L Hct 31.3 L MCV 76 L MCH 24.3 L RDW 16.9 H Plt Count 495 H Absolute Neutrophils 9.4 H Sodium 134.0 L Chloride 94 L Glucose 496 H* Hemoglobin A1c % 10.2 H Discharge - Discharge Clinical Impression: Hyperglycemia Cellulitis Qualifiers: Site of cellulitis: extremity Site of cellulitis of extremity: lower extremity Laterality: left Qualified Code(s): L03.116 - Cellulitis of left lower limb Leukocytosis Qualifiers: Leukocytosis type: unspecified Qualified Code(s): D72.829 - Elevated white blood cell count, unspecified Condition: Stable Disposition: ADMITTED INPATIENT Admitting Provider: Hospitalist
[2017-12-25] MEDS ORDERED: GLUCAGON,HUMAN RECOMB 1 MG INJ IM PRN (20:18)
[2017-12-25] MEDS ORDERED: ACETAMINOPHEN 325 MG TABLET PO PRN (20:18)
[2017-12-25] MEDS ORDERED: MAGNESIUM HYDROXIDE SUSP 30 ML UDCUP PO PRN (20:18)
[2017-12-25] MEDS ORDERED: IPRATROPIUM/ALBUTEROL 0.5-2.5 MG/3 ML AMPUL NEB PRN (20:18)
[2017-12-25] MEDS ORDERED: DEXTROSE 40% GEL 15 GM TUBE PO PRN ×2 (20:18)
[2017-12-25] MEDS ORDERED: DEXTROSE 50%-WATER 25 GM/50 ML DISP.SYRIN IV PRN ×2 (20:18)
[2017-12-25] MEDS ORDERED: INSULIN LISPRO 100 UNIT/ML 3 ML VIAL SUBCUT PRN (20:18)
[2017-12-25] MEDS ORDERED: KETOROLAC TROMETHAMINE INJ/PF 30 MG/1 ML SDV IV PRN (20:21)
[2017-12-25] MEDS ORDERED: NORMAL SALINE 1000 ML 1,000 ML IV SCH (20:30)
[2017-12-25] MEDS ORDERED: AZITHROMYCIN 500 MG in DEXTROSE 5%-WATER 250 ML IV SCH (22:00)
[2017-12-25] MEDS ORDERED: CIPROFLOXACIN 400 MG/D5W RTU 400 MG/200 ML RTUPB IV SCH (22:00)
[2017-12-25] MEDS ORDERED: CLINDAMYCIN 900 MG/D5W RTU 900 MG/50 ML RTUPB IV ONE (22:15)
--- NOTE | 2017-12-25 22:45 | RADIOLOGY REPORT (SQ) ---
EXAM DESCRIPTION: CT LT LOWER EXTREMITY WITHOUT COMPLETED DATE/TIME: 12/25/2017 9:43 pm REASON FOR STUDY: cellulitis COMPARISON: None. TECHNIQUE: Axial imaging performed through the left lower leg with reformatted coronal and sagittal imaging windowed for bone and soft tissues. Images saved to PACS. 3D IMAGING: Were 3D images as MIP, SSD, or volume rendering performed at the work station? No All CT scanners at this facility use dose modulation, iterative reconstruction, and/or weight based d osing when appropriate to reduce radiation dose to as low as reasonably achievable (ALARA). [facility]: Dose Right [facility]: CareDose [facility]: Dose Right [facility]: Teradose 4D [facility]: [employer] LIMITATIONS: None. RADIATION DOSE: CT Rad equipment meets quality standard of care and radiation dose reduction techniq ues were employed. CTDIvol: 4.1 mGy. DLP: 230 mGy-cm. mGy. FINDINGS: SOFT TISSUES: Generalized soft tissue swelling predominantly subcutaneous. Extends along the entire mcintyre and posteriorly. Asymmetric swelling of the anterior tibialis muscle and the flexor digitorum longus. Somewhat heterogeneous appearance raising the question of small abscesses. BONES: No evidence for osteomyelitis. MINERALIZATION: Normal. OTHER: No other significant finding. IMPRESSION: Extensive subcutaneous swelling. There is also question of multiple abscesses with asym metric swelling of the anterior tibialis muscle and possibly the flexor digitorum longus. Evaluation of soft tissues extremely limited with CT. COMMENT: Recommend MRI with contrast to evaluate for possible soft tissue abscesses. TECHNICAL DOCUMENTATION: JOB ID: [id number] Quality ID # [id number]: Final reports with documentation of one or more dose reduction techniques (e.g., Au tomated exposure control, adjustment of the mA and/or kV according to patient size, use of iterative reconstruction technique) 2010 [employer]- All Rights Reserved Reading location - IP/workstation name: [email or web address]
[2017-12-26] MEDS ORDERED: ACETAMINOPHEN 325 MG TABLET PO PRN (02:41)
[2017-12-26] MEDS ORDERED: VANCOMYCIN HCL INJ 1000 MG VIAL IV PRN (02:42)
[2017-12-26] MEDS ORDERED: HEPARIN SOD (PORCINE) 5,000 UNIT/ML 1 ML SYRINGE SUBCUT ONE (02:45)
[2017-12-26] MEDS ORDERED: VANCOMYCIN HCL 1,000 MG in DEXTROSE 5%-WATER 250 ML IV ONE (02:45)
[2017-12-26] MEDS ORDERED: CLINDAMYCIN 900 MG/D5W RTU 900 MG/50 ML RTUPB IV ONE (02:45)
[2017-12-26] MEDS ORDERED: VANCOMYCIN HCL 0 MG in DEXTROSE 5%-WATER 250 ML IV NR (02:45)
[2017-12-26] MEDS: HUM INSULIN NPH/REG INSULIN HM 100 UNIT/1 ML 3 ML SUBCUT SCH ×2 (04:36→07:57)
--- NOTE | 2017-12-26 04:36 | PDOC H&P ---
History of Present Illness Admission Date/PCP: 12/25/17 20:45 SHANNON TEJEDA Patient complains of: Left leg pain and swelling History of Present Illness: ISSA BANEGAS is a 32 year old female with a past medical history of poorly controlled diabetes, MRSA cellulitis and cat scratch 1 week ago resulting in erythema and pain to the left leg. Symptoms prompted evaluation emergency room where she is found to have circumferential erythema, tenderness, edema and a 0.5 cm lesion without exudate. She denies recent antibiotics. She is ordered doxycycline, Zosyn and referred to the hospitalist for admission. Upon evaluation of the patient she has marketed tenderness prompting a CT of the extremity for evaluation of abscess. 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 Past Surgical History Past Surgical History: Reports: Section - x2, Tubal Ligation Social History Information Source: Patient Smoking Status: Never Smoker Frequency of Alcohol Use: Occasional - vodka. Hx Recreational Drug Use: No Drugs: None Hx Prescription Drug Abuse: No - Advance Directive Resuscitation Status: Full Code Family History Family History: DM, Hypertension, Other - asthma Parental Family History Reviewed: Yes Children Family History Reviewed: Yes Sibling(s) Family History Reviewed.: Yes Medication/Allergy Allergies/Adverse Reactions: hydromorphone HCl [From Dilaudid] Allergy (Severe, Verified 08/01/17 20:26) Anaphylaxis Review of Systems Constitutional: ABSENT: chills, fever(s), headache(s), weight gain, weight loss Eyes: ABSENT: visual disturbances Ears: ABSENT: hearing changes Cardiovascular: ABSENT: chest pain, dyspnea on exertion, edema, orthropnea, palpitations Respiratory: ABSENT: cough, hemoptysis Gastrointestinal: ABSENT: abdominal pain, constipation, diarrhea, hematemesis, hematochezia, nausea, vomiting Genitourinary: ABSENT: dysuria, hematuria Musculoskeletal: ABSENT: joint swelling Integumentary: ABSENT: rash, wounds Neurological: ABSENT: abnormal gait, abnormal speech, confusion, dizziness, focal weakness, syncope Psychiatric: ABSENT: anxiety, depression, homidical ideation, suicidal ideation Endocrine: ABSENT: cold intolerance, heat intolerance, polydipsia, polyuria Hematologic/Lymphatic: ABSENT: easy bleeding, easy bruising Physical Exam Vital Signs: Temp Pulse Resp BP Pulse Ox 99.8 F 104 H 14 107/63 100 12/26/17 03:52 12/26/17 03:52 12/26/17 03:52 12/26/17 03:52 12/26/17 03:52 Intake & Output 12/24/17 12/25/17 12/26/17 11:59 11:59 11:59 Intake Total 300 Balance 300 General appearance: PRESENT: cooperative, mild distress, well-developed, well- nourished Head exam: PRESENT: atraumatic, normocephalic Eye exam: PRESENT: conjunctiva pink, EOMI, PERRLA. ABSENT: scleral icterus Ear exam: PRESENT: normal external ear exam Mouth exam: PRESENT: moist, tongue midline Neck exam: ABSENT: carotid bruit, JVD, lymphadenopathy, thyromegaly Respiratory exam: PRESENT: clear to auscultation dillan. ABSENT: rales, rhonchi, wheezes Cardiovascular exam: PRESENT: RRR. ABSENT: diastolic murmur, rubs, systolic murmur Pulses: PRESENT: normal dorsalis pedis pul Vascular exam: PRESENT: normal capillary refill GI/Abdominal exam: PRESENT: normal bowel sounds, soft. ABSENT: distended, guarding, mass, organolmegaly, rebound, tenderness Rectal exam: PRESENT: deferred Extremities exam: PRESENT: full ROM, tenderness, +1 edema. ABSENT: calf tenderness, clubbing, joint swelling, pedal edema Neurological exam: PRESENT: alert, awake, oriented to person, oriented to place , oriented to time, oriented to situation, CN II-XII grossly intact. ABSENT: motor sensory deficit Psychiatric exam: PRESENT: appropriate affect, normal mood. ABSENT: homicidal ideation, suicidal ideation Skin exam: PRESENT: abrasion, erythema, rash, skin tears, warm. ABSENT: cyanosis Results Impressions: Lower Extremity CT 12/25/17 00:00 IMPRESSION: Extensive subcutaneous swelling. There is also question of multiple abscesses with asymmetric swelling of the anterior tibialis muscle and possibly the flexor digitorum longus. Evaluation of soft tissues extremely limited with CT. Venous Doppler Study 12/25/17 15:50 IMPRESSION: NO EVIDENCE OF DVT OR SVT IN THE LEFT LEG. Assessment & Plan - Diagnosis (1) Cellulitis of left leg Is this a current diagnosis for this admission?: Yes Plan: Optimize antibiotics for cat scratch with azithromycin and clindamycin. Given history of MRSA vancomycin added. Follow-up CT left leg and surgical consult (2) MRSA (methicillin resistant staph aureus) culture positive Is this a current diagnosis for this admission?: Yes Plan: Follow-up blood culture, formally clindamycin sensitive, given severity of current cellulitis with uncontrolled diabetes, both clindamycin and vancomycin initiated (3) Diabetes 1.5, managed as type 1 Is this a current diagnosis for this admission?: Yes Plan: Outpatient regiment with Humalog sliding scale - Time Time Spent: 50 to 70 Minutes
[2017-12-26] MEDS: HEPARIN SOD (PORCINE) 5,000 UNIT/ML 1 ML SYRINGE SUBCUT SCH ×2 (04:38→07:58)
[2017-12-26] MEDS ORDERED: CLINDAMYCIN 900 MG/D5W RTU 900 MG/50 ML RTUPB IV SCH ×2 (06:00→10:00)
--- NOTE | 2017-12-26 06:26 | PDOC CONSULTATION ---
Consultation Consult reason:: Cellulitis of the left lower extremity History of Present Illness Admission Date/PCP: 12/25/17 20:45 SHANNON TEJEDA History of Present Illness: ISSA BANEGAS is a 32 year old female seen at the request of Dr. Ortega, hospitalist. This is a patient who had a cat scratch on the left leg over the weekend. She reports that on Saturday it began swelling. It also became painful and red. The pain became worse to the point where she presented to the emergency department for evaluation. Her blood sugars were found to be almost 500. She is a diabetic. Her pain extends from the toes up above the knee. Her pain is dull and throbbing. She reports that it is severe at times, 8 out of 10. The medications make her pain better. Walking and movement make her pain worse. 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 Past Surgical History Past Surgical History: Reports: Section - x2, Tubal Ligation Social History Smoking Status: Never Smoker Frequency of Alcohol Use: Occasional - vodka. Hx Recreational Drug Use: No Drugs: None Hx Prescription Drug Abuse: No - Advance Directive Resuscitation Status: Full Code Family History Family History: DM, Hypertension, Other - asthma Parental Family History Reviewed: Yes Children Family History Reviewed: Yes Sibling(s) Family History Reviewed.: Yes Medication/Allergy Allergies/Adverse Reactions: hydromorphone HCl [From Dilaudid] Allergy (Severe, Verified 08/01/17 20:26) Anaphylaxis Review of Systems Constitutional: PRESENT: chills, fatigue, fever(s) Eyes: ABSENT: visual disturbances Ears: ABSENT: hearing changes Nose, Mouth, and Throat: ABSENT: sore throat Cardiovascular: PRESENT: edema Respiratory: ABSENT: cough, dyspnea Gastrointestinal: ABSENT: abdominal pain, bloating, constipation Genitourinary: ABSENT: difficulty urinating, dysuria Musculoskeletal: ABSENT: back pain Integumentary: PRESENT: erythema, wounds, other - Edema of the left lower extremity Neurological: ABSENT: abnormal movements, abnormal speech, confusion, convulsions, dizziness Psychiatric: ABSENT: anxiety Endocrine: ABSENT: cold intolerance, heat intolerance Hematologic/Lymphatic: ABSENT: easy bleeding, easy bruising Physical Exam Vital Signs: Temp Pulse Resp BP Pulse Ox 99.8 F 104 H 14 107/63 100 12/26/17 03:52 12/26/17 03:52 12/26/17 03:52 12/26/17 03:52 12/26/17 03:52 Intake & Output 12/24/17 12/25/17 12/26/17 06:59 06:59 06:59 Intake Total 300 Balance 300 General appearance: PRESENT: no acute distress Head exam: PRESENT: atraumatic, normocephalic Eye exam: PRESENT: EOMI, PERRLA. ABSENT: scleral icterus Mouth exam: PRESENT: neck supple Neck exam: ABSENT: lymphadenopathy, meningismus, tenderness, thyromegaly, tracheal deviation Respiratory exam: PRESENT: clear to auscultation dillan, unlabored. ABSENT: chest wall tenderness, rales, rhonchi, tachypnea, wheezes Cardiovascular exam: PRESENT: RRR Pulses: PRESENT: normal radial pulses Vascular exam: PRESENT: normal capillary refill. ABSENT: pallor GI/Abdominal exam: PRESENT: soft. ABSENT: distended, guarding, tenderness Rectal exam: PRESENT: deferred Extremities exam: PRESENT: pedal edema - Left lower extremity, other - Several small wounds to the anterior left lower leg. No obvious fluctuance or abscess present on physical exam. Large amount of erythema and edema. Musculoskeletal exam: ABSENT: deformity Neurological exam: PRESENT: alert, awake, oriented to person, oriented to place , oriented to time, oriented to situation, CN II-XII grossly intact Psychiatric exam: ABSENT: agitated, anxious Focused psych exam: ABSENT: delusional Skin exam: PRESENT: erythema. ABSENT: cyanosis, jaundice Results Impressions: Lower Extremity CT 12/25/17 00:00 IMPRESSION: Extensive subcutaneous swelling. There is also question of multiple abscesses with asymmetric swelling of the anterior tibialis muscle and possibly the flexor digitorum longus. Evaluation of soft tissues extremely limited with CT. Venous Doppler Study 12/25/17 15:50 IMPRESSION: NO EVIDENCE OF DVT OR SVT IN THE LEFT LEG. Status: Image reviewed by me - CT reviewed by me. No obvious abscesses or fluid collections identified. Assessment & Plan - Diagnosis (1) Diabetes 1.5, managed as type 1 Is this a current diagnosis for this admission?: Yes (2) Cellulitis of left leg Is this a current diagnosis for this admission?: Yes - Plan Summary Plan Summary: This is a 32-year-old female who sustained a cat scratch over 5 days ago. In the interim, she has had significant swelling and pain. I have reviewed the patient's CT scan (films and report). I do not see any obvious fluid collections in the subcutaneous tissue or beneath the fascia of the leg. I cannot find any obvious abscess on physical exam either. I believe the patient has severe cellulitis of the leg. I do not see any indication that she has necrotizing fasciitis. There is no subcutaneous emphysema, bulla, or bruising. I recommend tight glucose control and intravenous antibiotics. The patient should elevate her leg above the level of her heart. I will follow this patient closely with you.
[2017-12-26 06:53] LABS: ABSOLUTE BASOPHILS # (AUTO) 0.1 10^3/uL (0.0-0.2); ABSOLUTE EOSINOPHILS # (AUTO) 0.3 10^3/uL (0.0-0.6); ABSOLUTE LYMPHOCYTES (AUTO) 3.2 10^3/uL (0.5-4.7); ABSOLUTE NEUT (AUTO) 7.1 10^3/uL (1.7-8.2); BASOPHILS % (AUTO) 0.5 % (0-2); EOSINOPHILS % (AUTO) 2.7 % (0-6); HEMOGLOBIN 8.4 g/dL (12.0-15.5); LYMPHOCYTES % (AUTO) 27.2 % (13-45); MEAN CORPUSCULAR HEMOGLOBIN 24.2 pg (27.0-33.4); MEAN CORPUSCULAR HGB CONC 32.4 g/dL (32.0-36.0); MEAN CORPUSCULAR VOLUME 75 fl (80-97); MONOCYTES % (AUTO) 8.7 % (3-13); PLATELET COUNT 448 10^3/uL (150-450); RED BLOOD COUNT 3.49 10^6/uL (3.72-5.28); RED CELL DISTRIBUTION WIDTH 16.6 % (11.5-14.0); SEGMENTED NEUTROPHILS % (AUTO) 60.9 % (42-78); TOTAL CELLS COUNTED % (AUTO) 100 %; WHITE BLOOD COUNT 11.6 10^3/uL (4.0-10.5)
[2017-12-26 08:05] VITALS: BP 107/60
[2017-12-26] MEDS ORDERED: DOCUSATE SODIUM 100 MG CAPSULE PO SCH (10:00)
[2017-12-26] MEDS ORDERED: VANCOMYCIN HCL 750 MG in DEXTROSE 5%-WATER 250 ML IV SCH (12:00)
--- NOTE | 2017-12-26 17:32 | PDOC DISCHARGE SUMMARY ---
General - Admit/Disc Date/PCP Admission Date/Primary Care Provider: 12/25/17 20:45 SHANNON ILEANA Discharge Date: 12/26/17 - Discharge Diagnosis (1) Cellulitis of left leg Is this a current diagnosis for this admission?: Yes (2) Diabetes 1.5, managed as type 1 Is this a current diagnosis for this admission?: Yes (3) MRSA (methicillin resistant staph aureus) culture positive Is this a current diagnosis for this admission?: Yes - Additional Information Resuscitation Status: Full Code Prescriptions: Amox Tr/Potassium Clavulanate [Augmentin 875-125 mg Tablet] 1 tab PO BID #28 tablet Clindamycin HCl [Cleocin HCl] 300 mg PO TID #30 capsule Home Medications: Acetaminophen [Tylenol 325 mg Tablet] 650 mg PO Q4HP PRN tablet 12/26/17 Amox Tr/Potassium Clavulanate [Augmentin 875-125 mg Tablet] 1 tab PO BID #28 tablet 12/26/17 Clindamycin HCl [Cleocin HCl] 300 mg PO TID #30 capsule 12/26/17 History of Present Illness History of Present Illness: Per H&P by Dr. Ortega: ISSA BANEGAS is a 32 year old female with a past medical history of poorly controlled diabetes, MRSA cellulitis and cat scratch 1 week ago resulting in erythema and pain to the left leg. Symptoms prompted evaluation emergency room where she is found to have circumferential erythema, tenderness, edema and a 0.5 cm lesion without exudate. She denies recent antibiotics. She is ordered doxycycline, Zosyn and referred to the hospitalist for admission. Upon evaluation of the patient she has marketed tenderness prompting a CT of the extremity for evaluation of abscess. Hospital Course Hospital Course: The patient was admitted overnight for cellulitis of the left leg related to a cat scratch. She was initially provided IV doxycycline and Zosyn by the emergency department provider. Placed on IV azithromycin and clindamycin. She has a confirmed history of MRSA infection to the same extremity as recent as 4 months ago, therefore IV vancomycin was added for MRSA coverage. Venous Doppler was negative for SVT/DVT. CT of the extremity revealed extensive subcutaneous swelling with questionable areas of multiple abscess formation. MRI follow-up was recommended. Surgery was consulted; they recommended continued IV antibiotics for severe cellulitis of the leg but did not see any indications for surgical interventions at this time. Unfortunately, the patient elected to leave AGAINST MEDICAL ADVICE early this morning. I did have the opportunity to speak with the patient in person and discussed her lab work, CT imaging, and recommendations by multiple providers that she remain inpatient for IV antibiotics. I reviewed the risks of discharging to home with suboptimal therapy to include worsening infection, readmission, loss of limb, and even . Despite this warning, the patient insisted on leaving AGAINST MEDICAL ADVICE. She was provided a prescription for Augmentin and clindamycin for MRSA and Pasteurella coverage. She was strongly advised that she would likely fail outpatient therapy and recommended that she return immediately for any worsening symptoms. She was asked if she needed refills of her diabetic medications which was declined. Physical Exam Vital Signs: Temp Pulse Resp BP Pulse Ox 98.9 F 90 16 107/60 96 12/26/17 07:34 12/26/17 07:34 12/26/17 07:34 12/26/17 07:34 12/26/17 07:34 Intake & Output 12/25/17 12/26/17 12/27/17 06:59 06:59 06:59 Intake Total 550 Balance 550 Additional comments: The patient left AGAINST MEDICAL ADVICE; she declined to allow physical exam prior to leaving. Results Laboratory Results: 12/26/17 06:20 12/26/17 06:20 WBC 11.6 H RBC 3.49 L Hgb 8.4 L Hct 26.0 L MCV 75 L MCH 24.2 L MCHC 32.4 RDW 16.6 H Plt Count 448 Seg Neutrophils % 60.9 Lymphocytes % 27.2 Monocytes % 8.7 Eosinophils % 2.7 Basophils % 0.5 Absolute Neutrophils 7.1 Absolute Lymphocytes 3.2 Absolute Monocytes 1.0 Absolute Eosinophils 0.3 Absolute Basophils 0.1 Impressions: Lower Extremity CT 12/25/17 00:00 IMPRESSION: Extensive subcutaneous swelling. There is also question of multiple abscesses with asymmetric swelling of the anterior tibialis muscle and possibly the flexor digitorum longus. Evaluation of soft tissues extremely limited with CT. Venous Doppler Study 12/25/17 15:50 IMPRESSION: NO EVIDENCE OF DVT OR SVT IN THE LEFT LEG. Qualifiers - * PATIENT BEING DISCHARGED WITH ANY OF THE FOLLOWING DIAGNOSIS: No Plan Discharge Plan: The patient left AGAINST MEDICAL ADVICE. Time Spent: Less than 30 Minutes
== END 2017-12-26 08:55 | disposition left against medical advice (07) | DRG 603 ==
LOC: ER 15:04 → EH 20:45
PROVIDERS: ADMIT Internal Medicine; ATTEND Internal Medicine
DX: L03.116 Cellulitis of left lower limb (principal); E10.65 Type 1 diabetes mellitus with hyperglycemia; B95.62 Methicillin resistant Staphylococcus aureus infection as the cause of diseases classified elsewhere; S80.811A Abrasion, right lower leg, initial encounter; W55.03XA Scratched by cat, initial encounter; Z79.4 Long term (current) use of insulin; Z83.3 Family history of diabetes mellitus; Z88.6 Allergy status to analgesic agent
CPT/HCPCS: 36415; 80053; 82962; 83036; 85025; 87040; 93971; 96365; 96366; 96368; 96375; 99284; J0456; J1644; J1815; J2405; J2543; J3010; J3370; J3490; J7030; J7060

== ENCOUNTER 2017-12-27 23:05 | Inpatient (IN) | payer MEDICAID ==
[2017-12-28] MEDS ORDERED: VANCOMYCIN HCL INJ 1000 MG VIAL IV ONE (01:48)
[2017-12-28] MEDS ORDERED: PIPERACILLIN/TAZOBACTAM 3.375 GM VIAL IV ONE (01:48)
[2017-12-28] MEDS ORDERED: DOXYCYCLINE HYCLATE 100 MG TABLET PO ONE (01:48)
[2017-12-28] MEDS ORDERED: KETOROLAC TROMETHAMINE INJ/PF 30 MG/1 ML SDV IV ONE (01:53)
--- NOTE | 2017-12-28 01:54 | ER Document Report ---
ED General - General Chief Complaint: Cat Bite Stated Complaint: CUT ON LEG Time Seen by Provider: 12/28/17 00:12 Notes: Patient is a 32-year-old female with past medical history of insulin-dependent type 2 diabetes who presents with an ongoing cellulitis of her left lower extremity after being scratched by cat. She was seen in the hospital 3 days ago for the same, admitted but then left AGAINST MEDICAL ADVICE. She has been taking oral antibiotics that were prescribed at time of discharge but notes that this has not shown any significant improvement in her area of cellulitis and she has actually had progression of the area of redness and induration. She describes an associated dull, throbbing, constant pain to the area. Nothing improves or worsens that pain. She denies any fever or constitutional symptoms. She has returned stating that she recognizes that she needs to be rehospitalized as she was having some improvement while on IV antibiotics. TRAVEL OUTSIDE OF THE [place] IN LAST 30 DAYS: No COUNTRY TRAVELED TO/FROM: [place] - Related Data Allergies/Adverse Reactions: hydromorphone HCl [From Dilaudid] Allergy (Severe, Verified 08/01/17 20:26) Anaphylaxis Past Medical History - General Information source: Patient - Social History Smoking Status: Never Smoker Frequency of alcohol use: None Drug Abuse: None Lives with: Family Family History: DM, Hypertension, Other - asthma Endocrine Medical History: Reports: Hx Diabetes Mellitus Type 1, Hx Diabetes Mellitus Type 2 Renal/ Medical History: Denies: Hx Peritoneal Dialysis Infectious Medical History: Reports: Hx MRSA - Clindamycin sensitive Past Surgical History: Reports: Hx Section - x2, Hx Tubal Ligation - Immunizations Immunizations up to date: No Hx Diphtheria, Pertussis, Tetanus Vaccination: No Review of Systems - Review of Systems Notes: Constitutional: Negative for fever. HENT: Negative for sore throat. Eyes: Negative for visual changes. Cardiovascular: Negative for chest pain. Respiratory: Negative for shortness of breath. Gastrointestinal: Negative for abdominal pain, vomiting or diarrhea. Genitourinary: Negative for dysuria. Musculoskeletal: Negative for back pain. Skin: Positive for rash. Neurological: Negative for headaches, weakness or numbness. 10 point ROS negative except as marked above and in HPI. Physical Exam - Vital signs Vitals: Temp Pulse Resp BP Pulse Ox 98.2 F 80 20 112/70 100 12/27/17 23:51 12/27/17 23:51 12/27/17 23:51 12/27/17 23:51 12/27/17 23:51 Interpretation: Normal Notes: PHYSICAL EXAMINATION: GENERAL: Well-appearing, well-nourished and in no acute distress. HEAD: Atraumatic, normocephalic. EYES: Pupils equal round and reactive to light, extraocular movements intact, sclera anicteric, conjunctiva are normal. ENT: nares patent, oropharynx clear without exudates. Moist mucous membranes. NECK: Normal range of motion, supple without lymphadenopathy LUNGS: Breath sounds clear to auscultation bilaterally and equal. No wheezes rales or rhonchi. HEART: Regular rate and rhythm without murmurs ABDOMEN: Soft, nontender, normoactive bowel sounds. No guarding, no rebound. No masses appreciated. EXTREMITIES: Normal range of motion, 3+ pitting edema of the left lower extremity below the level of the knee down to the level of the ankle NEUROLOGICAL: No focal neurological deficits. Moves all extremities spontaneously and on command. PSYCH: Normal mood, normal affect. SKIN: Warm, Dry, normal turgor, extensive cellulitis of the distal left lower extremity below the level of the knee, above the level of the ankle. There is a 0.25 x 0.25 open wound on the proximal tibial surface with purulent surrounding area but no obvious drainage. Course - Re-evaluation Re-evalutation: 12/28/17 01:49 Patient presents with an extensive cellulitis of the left distal lower extremity that has failed to improve on outpatient antibiotics after she left AGAINST MEDICAL ADVICE 48 hours ago. The patient continues to be without fever or constitutional symptoms. Otherwise well in appearance. Vitals within normal limits. Compartments soft, no visible areas of fluctuance although the extremity is diffusely edematous. Will obtain repeat labs, begin IV Zosyn, doxycycline, vancomycin and discussed the hospitalist for readmission. 12/28/17 03:27 Laboratories do show ongoing severe hyperglycemia but no evidence of diabetic ketoacidosis. The patient's leukocytosis trended from her last laboratory assessment several days ago. I discussed with the hospitalist Dr. Ortega who is excepted the patient for readmission. - Vital Signs Vital signs: Temp Pulse Resp BP Pulse Ox 98.2 F 80 20 112/70 100 12/27/17 23:51 12/27/17 23:51 12/27/17 23:51 12/27/17 23:51 12/27/17 23:51 - Laboratory Result Diagrams: 12/28/17 02:25 12/28/17 02:25 Laboratory results interpreted by me: 12/28/17 12/28/17 02:25 02:25 WBC 13.2 H RBC 3.67 L Hgb 8.9 L Hct 27.5 L MCV 75 L MCH 24.4 L RDW 16.7 H Plt Count 558 H Absolute Neutrophils 8.7 H BUN 4 L Glucose 463 H* Discharge - Discharge Clinical Impression: Cellulitis of left leg, Hyperglycemia Condition: Fair Disposition: ADMITTED INPATIENT Admitting Provider: Hospitalist Unit Admitted: Medical Floor Referrals: SHANNON TEJEDA MD [Primary Care Provider] - Follow up as needed
[2017-12-28 02:53] LABS: ABSOLUTE BASOPHILS # (AUTO) 0.1 10^3/uL (0.0-0.2); ABSOLUTE EOSINOPHILS # (AUTO) 0.3 10^3/uL (0.0-0.6); ABSOLUTE LYMPHOCYTES (AUTO) 3.1 10^3/uL (0.5-4.7); ABSOLUTE MONOCYTES (AUTO) 1.1 10^3/uL (0.1-1.4); ABSOLUTE NEUT (AUTO) 8.7 10^3/uL (1.7-8.2); BASOPHILS % (AUTO) 0.6 % (0-2); EOSINOPHILS % (AUTO) 2.2 % (0-6); HEMATOCRIT 27.5 % (36.0-47.0); HEMOGLOBIN 8.9 g/dL (12.0-15.5); LYMPHOCYTES % (AUTO) 23.7 % (13-45); MEAN CORPUSCULAR HEMOGLOBIN 24.4 pg (27.0-33.4); MEAN CORPUSCULAR HGB CONC 32.5 g/dL (32.0-36.0); MEAN CORPUSCULAR VOLUME 75 fl (80-97); PLATELET COUNT 558 10^3/uL (150-450); RED BLOOD COUNT 3.67 10^6/uL (3.72-5.28); RED CELL DISTRIBUTION WIDTH 16.7 % (11.5-14.0); SEGMENTED NEUTROPHILS % (AUTO) 65.5 % (42-78); TOTAL CELLS COUNTED % (AUTO) 100 %; WHITE BLOOD COUNT 13.2 10^3/uL (4.0-10.5)
[2017-12-28 03:02] LABS: ANION GAP 14 (5-19); BLOOD UREA NITROGEN 4 mg/dL (7-20); CALCIUM 9.4 mg/dL (8.4-10.2); CARBON DIOXIDE 26 mmol/L (22-30); CHLORIDE 98 mmol/L (98-107); POTASSIUM 3.8 mmol/L (3.6-5.0); SODIUM 137.8 mmol/L (137-145)
[2017-12-28 03:12] LABS: GLUCOSE 463 mg/dL (75-110)
[2017-12-28] MEDS ORDERED: GLUCAGON,HUMAN RECOMB 1 MG INJ IM PRN (04:08)
[2017-12-28] MEDS ORDERED: MAG HYDROX/AL HYDROX/SIMETH SUSP 30 ML UDCUP PO PRN (04:08)
[2017-12-28] MEDS ORDERED: ZOLPIDEM TARTRATE 5 MG TABLET PO PRN (04:08)
[2017-12-28] MEDS ORDERED: OXYCODONE-ACETAMINOPHEN 5-325 MG TABLET PO PRN (04:08)
[2017-12-28] MEDS ORDERED: DEXTROSE 40% GEL 15 GM TUBE PO PRN ×2 (04:08)
[2017-12-28] MEDS ORDERED: MAGNESIUM HYDROXIDE SUSP 30 ML UDCUP PO PRN (04:08)
[2017-12-28] MEDS ORDERED: IPRATROPIUM/ALBUTEROL 0.5-2.5 MG/3 ML AMPUL NEB PRN (04:08)
[2017-12-28] MEDS ORDERED: ACETAMINOPHEN 325 MG TABLET PO PRN (04:08)
[2017-12-28] MEDS ORDERED: DEXTROSE 50%-WATER 25 GM/50 ML DISP.SYRIN IV PRN ×2 (04:08)
[2017-12-28] MEDS ORDERED: KETOROLAC TROMETHAMINE INJ/PF 30 MG/1 ML SDV IV PRN (04:11)
[2017-12-28] MEDS ORDERED: NORMAL SALINE 1000 ML 1,000 ML IV SCH (04:15)
--- NOTE | 2017-12-28 05:38 | PDOC H&P ---
History of Present Illness Admission Date/PCP: 12/28/17 03:53 Patient complains of: Left leg pain History of Present Illness: ISSA BANEGAS is a 32 year old female with a past medical history of poorly controlled diabetes, MRSA cellulitis and cat scratch 10 days ago resulting in erythema and pain for which she was admitted 48 hours ago but left AMA shortly after admission. She returns with worsening leukocytosis, pain and swelling. Microbiology has not yet returned. She started on vancomycin and Zosyn empirically and referred to the hospitalist for admission. 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 Past Surgical History Past Surgical History: Reports: Section - x2, Tubal Ligation Social History Information Source: Patient, [facility] Records Lives with: Family Smoking Status: Never Smoker Frequency of Alcohol Use: Occasional - vodka. Hx Recreational Drug Use: No Drugs: None Hx Prescription Drug Abuse: No - Advance Directive Resuscitation Status: Full Code Family History Family History: DM, Hypertension, Other - asthma Parental Family History Reviewed: Yes Children Family History Reviewed: Yes Sibling(s) Family History Reviewed.: Yes Medication/Allergy Home Medications: Acetaminophen [Tylenol 325 mg Tablet] 650 mg PO Q4HP PRN tablet 12/26/17 Amox Tr/Potassium Clavulanate [Augmentin 875-125 mg Tablet] 1 tab PO BID #28 tablet 12/26/17 Clindamycin HCl [Cleocin HCl] 300 mg PO TID #30 capsule 12/26/17 Allergies/Adverse Reactions: hydromorphone HCl [From Dilaudid] Allergy (Severe, Verified 08/01/17 20:26) Anaphylaxis Review of Systems Constitutional: ABSENT: chills, fever(s), headache(s), weight gain, weight loss Eyes: ABSENT: visual disturbances Ears: ABSENT: hearing changes Cardiovascular: ABSENT: chest pain, dyspnea on exertion, edema, orthropnea, palpitations Respiratory: ABSENT: cough, hemoptysis Gastrointestinal: ABSENT: abdominal pain, constipation, diarrhea, hematemesis, hematochezia, nausea, vomiting Genitourinary: ABSENT: dysuria, hematuria Musculoskeletal: ABSENT: joint swelling Integumentary: ABSENT: rash, wounds Neurological: ABSENT: abnormal gait, abnormal speech, confusion, dizziness, focal weakness, syncope Psychiatric: ABSENT: anxiety, depression, homidical ideation, suicidal ideation Endocrine: ABSENT: cold intolerance, heat intolerance, polydipsia, polyuria Hematologic/Lymphatic: ABSENT: easy bleeding, easy bruising Physical Exam Vital Signs: Temp Pulse Resp BP Pulse Ox 98.5 F 82 16 121/74 100 12/28/17 04:49 12/28/17 04:49 12/28/17 04:49 12/28/17 04:49 12/28/17 04:49 Intake & Output 12/26/17 12/27/17 12/28/17 11:59 11:59 11:59 Weight 61.235 kg General appearance: PRESENT: cooperative, disheveled, mild distress Head exam: PRESENT: atraumatic, normocephalic Eye exam: PRESENT: conjunctiva pink, EOMI, PERRLA. ABSENT: scleral icterus Ear exam: PRESENT: normal external ear exam Mouth exam: PRESENT: moist, tongue midline Neck exam: ABSENT: carotid bruit, JVD, lymphadenopathy, thyromegaly Respiratory exam: PRESENT: clear to auscultation dillan. ABSENT: rales, rhonchi, wheezes Cardiovascular exam: PRESENT: RRR. ABSENT: diastolic murmur, rubs, systolic murmur Pulses: PRESENT: normal dorsalis pedis pul Vascular exam: PRESENT: normal capillary refill GI/Abdominal exam: PRESENT: normal bowel sounds, soft. ABSENT: distended, guarding, mass, organolmegaly, rebound, tenderness Rectal exam: PRESENT: deferred Extremities exam: PRESENT: joint swelling, pedal edema, +2 edema Neurological exam: PRESENT: alert, awake, oriented to person, oriented to place , oriented to time, oriented to situation, CN II-XII grossly intact. ABSENT: motor sensory deficit Psychiatric exam: PRESENT: appropriate affect, normal mood. ABSENT: homicidal ideation, suicidal ideation Skin exam: PRESENT: erythema, intact - Circumferential erythema with +2 edema of the left leg and foot, no exudate. Assessment & Plan - Diagnosis (1) Diabetes 1.5, managed as type 1 Is this a current diagnosis for this admission?: Yes Plan: Outpatient regiment with sliding scale, follow-up A1c (2) Cellulitis of left leg Is this a current diagnosis for this admission?: Yes Plan: History of MRSA follow-up blood culture, evaluate with MRI given marketed inflammation concerning for subcutaneous abscess. History of MRSA, vancomycin and Zosyn continued, follow-up CBC and culture. Strongly consider surgical evaluation. - Time Time Spent: 50 to 70 Minutes - Inpatient Certification Medical Necessity: Need Close Monitoring Due to Risk of Patient Decompensation
[2017-12-28] MEDS: HEPARIN SOD (PORCINE) 5,000 UNIT/ML 1 ML SYRINGE SUBCUT SCH ×3 (05:52→22:11)
[2017-12-28] MEDS: INSULIN LISPRO 100 UNIT/ML 3 ML VIAL SUBCUT PRN ×2 (06:14→22:12)
[2017-12-28] MEDS ORDERED: INSULIN REG, HUMAN 100 UNIT/ML 3 ML VIAL (PYX) IV ONE (06:45)
[2017-12-28] MEDS ORDERED: ONDANSETRON 4 MG TAB.RAPDIS PO PRN (08:09)
[2017-12-28] MEDS: HUM INSULIN NPH/REG INSULIN HM 100 UNIT/1 ML 3 ML SUBCUT SCH ×2 (09:10→15:28)
[2017-12-28] MEDS: DOCUSATE SODIUM 100 MG CAPSULE PO SCH ×2 (09:33→17:34)
[2017-12-28] MEDS: CLINDAMYCIN 600 MG/D5W RTU 600 MG/50 ML RTUPB IV SCH ×3 (09:33→22:21)
[2017-12-28] MEDS: PIPERACILLIN SODIUM/TAZOBACTAM 3.375 GM in NORMAL SALINE 100 ML IV SCH ×3 (11:29→22:59)
--- NOTE | 2017-12-28 13:21 | PDOC PROGRESS REPORT ---
Subjective Progress Note for:: 12/28/17 Subjective:: The patient is a 32-year-old female with a past medical history of poorly controlled insulin-dependent diabetes mellitus, MRSA infections, and anemia who was admitted overnight for left lower extremity cellulitis secondary to Bite approximately 10 days ago. The patient was seen on morning rounds. She was found resting in bed comfortably on room air. Initially she was sleeping but did wake easily when I said her name. She denies fever, chills, body aches, chest pain, palpitations, abdominal pain, nausea and vomiting. She does not answer me when I asked how her pain is this morning or if she has any other questions or concerns. The patient is known from a previous admission for MRSA cellulitis; during that admission she was also withdrawn and noncommunicative. No concerns per nursing. Reason For Visit: MRSA CELLULITIS DIABETES Physical Exam Vital Signs: Temp Pulse Resp BP Pulse Ox 97.6 F 83 15 98/60 L 100 12/28/17 12:30 12/28/17 12:30 12/28/17 12:30 12/28/17 12:30 12/28/17 12:30 Intake & Output 12/27/17 12/28/17 12/29/17 06:59 06:59 06:59 Intake Total 50 Balance 50 Weight 47.3 kg General appearance: PRESENT: no acute distress, thin, well-developed, well- nourished. ABSENT: cooperative Head exam: PRESENT: atraumatic, normocephalic Eye exam: PRESENT: conjunctiva pink, EOMI, PERRLA. ABSENT: scleral icterus Ear exam: PRESENT: normal external ear exam Mouth exam: PRESENT: moist, tongue midline Neck exam: ABSENT: carotid bruit, JVD, lymphadenopathy, thyromegaly Respiratory exam: PRESENT: clear to auscultation dillan, symmetrical, unlabored. ABSENT: rales, rhonchi, wheezes Cardiovascular exam: PRESENT: RRR, +S1, +S2. ABSENT: diastolic murmur, rubs, systolic murmur Pulses: PRESENT: normal dorsalis pedis pul Vascular exam: PRESENT: normal capillary refill GI/Abdominal exam: PRESENT: normal bowel sounds, soft. ABSENT: distended, guarding, mass, organolmegaly, rebound, tenderness Rectal exam: PRESENT: deferred Extremities exam: PRESENT: full ROM, +2 edema - LLE. ABSENT: calf tenderness, clubbing, pedal edema Neurological exam: PRESENT: alert, awake, oriented to person, oriented to place , oriented to time, oriented to situation, CN II-XII grossly intact. ABSENT: motor sensory deficit Psychiatric exam: PRESENT: flat affect, normal mood. ABSENT: homicidal ideation , suicidal ideation Skin exam: PRESENT: dry, erythema - LLE, warm, other - +2 edema w/ circumfrencial edema to LLE extending from just distal of knee to mid-foot. Two <1 cm bullae noted to anterior lower leg near puncture sites. Two punctures , each ~ 4 mm round and a shallow ulceration ~8mm x2mm to anterior lower leg just distal of knee. No drainage at this time.. ABSENT: cyanosis, rash Assessment & Plan - Diagnosis (1) Cellulitis of left leg Is this a current diagnosis for this admission?: Yes Plan: Secondary to cat scratch/bite. The patient was admitted 2 days ago, but left AMA after receiving one dose each of IV doxycycline, Vancomycin, and Zosyn. She was provided prescriptions for Augmentin and Clindamycin and instructed to return when symptoms worsened as p.o. antibiotics were anticipated to fail. Wound cultures from previous admission are negative at 48 hours. Repeat blood cultures are pending. Wound cultures are ordered; not yet obtained. CT LLE (12/25/17): extensive subcutaneous swelling with possible multiple abscesses. Doppler LLE (12/25/17): negative for SVT/DVT MRI is pending. The patient is admitted to the medical floor. She is provided IV maintenance fluids. Based upon previous culture sensitivities (MRSA with vancomycin BRENDA 2); the patient is empirically placed on IV clindamycin for MRSA and Zosyn for Pasteurella coverage. Analgesics and antiemetics as needed. Keep extremity elevated. Consider surgical consultation. (2) Diabetes mellitus Qualifiers: Diabetes mellitus type: type 2 Diabetes mellitus termite control servicer insulin use: with fdc use Diabetes mellitus complication status: with hyperglycemia Qualified Code(s): E11.65 - Type 2 diabetes mellitus with hyperglycemia; Z79.4 - senior care (current) use of insulin; Z79.4 - termite control representative (current) use of insulin; Z79.4 - termite control representative (current) use of insulin; Z79.4 - senior care (current ) use of insulin Is this a current diagnosis for this admission?: Yes Plan: The patient is placed on a consistent carb diet. She is placed on 70/30; 20 units twice daily with meals with Humalog for sliding scale coverage. Hypoglycemia protocol in place. Will ask the rn diabetes educator and certified registered nurse anesthetist to meet with the patient. (3) Anemia Qualifiers: Anemia type: unspecified type Qualified Code(s): D64.9 - Anemia, unspecified Is this a current diagnosis for this admission?: Yes Plan: Chronic anemia; baseline Hgb 10.0. Currently 8.9. Likely related to nutritional deficiency. Will obtain anemia panel with a.m labs. (4) Leukocytosis Qualifiers: Leukocytosis type: bandemia Qualified Code(s): D72.825 - Bandemia Is this a current diagnosis for this admission?: Yes Plan: Secondary to #1; plan as above. (5) Thrombocytosis Is this a current diagnosis for this admission?: Yes Plan: Secondary to #1; plan as above. Gentle IVF. Heparin for DVT prophylaxis. Encourage mobility. - Time Time Spent with patient: 25-34 minutes Medications reviewed and adjusted accordingly: Yes - Inpatient Certification Based on my medical assessment, after consideration of the patient's comorbidities, presenting symptoms, or acuity I expect that the services needed warrant INPATIENT care.: Yes I certify that my determination is in accordance with my understanding of Medicare's requirements for reasonable and necessary INPATIENT services [42 CFR 412.3e].: Yes Medical Necessity: Failure to Improve With Outpatient Therapy, Need For IV Fluids, Need for IV Antibiotics, Risk of Diagnosis Which Will Require Inpatient Eval/Care/Monitoring
--- NOTE | 2017-12-28 14:11 | RADIOLOGY REPORT (SQ) ---
EXAM DESCRIPTION: MRI LT LOWER EXTREMITY WITHOUT COMPLETED DATE/TIME: 12/28/2017 1:40 pm REASON FOR STUDY: mrsa cellulitis COMPARISON: CT 12/25/2017 TECHNIQUE: Multiplanar imaging of the left tibia and fibula to include fat and fluid sensitive seque nces. LIMITATIONS: None. FINDINGS: BONE MARROW: No marrow signal alteration. Specifically no marrow replacement or marrow ed guicho. No evidence for osteomyelitis. No cortical break through. SOFT TISSUES: Just superficial to the fascia of the anterior proximal to mid tibia of the T1 hypointe nse, T2 hyperintense fluid collection. Superior extent addendum the level of the patellar tendon ins ertion on the tibial tuberosity. Distal aspect is difficult to discern due to the amount of surround ing subcutaneous abnormal stranding-like signal. Fluid collection measures approximately 7 cm TR by 1.3 cm AP. Sinus tract extending to the anerior skin of the mid medial fluid collection. An additio nal small amount of fluid tracks between the subcutaneous fat and posterior vasculature of the mid to lower calf measuring a maximum of 9 mm in AP dimension. Extensive subcutaneous T1 node hypointense, T2 hyperintense stranding. Two separate small foci of increased STIR/T2 signal of the posterior mid and lateral soleus muscle. OTHER: No other significant finding. IMPRESSION: 1. Fluid collection overlying the proximal to mid tibia between the subcutaneous fat and anterior sup erficial fascia with a sinus tract extending to the scan. Findings are highly suspicious for abscess . However, suboptimal without the use of intravenous contrast. 2. A small amount of fluid of the posterior mid to lower calf between the subcutaneous fat and service bar cashier ior calf musculature. Findings may represent abscess versus reactive fluid from cellulitis/edema. 3. Two separate small foci of nonspecific increased STIR/T2 signal of the posterior mid and lateral s oleus muscle. Given the history of infection, underlying myositis is not excluded. 4. Extensive subcutaneous edema versus cellulitis of the calf. No evidence of active osteomyelitis. TECHNICAL DOCUMENTATION: JOB ID: [id number] Machine- All Rights Reserved Reading location - IP/workstation name: [email or web address]
[2017-12-28 23:20] LABS: URINE AMPHETAMINES SCREEN NEGATIVE; URINE BARBITURATES SCREEN NEGATIVE; URINE BENZODIAZEPINES SCREEN NEGATIVE; URINE COCAINE SCREEN NEGATIVE; URINE MARIJUANA (THC) SCREEN NEGATIVE; URINE METHADONE SCREEN NEGATIVE; URINE PHENCYCLIDINE SCREEN NEGATIVE
[2017-12-28] MEDS ORDERED: PROMETHAZINE HCL 25 MG TABLET ONE (23:41)
[2017-12-29] MEDS ORDERED: PROMETHAZINE HCL 25 MG TABLET PO PRN (00:03)
[2017-12-29 05:29] LABS: ABSOLUTE BASOPHILS # (AUTO) 0.2 10^3/uL (0.0-0.2); ABSOLUTE EOSINOPHILS # (AUTO) 0.2 10^3/uL (0.0-0.6); ABSOLUTE LYMPHOCYTES (AUTO) 2.9 10^3/uL (0.5-4.7); ABSOLUTE MONOCYTES (AUTO) 0.9 10^3/uL (0.1-1.4); ABSOLUTE NEUT (AUTO) 11.1 10^3/uL (1.7-8.2); ABSOLUTE RETICS # 0.059 10^6/uL (0.028-0.122); EOSINOPHILS % (AUTO) 1.5 % (0-6); HEMATOCRIT 27.4 % (36.0-47.0); LYMPHOCYTES % (AUTO) 19.1 % (13-45); MEAN CORPUSCULAR HEMOGLOBIN 24.1 pg (27.0-33.4); MEAN CORPUSCULAR HGB CONC 32.7 g/dL (32.0-36.0); MEAN CORPUSCULAR VOLUME 74 fl (80-97); MONOCYTES % (AUTO) 6.1 % (3-13); PLATELET COUNT 631 10^3/uL (150-450); RED BLOOD COUNT 3.72 10^6/uL (3.72-5.28); RED CELL DISTRIBUTION WIDTH 16.8 % (11.5-14.0); RETICULOCYTE COUNT (AUTO) 1.58 % (0.66-2.85); SEGMENTED NEUTROPHILS % (AUTO) 72.3 % (42-78); TOTAL CELLS COUNTED % (AUTO) 100 %; WHITE BLOOD COUNT 15.4 10^3/uL (4.0-10.5)
[2017-12-29 05:48] LABS: ANION GAP 11 (5-19); BLOOD UREA NITROGEN 12 mg/dL (7-20); CALCIUM 8.9 mg/dL (8.4-10.2); CARBON DIOXIDE 26 mmol/L (22-30); CHLORIDE 103 mmol/L (98-107); GLUCOSE 85 mg/dL (75-110); IRON(TIBC) 15.1 ug/dL (37-170); POTASSIUM 3.8 mmol/L (3.6-5.0); SODIUM 140.4 mmol/L (137-145)
[2017-12-29] MEDS: CLINDAMYCIN 600 MG/D5W RTU 600 MG/50 ML RTUPB IV SCH ×3 (06:35→22:32)
[2017-12-29] MEDS: PIPERACILLIN SODIUM/TAZOBACTAM 3.375 GM in NORMAL SALINE 100 ML IV SCH (06:36)
[2017-12-29] MEDS: HEPARIN SOD (PORCINE) 5,000 UNIT/ML 1 ML SYRINGE SUBCUT SCH ×3 (06:37→22:32)
--- NOTE | 2017-12-29 06:55 | PDOC CONSULTATION ---
Consultation Consult reason:: Left leg cellulitis History of Present Illness Admission Date/PCP: 12/28/17 03:53 History of Present Illness: ISSA BANEGAS is a 32 year old female seen at the request of Dr. Ortega, hospitalist. This is a patient who had a cat scratch on the left leg one week ago. She reports that it began swelling. It also became painful and red. The pain became worse to the point where she presented to the emergency department for evaluation. Her blood sugars were found to be almost 500. She is a diabetic. She was admitted to the hospital and started on intravenous antibiotics and blood sugar control. She stayed in the hospital less than 24 hours, and then left AGAINST MEDICAL ADVICE. The patient re-presents to the hospital with increasing swelling and erythema. Her pain is actually improving. She reports nausea, malaise, fevers, chills. She denies chest pain , shortness of breath, dizziness, orthostasis, blurry vision, abdominal pain, melena, hematochezia, hematemesis. 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 Past Surgical History Past Surgical History: Reports: Section - x2, Tubal Ligation Social History Lives with: Family Smoking Status: Never Smoker Frequency of Alcohol Use: Occasional Hx Recreational Drug Use: No Drugs: None Hx Prescription Drug Abuse: No - Advance Directive Resuscitation Status: Full Code Family History Family History: DM, Hypertension, Other - asthma Parental Family History Reviewed: Yes Children Family History Reviewed: Yes Sibling(s) Family History Reviewed.: Yes Medication/Allergy Home Medications: Insulin Glargine,Hum.rec.anlog [Lantus Solostar] 45 unit SQ Q12 12/28/17 Allergies/Adverse Reactions: hydromorphone HCl [From Dilaudid] Allergy (Severe, Verified 08/01/17 20:26) Anaphylaxis Review of Systems Constitutional: PRESENT: chills, fatigue, fever(s), weakness Eyes: ABSENT: visual disturbances Ears: ABSENT: hearing changes Nose, Mouth, and Throat: ABSENT: sore throat Cardiovascular: ABSENT: chest pain, dyspnea on exertion Respiratory: ABSENT: cough, dyspnea Gastrointestinal: PRESENT: nausea. ABSENT: abdominal pain, diarrhea Genitourinary: ABSENT: dysuria Musculoskeletal: ABSENT: back pain Integumentary: PRESENT: erythema - Left lower extremity, wounds - Left lower extremity Neurological: ABSENT: confusion, convulsions, numbness, weakness Psychiatric: ABSENT: anxiety Endocrine: ABSENT: cold intolerance, heat intolerance Hematologic/Lymphatic: ABSENT: easy bleeding, easy bruising Physical Exam Vital Signs: Temp Pulse Resp BP Pulse Ox 99.1 F 98 17 128/73 H 100 12/29/17 00:00 12/29/17 00:00 12/29/17 00:00 12/29/17 00:00 12/29/17 00:00 Intake & Output 12/27/17 12/28/17 12/29/17 06:59 06:59 06:59 Intake Total 1404 Output Total 600 Balance 804 Weight 47.3 kg 60.8 kg General appearance: PRESENT: no acute distress Head exam: PRESENT: atraumatic, normocephalic Eye exam: PRESENT: EOMI, PERRLA. ABSENT: scleral icterus Mouth exam: PRESENT: moist, neck supple Neck exam: ABSENT: meningismus, tenderness, thyromegaly, tracheal deviation Respiratory exam: PRESENT: clear to auscultation dillan, unlabored. ABSENT: tachypnea, wheezes Cardiovascular exam: PRESENT: RRR Pulses: PRESENT: normal radial pulses GI/Abdominal exam: PRESENT: soft. ABSENT: distended, firm, guarding, tenderness Rectal exam: PRESENT: deferred Extremities exam: PRESENT: +2 edema - Left lower extremity, other - Several small wounds to the left anterior lower leg. There is no fluctuance, or purulent drainage. Neurological exam: PRESENT: alert, awake, oriented to person, oriented to place , oriented to time, oriented to situation, CN II-XII grossly intact Psychiatric exam: ABSENT: agitated, anxious Skin exam: PRESENT: erythema - Left lower extremity. ABSENT: cyanosis, jaundice Results Laboratory Results: 12/29/17 05:06 12/29/17 05:06 WBC 15.4 H RBC 3.72 Hgb 9.0 L Hct 27.4 L MCV 74 L MCH 24.1 L MCHC 32.7 RDW 16.8 H Plt Count 631 H Seg Neutrophils % 72.3 Lymphocytes % 19.1 Monocytes % 6.1 Eosinophils % 1.5 Basophils % 1.0 Absolute Neutrophils 11.1 H Absolute Lymphocytes 2.9 Absolute Monocytes 0.9 Absolute Eosinophils 0.2 Absolute Basophils 0.2 Retic Count (auto) 1.58 Absolute Retic 0.059 Impressions: Lower Extremity MRI 12/28/17 00:00 IMPRESSION: 1. Fluid collection overlying the proximal to mid tibia between the subcutaneous fat and anterior superficial fascia with a sinus tract extending to the scan. Findings are highly suspicious for abscess. However, suboptimal without the use of intravenous contrast. 2. A small amount of fluid of the posterior mid to lower calf between the subcutaneous fat and posterior calf musculature. Findings may represent abscess versus reactive fluid from cellulitis/edema. 3. Two separate small foci of nonspecific increased STIR/T2 signal of the posterior mid and lateral soleus muscle. Given the history of infection, underlying myositis is not excluded. 4. Extensive subcutaneous edema versus cellulitis of the calf. No evidence of active osteomyelitis. Assessment & Plan - Diagnosis (1) Cellulitis of left leg Is this a current diagnosis for this admission?: Yes - Plan Summary Plan Summary: This is a 32-year-old female status post cat scratch/bite to the left lower anterior leg. The patient reports that her pain is improving. Her swelling is improved today on exam. I cannot identify any obvious drainable fluid collections. I have reviewed her MRI, and am generally unimpressed. I do not see any evidence of necrotizing fasciitis, drainable abscess, or surgical issue. I have again recommended tight glucose control, elevation of the leg above the level of the heart, and intravenous antibiotics.
[2017-12-29] MEDS: HUM INSULIN NPH/REG INSULIN HM 100 UNIT/1 ML 3 ML SUBCUT SCH ×2 (08:13→16:06)
[2017-12-29] MEDS ORDERED: NORMAL SALINE 1000 ML 1,000 ML IV ONE (08:47)
[2017-12-29] MEDS ORDERED: NORMAL SALINE 1000 ML 1,000 ML IV PRN (08:47)
[2017-12-29] MEDS: DOCUSATE SODIUM 100 MG CAPSULE PO SCH ×2 (09:24→17:33)
[2017-12-29] MEDS: PIPERACILLIN SODIUM/TAZOBACTAM 2.25 GM in NORMAL SALINE 50 ML IV SCH ×2 (11:43→17:26)
[2017-12-29 11:44] LABS: APPEARANCE,URINE SLIGHTLY-CLOUDY; BILIRUBIN,URINE NEGATIVE (NEGATIVE); COLOR,URINE STRAW; GLUCOSE, URINE >=500 mg/dL (NEGATIVE); KETONES,URINE NEGATIVE (NEGATIVE); LEUKOCYTE ESTERASE,URINE TRACE (NEGATIVE); NITRITE,URINE NEGATIVE (NEGATIVE); PROTEIN,URINE NEGATIVE (NEGATIVE); URINE SPECIFIC GRAVITY 1.006; UROBILINOGEN,URINE NEGATIVE mg/dL (<2.0)
[2017-12-29] MEDS ORDERED: PIPERACILLIN SODIUM/TAZOBACTAM 2.25 GM in NORMAL SALINE 100 ML IV SCH (12:00)
[2017-12-29 12:27] LABS: URINE CREATININE 45.6 mg/dL (16-327)
--- NOTE | 2017-12-29 13:40 | PDOC PROGRESS REPORT ---
Subjective Progress Note for:: 12/29/17 Subjective:: The patient is a 32-year-old female with a past medical history of poorly controlled insulin-dependent diabetes mellitus, MRSA infections, and anemia who was admitted overnight for left lower extremity cellulitis secondary to Bite approximately 10 days ago. The patient was seen on afternoon rounds. She was found resting in bed comfortably on room air. She is awake, and initially answers questions with nodding 'yes' or 'no,' she only speaks to tell me that she will not agree to a owod catheter. She denies pain to her LLE and nods 'yes' when asked if she is feeling better today. The patient is known from a previous admission for MRSA cellulitis; during that admission she was also withdrawn and noncommunicative. No concerns per nursing. Reason For Visit: MRSA CELLULITIS DIABETES Physical Exam Vital Signs: Temp Pulse Resp BP Pulse Ox 98.4 F 92 16 111/68 100 12/29/17 07:36 12/29/17 09:44 12/29/17 09:44 12/29/17 07:36 12/29/17 09:44 Intake & Output 12/28/17 12/29/17 12/30/17 06:59 06:59 06:59 Intake Total 1404 1149 Output Total 600 Balance 804 1149 Weight 47.3 kg 60.8 kg General appearance: PRESENT: no acute distress, well-developed, well-nourished. ABSENT: cooperative Head exam: PRESENT: atraumatic, normocephalic Eye exam: PRESENT: conjunctiva pink, EOMI, PERRLA. ABSENT: scleral icterus Ear exam: PRESENT: normal external ear exam Mouth exam: PRESENT: moist, tongue midline Neck exam: ABSENT: carotid bruit, JVD, lymphadenopathy, thyromegaly Respiratory exam: PRESENT: clear to auscultation dillan, symmetrical, unlabored. ABSENT: rales, rhonchi, wheezes Cardiovascular exam: PRESENT: RRR. ABSENT: diastolic murmur, rubs, systolic murmur Pulses: PRESENT: normal dorsalis pedis pul Vascular exam: PRESENT: normal capillary refill GI/Abdominal exam: PRESENT: normal bowel sounds, soft. ABSENT: distended, guarding, mass, organolmegaly, rebound, tenderness Rectal exam: PRESENT: deferred Extremities exam: PRESENT: full ROM, +1 edema - LLE; pitting, decreased from yesterday. ABSENT: calf tenderness, clubbing, pedal edema Neurological exam: PRESENT: alert, awake, oriented to person, oriented to place , oriented to time, oriented to situation, CN II-XII grossly intact. ABSENT: motor sensory deficit Psychiatric exam: PRESENT: flat affect, normal mood. ABSENT: homicidal ideation , suicidal ideation Skin exam: PRESENT: dry, erythema - +1 pitting edema near knee, no edema is present distally. Slight anterior erythema to LLE. Two <1 cm bullae noted to anterior lower leg near puncture sites. Two punctures, each ~ 4 mm round and a shallow ulceration ~8mm x2mm to anterior lower leg just distal of knee. No drainage at this time, warm. ABSENT: cyanosis, intact, rash Results Laboratory Results: 12/29/17 05:06 12/29/17 05:06 12/29/17 12/29/17 12/29/17 05:06 05:06 11:13 WBC 15.4 H RBC 3.72 Hgb 9.0 L Hct 27.4 L MCV 74 L MCH 24.1 L MCHC 32.7 RDW 16.8 H Plt Count 631 H Seg Neutrophils % 72.3 Lymphocytes % 19.1 Monocytes % 6.1 Eosinophils % 1.5 Basophils % 1.0 Absolute Neutrophils 11.1 H Absolute Lymphocytes 2.9 Absolute Monocytes 0.9 Absolute Eosinophils 0.2 Absolute Basophils 0.2 Retic Count (auto) 1.58 Absolute Retic 0.059 Sodium 140.4 Potassium 3.8 Chloride 103 Carbon Dioxide 26 Anion Gap 11 BUN 12 Creatinine 2.02 H Est GFR ( Amer) 35 L Est GFR (Non-Af Amer) 29 L Glucose 85 Calcium 8.9 Iron 15.1 L TIBC 269 % Saturation 6 Ferritin 43.30 Vitamin B12 566.0 Folate 18.80 Urine Color STRAW Urine Appearance SLIGHTLY-CLOUDY Urine pH 5.0 Ur Specific [place] 1.006 Urine Protein NEGATIVE Urine Glucose (UA) >=500 H Urine Ketones NEGATIVE Urine Blood NEGATIVE Urine Nitrite NEGATIVE Ur Leukocyte Esterase TRACE H Urine WBC (Auto) 6 Urine RBC (Auto) 2 Impressions: Lower Extremity MRI 12/28/17 00:00 IMPRESSION: 1. Fluid collection overlying the proximal to mid tibia between the subcutaneous fat and anterior superficial fascia with a sinus tract extending to the scan. Findings are highly suspicious for abscess. However, suboptimal without the use of intravenous contrast. 2. A small amount of fluid of the posterior mid to lower calf between the subcutaneous fat and posterior calf musculature. Findings may represent abscess versus reactive fluid from cellulitis/edema. 3. Two separate small foci of nonspecific increased STIR/T2 signal of the posterior mid and lateral soleus muscle. Given the history of infection, underlying myositis is not excluded. 4. Extensive subcutaneous edema versus cellulitis of the calf. No evidence of active osteomyelitis. Assessment & Plan - Diagnosis (1) Cellulitis of left leg Is this a current diagnosis for this admission?: Yes Plan: Improving; Secondary to cat scratch/bite. The patient was admitted 12/25/17, but left AMA after receiving one dose each of IV doxycycline, Vancomycin, and Zosyn. She was provided prescriptions for Augmentin and Clindamycin and instructed to return when symptoms worsened as p.o. antibiotics were anticipated to fail. Wound cultures from previous admission are negative at 72 hours. Repeat blood cultures are negative at 24 hours. Wound cultures are ordered; not yet obtained - currently no drainage CT LLE (12/25/17): extensive subcutaneous swelling with possible multiple abscesses. Doppler LLE (12/25/17): negative for SVT/DVT MRI reveals possible multiple abscesses with underlying possible myositis with extensive cellulitis and no evidence of osteomyelitis. The patient is admitted to the medical floor. She is provided IV maintenance fluids. Based upon previous culture sensitivities (MRSA with vancomycin BRENDA 2); the patient is empirically placed on IV clindamycin for MRSA and Zosyn for Pasteurella coverage. Zosyn dose is adjusted secondary to development of KIANNA 2/ 2 ATN. Analgesics and antiemetics as needed. Keep extremity elevated. Surgery has been consulted; appreciate their evaluation and recommendations. (2) Acute kidney failure Qualifiers: Acute renal failure type: with acute tubular necrosis Qualified Code(s): N17.0 - Acute kidney failure with tubular necrosis Is this a current diagnosis for this admission?: Yes Plan: The patient was admitted with a creatinine of 0.53 (Baseline); following day creatinine has elevated to 2.02. Nursing did report that the patient had decreased urinary output during the day yesterday, bladder scan revealed approximately 400 mL's. At that time patient was not on strict I&Os and so there was some question as to where her total daily output had been. Urinalysis reveals trace leukoesterase but is otherwise negative for urinary tract infection. Urine tox screen is negative. FeNA = 2.8% The patient adamantly refuses Wood catheter for strict monitoring, she is encouraged to attempt to void every 4 hours to allow for more frequent assessment. She agrees to do so and notify nursing of all voids for accurate measurements. The patient did receive IV vancomycin 1.5 g concurrently with Zosyn in the emergency department on admission. Two days previously she received IV Zosyn only. Urine drug screen is negative for cocaine/amphetamines. The patient is normotensive, no signs of dehydration, not septic, with low suspicion for urinary obstruction. FeNa suggests ATN; most likely related to vancomycin and Zosyn. Continue IVF. Monitor strict I&Os. Follow chemistry closely. Consider renal ultrasound to definitively rule out prerenal causes. Consider nephrology consultation tomorrow if she continues to worsen or develops hyperkalemia. Zosyn is now renally dosed. Toradol has been discontinued. Will avoid all other nephrotoxic medications as able. (3) Diabetes mellitus Qualifiers: Diabetes mellitus type: type 2 Diabetes mellitus lobsterman insulin use: with [facility] use Diabetes mellitus complication status: with hyperglycemia Qualified Code(s): E11.65 - Type 2 diabetes mellitus with hyperglycemia; Z79.4 - [facility]P (current) use of insulin; Z79.4 - USP (current) use of insulin; Z79.4 - laborer marine terminal (current) use of insulin; Z79.4 - laborer marine terminal (current ) use of insulin Is this a current diagnosis for this admission?: Yes Plan: The patient is placed on a consistent carb diet. She is placed on 70/30; 20 units twice daily with meals with Humalog for sliding scale coverage. Hypoglycemia protocol in place. Will ask the certified diabetes educator and endoscopy registered nurse to meet with the patient. (4) Anemia Qualifiers: Anemia type: iron deficiency Iron deficiency anemia type: unspecified iron deficiency Qualified Code(s): D50.9 - Iron deficiency anemia, unspecified Is this a current diagnosis for this admission?: Yes Plan: Chronic iron deficiency anemia secondary to chronic disease (diabetes). Baseline Hgb 10.0. Currently 9.0. Iron 15.1, Ferritin 43 Have started p.o. iron. Consider IV iron prior to discharge once acute cellulitis has improved. The registered dietitian has been consulted. (5) Leukocytosis Qualifiers: Leukocytosis type: bandemia Qualified Code(s): D72.825 - Bandemia Is this a current diagnosis for this admission?: Yes Plan: Secondary to #1; plan as above. (6) Thrombocytosis Is this a current diagnosis for this admission?: Yes Plan: Secondary to #1; plan as above. Continue IVF. Heparin for DVT prophylaxis. Encourage mobility.
[2017-12-29 14:30] LABS: URINE AMPHETAMINES SCREEN NEGATIVE; URINE BARBITURATES SCREEN NEGATIVE; URINE BENZODIAZEPINES SCREEN NEGATIVE; URINE COCAINE SCREEN NEGATIVE; URINE MARIJUANA (THC) SCREEN NEGATIVE; URINE PHENCYCLIDINE SCREEN NEGATIVE
[2017-12-29 14:35] LABS: URINE METHADONE SCREEN NEGATIVE
[2017-12-29 16:06] LABS: ANION GAP 14 (5-19); BLOOD UREA NITROGEN 12 mg/dL (7-20); CALCIUM 8.5 mg/dL (8.4-10.2); CARBON DIOXIDE 23 mmol/L (22-30); CHLORIDE 104 mmol/L (98-107); GLUCOSE 115 mg/dL (75-110); POTASSIUM 3.8 mmol/L (3.6-5.0); SODIUM 141.2 mmol/L (137-145)
[2017-12-29] MEDS: FERROUS SULFATE 325 MG TABLET PO SCH (17:26)
--- NOTE | 2017-12-29 18:32 | RADIOLOGY REPORT (SQ) ---
EXAM DESCRIPTION: U/S RETROPERITON (RENAL/AORTA) COMPLETED DATE/TIME: 12/29/2017 6:24 pm REASON FOR STUDY: KIANNA COMPARISON: None. TECHNIQUE: Dynamic and static grayscale images acquired of the kidneys and bladder and recorded on P ACS. Additional selected color Doppler and spectral images recorded. LIMITATIONS: None. FINDINGS: RIGHT KIDNEY: Normal size. Normal echogenicity. No solid or suspicious masses. No hydronep hrosis. No calcifications. LEFT KIDNEY: Normal size. Normal echogenicity. No solid or suspicious masses. No hydronephrosis. No calcifications. BLADDER: No masses. OTHER FINDINGS: No other significant finding. IMPRESSION: NORMAL RENAL AND BLADDER ULTRASOUND. TECHNICAL DOCUMENTATION: JOB ID: [id number] [employer]- All Rights Reserved Reading location - IP/workstation name: [email or web address]
[2017-12-30] MEDS: PIPERACILLIN SODIUM/TAZOBACTAM 2.25 GM in NORMAL SALINE 50 ML IV SCH ×3 (00:05→21:27)
[2017-12-30 06:34] LABS: ABSOLUTE BASOPHILS # (AUTO) 0.1 10^3/uL (0.0-0.2); ABSOLUTE EOSINOPHILS # (AUTO) 0.1 10^3/uL (0.0-0.6); ABSOLUTE LYMPHOCYTES (AUTO) 2.4 10^3/uL (0.5-4.7); ABSOLUTE MONOCYTES (AUTO) 0.7 10^3/uL (0.1-1.4); ABSOLUTE NEUT (AUTO) 7.7 10^3/uL (1.7-8.2); BASOPHILS % (AUTO) 0.9 % (0-2); EOSINOPHILS % (AUTO) 1.2 % (0-6); HEMOGLOBIN 8.6 g/dL (12.0-15.5); LYMPHOCYTES % (AUTO) 21.8 % (13-45); MEAN CORPUSCULAR HEMOGLOBIN 23.9 pg (27.0-33.4); MEAN CORPUSCULAR HGB CONC 32.9 g/dL (32.0-36.0); MEAN CORPUSCULAR VOLUME 73 fl (80-97); MONOCYTES % (AUTO) 6.4 % (3-13); PLATELET COUNT 490 10^3/uL (150-450); RED BLOOD COUNT 3.58 10^6/uL (3.72-5.28); RED CELL DISTRIBUTION WIDTH 16.7 % (11.5-14.0); SEGMENTED NEUTROPHILS % (AUTO) 69.7 % (42-78); TOTAL CELLS COUNTED % (AUTO) 100 %
[2017-12-30] MEDS: HEPARIN SOD (PORCINE) 5,000 UNIT/ML 1 ML SYRINGE SUBCUT SCH ×3 (06:37→21:57)
[2017-12-30] MEDS: CLINDAMYCIN 600 MG/D5W RTU 600 MG/50 ML RTUPB IV SCH (06:37)
[2017-12-30 06:58] LABS: ANION GAP 17 (5-19); BLOOD UREA NITROGEN 13 mg/dL (7-20); CALCIUM 8.4 mg/dL (8.4-10.2); CARBON DIOXIDE 21 mmol/L (22-30); CHLORIDE 105 mmol/L (98-107); GLUCOSE 133 mg/dL (75-110); POTASSIUM 3.7 mmol/L (3.6-5.0); SODIUM 142.5 mmol/L (137-145)
[2017-12-30] MEDS: HUM INSULIN NPH/REG INSULIN HM 100 UNIT/1 ML 3 ML SUBCUT SCH ×2 (08:36→17:35)
[2017-12-30] MEDS: DOCUSATE SODIUM 100 MG CAPSULE PO SCH ×2 (09:18→17:34)
[2017-12-30] MEDS: FERROUS SULFATE 325 MG TABLET PO SCH ×2 (09:20→17:41)
--- NOTE | 2017-12-30 10:21 | PDOC PROGRESS REPORT ---
Subjective Progress Note for:: 12/30/17 Subjective:: No complaints Reason For Visit: MRSA CELLULITIS DIABETES Physical Exam Vital Signs: Temp Pulse Resp BP Pulse Ox 98.6 F 91 12 130/76 H 100 12/30/17 07:38 12/30/17 07:38 12/30/17 07:38 12/30/17 07:38 12/30/17 07:38 Intake & Output 12/29/17 12/30/17 12/31/17 06:59 06:59 06:59 Intake Total 1404 2181 100 Output Total 600 2250 Balance 804 -69 100 Weight 60.8 kg 61.5 kg Musculoskeletal exam: PRESENT: other - Left lower extremity examined. Cellulitis and erythema subsiding; acute wound appears to have eschared over; unable to express any pus Results Laboratory Results: 12/30/17 06:01 12/30/17 06:01 12/29/17 12/29/17 12/29/17 11:13 11:13 15:10 WBC RBC Hgb Hct MCV MCH MCHC RDW Plt Count Seg Neutrophils % Lymphocytes % Monocytes % Eosinophils % Basophils % Absolute Neutrophils Absolute Lymphocytes Absolute Monocytes Absolute Eosinophils Absolute Basophils Sodium 141.2 Potassium 3.8 Chloride 104 Carbon Dioxide 23 Anion Gap 14 BUN 12 Creatinine 2.40 H Est GFR ( Amer) 28 L Est GFR (Non-Af Amer) 24 L Glucose 115 H Calcium 8.5 Urine Color STRAW Urine Appearance SLIGHTLY-CLOUDY Urine pH 5.0 Ur Specific [place] 1.006 Urine Protein NEGATIVE Urine Glucose (UA) >=500 H Urine Ketones NEGATIVE Urine Blood NEGATIVE Urine Nitrite NEGATIVE Ur Leukocyte Esterase TRACE H Urine WBC (Auto) 6 Urine RBC (Auto) 2 Urine Osmolality 433 12/30/17 12/30/17 06:01 06:01 WBC 11.0 H RBC 3.58 L Hgb 8.6 L Hct 26.0 L MCV 73 L MCH 23.9 L MCHC 32.9 RDW 16.7 H Plt Count 490 H Seg Neutrophils % 69.7 Lymphocytes % 21.8 Monocytes % 6.4 Eosinophils % 1.2 Basophils % 0.9 Absolute Neutrophils 7.7 Absolute Lymphocytes 2.4 Absolute Monocytes 0.7 Absolute Eosinophils 0.1 Absolute Basophils 0.1 Sodium 142.5 Potassium 3.7 Chloride 105 Carbon Dioxide 21 L Anion Gap 17 BUN 13 Creatinine 1.96 H Est GFR ( Amer) 36 L Est GFR (Non-Af Amer) 30 L Glucose 133 H Calcium 8.4 Urine Color Urine Appearance Urine pH Ur Specific West[place] Urine Protein Urine Glucose (UA) Urine Ketones Urine Blood Urine Nitrite Ur Leukocyte Esterase Urine WBC (Auto) Urine RBC (Auto) Urine Osmolality Impressions: Lower Extremity MRI 12/28/17 00:00 IMPRESSION: 1. Fluid collection overlying the proximal to mid tibia between the subcutaneous fat and anterior superficial fascia with a sinus tract extending to the scan. Findings are highly suspicious for abscess. However, suboptimal without the use of intravenous contrast. 2. A small amount of fluid of the posterior mid to lower calf between the subcutaneous fat and posterior calf musculature. Findings may represent abscess versus reactive fluid from cellulitis/edema. 3. Two separate small foci of nonspecific increased STIR/T2 signal of the posterior mid and lateral soleus muscle. Given the history of infection, underlying myositis is not excluded. 4. Extensive subcutaneous edema versus cellulitis of the calf. No evidence of active osteomyelitis. Renal Ultrasound 12/29/17 00:00 IMPRESSION: NORMAL RENAL AND BLADDER ULTRASOUND. Assessment & Plan - Diagnosis (1) Cellulitis of left leg Is this a current diagnosis for this admission?: Yes Plan: Impression: Clinically improved left lower extremity cellulitis and entry wound ; no indication for surgical debridement Recommendations: 1. Continue local wound care 2. Continue intravenous antibiotic therapy; convert to p.o. when sepsis resolved 3. We will sign off; reconsult as needed.
[2017-12-30] MEDS: AMOXICILLIN TR/POT CLAVULANATE 500-125 MG TAB PO SCH ×2 (14:58→21:57)
--- NOTE | 2017-12-30 15:59 | PDOC PROGRESS REPORT ---
Subjective Progress Note for:: 12/30/17 Subjective:: The patient is a 32-year-old female with a past medical history of poorly controlled insulin-dependent diabetes mellitus, MRSA infections, and anemia who was admitted overnight for left lower extremity cellulitis secondary to Bite approximately 10 days ago. The patient was seen on afternoon rounds. She was found resting in bed comfortably on room air. She tells me that she is feeling better today; she denies fever, chills, body aches, chest pain, dyspnea, abdominal pain. She reports that her pain is well-controlled. She has no questions or concerns. No concerns per nursing. Reason For Visit: MRSA CELLULITIS DIABETES Physical Exam Vital Signs: Temp Pulse Resp BP Pulse Ox 98.6 F 91 16 130/76 H 100 12/30/17 07:38 12/30/17 09:20 12/30/17 09:20 12/30/17 07:38 12/30/17 09:20 Intake & Output 12/29/17 12/30/17 12/31/17 06:59 06:59 06:59 Intake Total 1404 2181 100 Output Total 600 2250 Balance 804 -69 100 Weight 60.8 kg 61.5 kg General appearance: PRESENT: no acute distress, well-developed, well-nourished Head exam: PRESENT: atraumatic, normocephalic Eye exam: PRESENT: conjunctiva pink, EOMI, PERRLA. ABSENT: scleral icterus Ear exam: PRESENT: normal external ear exam Mouth exam: PRESENT: moist, tongue midline Neck exam: ABSENT: carotid bruit, JVD, lymphadenopathy, thyromegaly Respiratory exam: PRESENT: clear to auscultation dillan. ABSENT: rales, rhonchi, wheezes Cardiovascular exam: PRESENT: RRR. ABSENT: diastolic murmur, rubs, systolic murmur Pulses: PRESENT: normal dorsalis pedis pul Vascular exam: PRESENT: normal capillary refill GI/Abdominal exam: PRESENT: normal bowel sounds, soft. ABSENT: distended, guarding, mass, organolmegaly, rebound, tenderness Rectal exam: PRESENT: deferred Extremities exam: PRESENT: full ROM, other - trace edmea to anterior left lower leg just distal to knee at site of cellulitis. ABSENT: calf tenderness, clubbing Musculoskeletal exam: PRESENT: ambulatory Neurological exam: PRESENT: alert, awake, oriented to person, oriented to place , oriented to time, oriented to situation, CN II-XII grossly intact. ABSENT: motor sensory deficit Psychiatric exam: PRESENT: flat affect, normal mood. ABSENT: homicidal ideation , suicidal ideation Skin exam: PRESENT: dry, erythema - anterior left lower leg just distal to knee ; two punctures, each ~ 4 mm round and a linear crusted wound ~8mm x2mm. No drainage present., warm. ABSENT: cyanosis, rash Results Laboratory Results: 12/30/17 06:01 12/30/17 06:01 12/29/17 12/30/17 12/30/17 15:10 06:01 06:01 WBC 11.0 H RBC 3.58 L Hgb 8.6 L Hct 26.0 L MCV 73 L MCH 23.9 L MCHC 32.9 RDW 16.7 H Plt Count 490 H Seg Neutrophils % 69.7 Lymphocytes % 21.8 Monocytes % 6.4 Eosinophils % 1.2 Basophils % 0.9 Absolute Neutrophils 7.7 Absolute Lymphocytes 2.4 Absolute Monocytes 0.7 Absolute Eosinophils 0.1 Absolute Basophils 0.1 Sodium 141.2 142.5 Potassium 3.8 3.7 Chloride 104 105 Carbon Dioxide 23 21 L Anion Gap 14 17 BUN 12 13 Creatinine 2.40 H 1.96 H Est GFR ( Amer) 28 L 36 L Est GFR (Non-Af Amer) 24 L 30 L Glucose 115 H 133 H Calcium 8.5 8.4 Impressions: Lower Extremity MRI 12/28/17 00:00 IMPRESSION: 1. Fluid collection overlying the proximal to mid tibia between the subcutaneous fat and anterior superficial fascia with a sinus tract extending to the scan. Findings are highly suspicious for abscess. However, suboptimal without the use of intravenous contrast. 2. A small amount of fluid of the posterior mid to lower calf between the subcutaneous fat and posterior calf musculature. Findings may represent abscess versus reactive fluid from cellulitis/edema. 3. Two separate small foci of nonspecific increased STIR/T2 signal of the posterior mid and lateral soleus muscle. Given the history of infection, underlying myositis is not excluded. 4. Extensive subcutaneous edema versus cellulitis of the calf. No evidence of active osteomyelitis. Renal Ultrasound 12/29/17 00:00 IMPRESSION: NORMAL RENAL AND BLADDER ULTRASOUND. Assessment & Plan - Diagnosis (1) Cellulitis of left leg Is this a current diagnosis for this admission?: Yes Plan: Continues improving; Secondary to cat scratch/bite. The patient was admitted 12/25/17, but left AMA after receiving one dose each of IV doxycycline, Vancomycin, and Zosyn. She was provided prescriptions for Augmentin and Clindamycin and instructed to return when symptoms worsened as p.o. antibiotics were anticipated to fail. Wound cultures from previous admission are negative at 4 days Repeat blood cultures are negative at 48 hours. Wound cultures are ordered; not yet obtained - currently no drainage CT LLE (12/25/17): extensive subcutaneous swelling with possible multiple abscesses. Doppler LLE (12/25/17): negative for SVT/DVT MRI reveals possible multiple abscesses with underlying possible myositis with extensive cellulitis and no evidence of osteomyelitis. The patient is admitted to the medical floor. She is provided IV maintenance fluids. Based upon previous culture sensitivities (MRSA with vancomycin BRENDA 2); the patient was empirically placed on IV clindamycin for MRSA and Zosyn for Pasteurella coverage. Will transition to oral abx in anticipation of possible discharge tomorrow: po clindamycin and augmentin Analgesics and antiemetics as needed. Keep extremity elevated. Surgery has been consulted; appreciate their evaluation and recommendations. (2) Acute kidney failure Qualifiers: Acute renal failure type: with acute tubular necrosis Qualified Code(s): N17.0 - Acute kidney failure with tubular necrosis Is this a current diagnosis for this admission?: Yes Plan: Improving; creatinine now trending down. The patient was admitted with a creatinine of 0.53 (Baseline); following day creatinine has elevated to 2.02. Urinalysis reveals trace leukoesterase but is otherwise negative for urinary tract infection. Urine tox screen is negative. FeNA = 2.8% Renal ultrasound is benign. The patient adamantly refuses Jacob catheter for strict monitoring, she is encouraged to attempt to void every 4 hours to allow for more frequent assessment. She agrees to do so and notify nursing of all voids for accurate measurements. The patient did receive IV vancomycin 1.5 g concurrently with Zosyn in the emergency department on admission. Two days previously she received IV Zosyn only. Urine drug screen is negative for cocaine/amphetamines. The patient is normotensive, no signs of dehydration, not septic, with low suspicion for urinary obstruction. FeNa suggests ATN; most likely related to vancomycin and Zosyn. Continue IVF. Monitor strict I&Os. Follow chemistry closely. Consider nephrology consultation tomorrow if she continues to worsen or develops hyperkalemia. Vancomycin, Zosyn, and Toradol have all been discontinued. Will avoid all other nephrotoxic medications as able. (3) Diabetes mellitus Qualifiers: Diabetes mellitus type: type 2 Diabetes mellitus medical terminologist insulin use: with medical terminologist use Diabetes mellitus complication status: with hyperglycemia Qualified Code(s): E11.65 - Type 2 diabetes mellitus with hyperglycemia; Z79.4 - long-term (current) use of insulin; Z79.4 - long-term (current) use of insulin; Z79.4 - terminal computer operator (current) use of insulin; Z79.4 - terminal computer operator (current ) use of insulin Is this a current diagnosis for this admission?: Yes Plan: The patient is placed on a consistent carb diet. She is placed on 70/30; 20 units twice daily with meals with Humalog for sliding scale coverage. Hypoglycemia protocol in place. Will ask the environmental educator and registered nurse fetal to meet with the patient. The patient requests prescription for 70/30 at discharge; hopefully it will be more affordable than her Lantus. We did discuss the importance of eating at time of administration of this medication. The patient does confirm that she is able to eat on a regular schedule and will not skip meals when taking 70/30. (4) Anemia Qualifiers: Anemia type: iron deficiency Iron deficiency anemia type: unspecified iron deficiency Qualified Code(s): D50.9 - Iron deficiency anemia, unspecified Is this a current diagnosis for this admission?: Yes Plan: Chronic iron deficiency anemia secondary to chronic disease (diabetes). Baseline Hgb 10.0. Currently 9.0. Iron 15.1, Ferritin 43 Have started p.o. iron. Consider IV iron prior to discharge once acute cellulitis has improved. The registered dietitian has been consulted. (5) Leukocytosis Qualifiers: Leukocytosis type: bandemia Qualified Code(s): D72.825 - Bandemia Is this a current diagnosis for this admission?: Yes Plan: Secondary to #1; trending down. Plan as above. (6) Thrombocytosis Is this a current diagnosis for this admission?: Yes Plan: Secondary to #1; trending down. Plan as above. Continue IVF. Heparin for DVT prophylaxis. Encourage mobility. - Time Time Spent with patient: Less than 15 minutes Medications reviewed and adjusted accordingly: Yes Anticipated discharge: Home Within: within 48 hours - Within the next 1-2 days if creatinine declines to acceptable levels; due to poor patient compliance/follow-up, recommend near- normal levels at discharge.
[2017-12-30] MEDS: CLINDAMYCIN HCL 150 MG CAPSULE PO SCH ×2 (17:41→22:59)
[2017-12-30] MEDS: INSULIN LISPRO 100 UNIT/ML 3 ML VIAL SUBCUT PRN (22:58)
[2017-12-31 05:40] LABS: ABSOLUTE BASOPHILS # (AUTO) 0.1 10^3/uL (0.0-0.2); ABSOLUTE EOSINOPHILS # (AUTO) 0.5 10^3/uL (0.0-0.6); ABSOLUTE LYMPHOCYTES (AUTO) 2.4 10^3/uL (0.5-4.7); ABSOLUTE MONOCYTES (AUTO) 0.6 10^3/uL (0.1-1.4); ABSOLUTE NEUT (AUTO) 5.6 10^3/uL (1.7-8.2); BASOPHILS % (AUTO) 0.7 % (0-2); EOSINOPHILS % (AUTO) 5.8 % (0-6); HEMATOCRIT 27.6 % (36.0-47.0); HEMOGLOBIN 9.2 g/dL (12.0-15.5); LYMPHOCYTES % (AUTO) 26.7 % (13-45); MEAN CORPUSCULAR HEMOGLOBIN 24.6 pg (27.0-33.4); MEAN CORPUSCULAR HGB CONC 33.5 g/dL (32.0-36.0); MEAN CORPUSCULAR VOLUME 74 fl (80-97); MONOCYTES % (AUTO) 6.1 % (3-13); PLATELET COUNT 641 10^3/uL (150-450); RED BLOOD COUNT 3.76 10^6/uL (3.72-5.28); SEGMENTED NEUTROPHILS % (AUTO) 60.7 % (42-78); TOTAL CELLS COUNTED % (AUTO) 100 %; WHITE BLOOD COUNT 9.1 10^3/uL (4.0-10.5)
[2017-12-31 05:56] LABS: ANION GAP 19 (5-19); BLOOD UREA NITROGEN 12 mg/dL (7-20); CALCIUM 8.8 mg/dL (8.4-10.2); CARBON DIOXIDE 24 mmol/L (22-30); CHLORIDE 99 mmol/L (98-107); GLUCOSE 142 mg/dL (75-110); POTASSIUM 3.5 mmol/L (3.6-5.0); SODIUM 141.9 mmol/L (137-145)
[2017-12-31] MEDS: HEPARIN SOD (PORCINE) 5,000 UNIT/ML 1 ML SYRINGE SUBCUT SCH ×3 (06:31→22:13)
[2017-12-31] MEDS: CLINDAMYCIN HCL 150 MG CAPSULE PO SCH ×4 (06:31→23:51)
[2017-12-31] MEDS: AMOXICILLIN TR/POT CLAVULANATE 500-125 MG TAB PO SCH ×3 (06:31→22:12)
[2017-12-31] MEDS: FERROUS SULFATE 325 MG TABLET PO SCH ×2 (08:48→17:30)
[2017-12-31] MEDS: HUM INSULIN NPH/REG INSULIN HM 100 UNIT/1 ML 3 ML SUBCUT SCH ×2 (08:48→17:30)
[2017-12-31] MEDS: DOCUSATE SODIUM 100 MG CAPSULE PO SCH ×2 (10:32→17:30)
[2017-12-31] MEDS: INSULIN LISPRO 100 UNIT/ML 3 ML VIAL SUBCUT PRN (23:51)
[2018-01-01 04:34] LABS: ALANINE AMINOTRANSFERASE 11 U/L (9-52); ALBUMIN 3.3 g/dL (3.5-5.0); ALKALINE PHOSPHATASE 67 U/L (38-126); ANION GAP 9 (5-19); ASPARTATE AMINO TRANSFERASE 31 U/L (14-36); BILIRUBIN,DIRECT 0.4 mg/dL (0.0-0.4); BILIRUBIN,TOTAL 0.4 mg/dL (0.2-1.3); BLOOD UREA NITROGEN 10 mg/dL (7-20); CALCIUM 8.4 mg/dL (8.4-10.2); CARBON DIOXIDE 32 mmol/L (22-30); CHLORIDE 98 mmol/L (98-107); GLUCOSE 197 mg/dL (75-110); POTASSIUM 3.6 mmol/L (3.6-5.0); SODIUM 138.6 mmol/L (137-145); TOTAL PROTEIN 8.1 g/dL (6.3-8.2)
[2018-01-01] MEDS: AMOXICILLIN TR/POT CLAVULANATE 500-125 MG TAB PO SCH (06:39)
[2018-01-01] MEDS: HEPARIN SOD (PORCINE) 5,000 UNIT/ML 1 ML SYRINGE SUBCUT SCH (06:39)
[2018-01-01] MEDS: CLINDAMYCIN HCL 150 MG CAPSULE PO SCH (06:39)
[2018-01-01] MEDS: FERROUS SULFATE 325 MG TABLET PO SCH (10:54)
[2018-01-01] MEDS: HUM INSULIN NPH/REG INSULIN HM 100 UNIT/1 ML 3 ML SUBCUT SCH (10:54)
[2018-01-01] MEDS: DOCUSATE SODIUM 100 MG CAPSULE PO SCH (10:55)
[2018-01-01 11:16] VITALS: BP 144/59
[2018-01-01] MEDS ORDERED: AMOXICILLIN TR/POT CLAVULANATE 500-125 MG TAB PO ONE (11:30)
[2018-01-01] MEDS ORDERED: CLINDAMYCIN HCL 150 MG CAPSULE PO ONE (12:00)
--- NOTE | 2018-01-08 20:02 | PDOC DISCHARGE SUMMARY ---
General - Admit/Disc Date/PCP Admission Date/Primary Care Provider: 12/28/17 03:53 Discharge Date: 01/01/18 - Discharge Diagnosis (1) Cellulitis of left leg Is this a current diagnosis for this admission?: Yes (2) Diabetes mellitus Is this a current diagnosis for this admission?: Yes (3) Acute kidney failure Is this a current diagnosis for this admission?: Yes (4) Anemia Is this a current diagnosis for this admission?: Yes (5) Leukocytosis Is this a current diagnosis for this admission?: Yes (6) Thrombocytosis Is this a current diagnosis for this admission?: Yes - Additional Information Resuscitation Status: Full Code Discharge Diet: As Tolerated, Regular Discharge Activity: Activity As Tolerated Prescriptions: Amox Tr/Potassium Clavulanate [Augmentin "500" Tablet] 1 tab PO Q8 #21 tablet Clindamycin HCl [Cleocin 150 mg Capsule] 300 mg PO Q6 #12 capsule Insulin Aspart [Novolog Flexpen] 0 unit SUBCUT .SLD SCALE #1 pen Home Medications: Insulin Glargine,Hum.rec.anlog [Lantus Solostar] 45 unit SQ Q12 12/28/17 Amox Tr/Potassium Clavulanate [Augmentin "500" Tablet] 1 tab PO Q8 #21 tablet 01/01/18 Clindamycin HCl [Cleocin 150 mg Capsule] 300 mg PO Q6 #12 capsule 01/01/18 Insulin Aspart [Novolog Flexpen] 0 unit SUBCUT .SLD SCALE #1 pen 01/01/18 History of Present Illness History of Present Illness: Per Dr. Eldon Ortega: ISSA BANEGAS is a 32 year old female with a past medical history of poorly controlled diabetes, MRSA cellulitis and cat scratch 10 days ago resulting in erythema and pain for which she was admitted 48 hours ago but left AMA shortly after admission. She returns with worsening leukocytosis, pain and swelling. Microbiology has not yet returned. She started on vancomycin and Zosyn empirically and referred to the hospitalist for admission. Hospital Course Hospital Course: 32 y.o. F admitted for cellulitis secondary to cat scratch/bite. The patient was admitted 12/25/17, but left AMA after receiving one dose each of IV doxycycline, Vancomycin, and Zosyn. She was provided prescriptions for Augmentin and Clindamycin and instructed to return when symptoms worsened as p.o. antibiotics were anticipated to fail. The patient was admitted to the medical floor. She was provided IV maintenance fluids. Based upon previous culture sensitivities (MRSA with vancomycin BRENDA 2); the patient was empirically placed on IV clindamycin for MRSA and Zosyn for Pasteurella coverage. Wound cultures from previous admission were negative. Repeat blood cultures during this admission were negative. CT LLE (12/25/17): extensive subcutaneous swelling with possible multiple abscesses. Doppler LLE (12/25/17): negative for SVT/DVT. MRI reveals possible multiple abscesses with underlying possible myositis with extensive cellulitis and no evidence of osteomyelitis. She was transitioned to oral antibiotics, clindamycin and augmentin, prior to discharge. In addition to cellulitis, the patient was treated for an acute kidney injury. The patient was admitted with a creatinine of 0.53 (Baseline); following day creatinine has elevated to 2.02. FeNA = 2.8%. UTOX negative. Renal US negative. The patient did receive IV vancomycin 1.5 g concurrently with Zosyn in the emergency department on admission. Two days previously she received IV Zosyn only. Urine drug screen is negative for cocaine/amphetamines. The patient is normotensive, no signs of dehydration, not septic, with low suspicion for urinary obstruction. FeNa suggests ATN; most likely related to vancomycin and Zosyn. The patient was treated with maintenance IVF and her creatinine returned to normal limits prior to discharge. The patient reported noncompliance with her Lantus because she 'could not afford it' despite having Medicaid insurance. The patient was originally asking for 70/30, but ended up requesting Humalog because she would not always be able to eat at the time of administration of 70/30. Verified with discharge planning that rapid acting insulin was covered by her insurance, and it is. Discharge instructions were thoroughly explained to the patient, particularly the importance of completing her antibiotic regimen and remaining compliant with her diabetes management. She stated understanding. Of note, nursing staff reported they attempted to administer PO antibiotics to patient prior to her discharge. The patient promptly spit out the tablets in the trash can (in front of the nurse) and left the hospital with her paperwork and prescriptions. For any further information, please refer to the EMR. Physical Exam Vital Signs: Temp Pulse Resp BP Pulse Ox 99.2 F 94 17 144/59 H 100 01/01/18 11:11 01/01/18 11:11 01/01/18 11:11 01/01/18 11:11 01/01/18 11:11 Results Laboratory Results: 12/31/17 05:00 01/01/18 03:56 Impressions: Lower Extremity MRI 12/28/17 00:00 IMPRESSION: 1. Fluid collection overlying the proximal to mid tibia between the subcutaneous fat and anterior superficial fascia with a sinus tract extending to the scan. Findings are highly suspicious for abscess. However, suboptimal without the use of intravenous contrast. 2. A small amount of fluid of the posterior mid to lower calf between the subcutaneous fat and posterior calf musculature. Findings may represent abscess versus reactive fluid from cellulitis/edema. 3. Two separate small foci of nonspecific increased STIR/T2 signal of the posterior mid and lateral soleus muscle. Given the history of infection, underlying myositis is not excluded. 4. Extensive subcutaneous edema versus cellulitis of the calf. No evidence of active osteomyelitis. Renal Ultrasound 12/29/17 00:00 IMPRESSION: NORMAL RENAL AND BLADDER ULTRASOUND. Status: Imported from PACS Qualifiers - * PATIENT BEING DISCHARGED WITH ANY OF THE FOLLOWING DIAGNOSIS: No Plan Time Spent: Less than 30 Minutes
== END 2018-01-01 11:58 | disposition home or self-care (01) | DRG 602 ==
LOC: ER 23:05 → EH 12-28 03:53 → 5 12-28 05:45
PROVIDERS: ADMIT Internal Medicine; ATTEND Internal Medicine
DX: L03.116 Cellulitis of left lower limb (principal); N17.0 Acute kidney failure with tubular necrosis; D72.829 Elevated white blood cell count, unspecified; D47.3 Essential (hemorrhagic) thrombocythemia; E11.65 Type 2 diabetes mellitus with hyperglycemia; D63.8 Anemia in other chronic diseases classified elsewhere; W55.03XA Scratched by cat, initial encounter; Y93.9 Activity, unspecified; Y92.89 Other specified places as the place of occurrence of the external cause; Z86.14 Personal history of Methicillin resistant Staphylococcus aureus infection
CPT/HCPCS: 36415; 76770; 80048; 80053; 80307; 81001; 82570; 82607; 82728; 82746; 82962; 83540; 83550; 83605; 83935; 84300; 85025; 85045; 87040; 96365; 96375; 99285; J1644; J1815; J1885; J2543; J3370; J7030; S0119

== ENCOUNTER 2018-04-21 05:31 | Emergency (ER) | payer OTHER, MEDICAID ==
[2018-04-21 05:37] VITALS: BP 136/86
[2018-04-21] MEDS ORDERED: DIPH/PERTUSS(ACELL)/TETANUS VAC/PF 0.5 ML SYR (>=10YO) IM ONE (06:02)
[2018-04-21] MEDS ORDERED: LIDOCAINE 1% INJ-PF (10 MG/ML) 30 ML SDV INJ ONE (06:02)
--- NOTE | 2018-04-21 06:04 | ER Document Report ---
ED Wound - General Chief Complaint: Laceration Stated Complaint: LEFT INDEX LACERATION Time Seen by Provider: 04/21/18 05:50 Notes: Patient is a 32-year-old female that comes to the emergency department for chief complaint of laceration to her left index finger. She states that she was at work, she accidentally opened a can and cut her finger on the can lid. She denies any other complaints. She is a diabetic. She states she has had MRSA in the past. She is not up-to-date on her tetanus within 5 years. TRAVEL OUTSIDE OF THE [place] 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 Past Surgical History: Reports: Hx Section - x2, Hx Tubal Ligation - Immunizations Immunizations up to date: No Hx Diphtheria, Pertussis, Tetanus Vaccination: Yes Review of Systems - Review of Systems Constitutional: No symptoms reported EENT: No symptoms reported Cardiovascular: No symptoms reported Respiratory: No symptoms reported Gastrointestinal: No symptoms reported Genitourinary: No symptoms reported Female Genitourinary: No symptoms reported Musculoskeletal: See HPI Skin: See HPI Hematologic/Lymphatic: No symptoms reported Neurological/Psychological: No symptoms reported Physical Exam - Vital signs Vitals: Temp Pulse Resp BP Pulse Ox 98.9 F 92 15 136/86 H 100 04/21/18 05:35 04/21/18 05:35 04/21/18 05:35 04/21/18 05:35 04/21/18 05:35 - Notes Notes: GENERAL: Alert, interacts well. No acute distress. HEAD: Normocephalic, atraumatic. EYES: Pupils equal, round, and reactive to light. Extraocular movements intact. ENT: Oral mucosa moist, tongue midline. Oropharynx unremarkable. Airway patent. Nares patent, no nasal septal hematoma, TM's intact. LUNGS: Clear to auscultation bilaterally, no wheezes, rales, or rhonchi. No respiratory distress. HEART: Regular rate and rhythm. No murmur ABDOMEN: Soft, non-tender. Non-distended. Bowel sounds present in all 4 quadrants. GENITOURINARY: Deferred EXTREMITIES: Left index finger with a laceration over the finger pad at the palmar aspect, this is an irregular flap, normal range of motion at the DIP and the remaining finger, normal sensation and capillary refill, normal hand/arm exam otherwise. BACK: no cervical, thoracic, lumbar midline tenderness. No saddle anesthesia, normal distal neurovascular exam. NEUROLOGICAL: Alert and oriented x3. Normal speech. [cranial nerves II through XII grossly intact]. SKIN: Warm, dry, normal turgor. No rashes or lesions noted. Course - Re-evaluation Re-evalutation: Finger laceration repaired, this had to be cleaned out because there was some dirt appearing substance in the wound. After thorough cleaning this was closed , patient has a history of MRSA, placed on Bactrim prophylaxis. Discussed wound care, follow-up, return precautions. Patient states understanding and agreement. - Vital Signs Vital signs: Temp Pulse Resp BP Pulse Ox 98.9 F 92 15 136/86 H 100 04/21/18 05:35 04/21/18 05:35 04/21/18 05:35 04/21/18 05:35 04/21/18 05:35 Procedures - Laceration/Wound Repair Left index finger Wound length (cm): 1.5 Wound's Depth, Shape: Irregular, Flap Laceration pre-procedure: Sterile PPE donned, Sterile drapes applied, Shur- Clens applied Anesthetic type: 1% Lidocaine Volume Anesthetic (mLs): 2 Wound explored: Clean, No foreign body removed Wound Repaired With: Sutures Suture Size/Type: 5:0, Nylon Number of Sutures: 5 Layer Closure?: No Post-procedure wound care: Sterile dressing applied Post-procedure NV exam normal: Yes Complications: No Discharge - Discharge Clinical Impression: Laceration of left index finger Qualifiers: Encounter type: initial encounter Damage to nail status: without damage Foreign body presence: without foreign body Qualified Code(s): S61.211A - Laceration without foreign body of left index finger without damage to nail, initial encounter Condition: Stable Disposition: HOME, SELF-CARE Instructions: Tetanus Immunization Given ([facility]) Additional Instructions: The laceration has been repaired with sutures. Sutures need to be removed in about 7 days, this can be performed at a medical facility. Keep clean, clean with soap and water, dab dry, avoid soaking. Keep clean dressing over the area. Take Bactrim antibiotic as prescribed. Return immediately for any concerning symptoms including signs of infection such as pain, developing redness, swelling, discolored discharge, fever, or any other concerning symptoms. Prescriptions: Sulfamethoxazole/Trimethoprim [Bactrim Ds Tablet] 1 each PO BID 5 Days #10 tablet
== END 2018-04-21 06:55 | disposition home or self-care (01) ==
LOC: ER 05:31
DX: S61.211A Laceration without foreign body of left index finger without damage to nail, initial encounter (principal); W26.8XXA Contact with other sharp object(s), not elsewhere classified, initial encounter; Y99.0 Civilian activity done for income or pay; F17.200 Nicotine dependence, unspecified, uncomplicated; E10.9 Type 1 diabetes mellitus without complications; Z23 Encounter for immunization; Z86.14 Personal history of Methicillin resistant Staphylococcus aureus infection; Z98.51 Tubal ligation status
CPT/HCPCS: 99282; 90471; 90715; 12001; J3490

== ENCOUNTER 2018-05-30 06:33 | Emergency (ER) | payer MEDICAID, OTHER ==
--- NOTE | 2018-05-30 08:03 | ER Document Report ---
HPI - HPI Time Seen by Provider: 05/30/18 07:35 Pain Level: Denies Notes: Patient is an otherwise healthy 33-year-old female who presents with chief complaint of white bumps to her labia. She states that she just noticed this last night. She denies any pain or tenderness to the area. Denies any concern for STDs. Patient does report that she shaves in the area and is concerned it may be from that. - REPRODUCTIVE Reproductive: DENIES: : Past Medical History - General Information source: Patient - Social History Smoking Status: Never Smoker Family History: DM, Hypertension, Other - asthma Patient has suicidal ideation: No Patient has homicidal ideation: No Endocrine Medical History: Reports: Hx Diabetes Mellitus Type 1, Hx Diabetes Mellitus Type 2 Renal/ Medical History: Denies: Hx Peritoneal Dialysis Infectious Medical History: Reports: Hx MRSA - Clindamycin sensitive Past Surgical History: Reports: Hx Section - x2, Hx Tubal Ligation - Immunizations Immunizations up to date: No Hx Diphtheria, Pertussis, Tetanus Vaccination: Yes Vertical Provider Document - CONSTITUTIONAL Notes: PHYSICAL EXAMINATION: GENERAL: Well-appearing, well-nourished and in no acute distress. HEAD: Atraumatic, normocephalic. EYES: Pupils equal round and reactive to light, extraocular movements intact, conjunctiva are normal. ENT: Nares patent, oropharynx clear without exudates. Moist mucous membranes. NECK: Normal range of motion, supple without lymphadenopathy LUNGS: Breath sounds clear to auscultation bilaterally and equal. No wheezes rales or rhonchi. HEART: Regular rate and rhythm without murmurs ABDOMEN: Soft, nontender, nondistended abdomen. No guarding, no rebound. No masses appreciated. Female : 3 small white areas of induration to the right labia majora, no fluctuance noted. Musculoskeletal: Normal range of motion, no pitting or edema. No cyanosis. NEUROLOGICAL: Cranial nerves grossly intact. Normal speech, normal gait. Normal sensory, motor exams PSYCH: Normal mood, normal affect. SKIN: Warm, Dry, normal turgor, no rashes or lesions noted. - INFECTION CONTROL TRAVEL OUTSIDE OF THE [place] IN LAST 30 DAYS: No COUNTRY TRAVELED TO/FROM: [email or web address] Course - Re-evaluation Re-evalutation: Patient has a few small white bumps to the inside of her labia majora, they do not appear to be abscesses. They have no fluctuance. They are not tender with palpation. A culture was obtained for herpes although this is unlikely. Patient encouraged to do sits baths with Epsom salt and have follow-up with her primary care. - Vital Signs Vital signs: Temp Pulse Resp BP Pulse Ox 98.5 F 98 15 130/84 H 100 05/30/18 06:39 05/30/18 06:39 05/30/18 06:39 05/30/18 06:39 05/30/18 06:39 Discharge - Discharge Clinical Impression: Skin irritation Condition: Stable Disposition: HOME, SELF-CARE Additional Instructions: The bumps on your labia appear to be clogged pores which can be caused by shaving. I did take a culture to test for herpes although I feel this is unlikely. Please use warm water soaks to the area 3 times a day, you may add Epsom salt. Do not apply any creams or irritants to the area. Do not use feminine wash products until this is resolved. Referrals: CECY MARTINEZ, NEWS DIRECTOR [NURSE PRACTITIONER] - Follow up as needed
[2018-05-30 08:12] VITALS: BP 135/81
== END 2018-05-30 08:08 | disposition home or self-care (01) ==
LOC: ER 06:33
DX: L98.9 Disorder of the skin and subcutaneous tissue, unspecified (principal); R22.2 Localized swelling, mass and lump, trunk; E11.9 Type 2 diabetes mellitus without complications; Z86.14 Personal history of Methicillin resistant Staphylococcus aureus infection
CPT/HCPCS: 87250; 99283

== ENCOUNTER 2019-05-14 20:43 | Emergency (ER) | payer SELFPAY ==
[2019-05-14] MEDS ORDERED: ACETAMINOPHEN 325 MG TABLET PO ONE (21:52)
[2019-05-14] MEDS ORDERED: DIPH/PERTUSS(ACELL)/TETANUS VAC/PF 0.5 ML SYR (>=10YO) IM ONE (21:58)
[2019-05-14] MEDS ORDERED: HYDROCODONE/ACETAMINOPHEN 5-325 MG TABLET PO ONE (21:58)
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
[2019-05-15] MEDS ORDERED: HYDROCODONE/ACETAMINOPHEN 5-325 MG (6 TAB/ER DISP) PO PRN (01:14)
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
[2019-05-15 01:53] VITALS: BP 143/85
== END 2019-05-15 01:54 | disposition home or self-care (01) ==
LOC: ER 20:43 → EEVIPCON 20:43 → ER 05-15 01:54
DX: S00.83XA Contusion of other part of head, initial encounter (principal); S00.10XA Contusion of unspecified eyelid and periocular area, initial encounter; S10.91XA Abrasion of unspecified part of neck, initial encounter; S00.212A Abrasion of left eyelid and periocular area, initial encounter; S00.81XA Abrasion of other part of head, initial encounter; R51 Headache; Y04.2XXA Assault by strike against or bumped into by another person, initial encounter; Y93.89 Activity, other specified; Z87.892 Personal history of anaphylaxis; Z88.6 Allergy status to analgesic agent; Z88.5 Allergy status to narcotic agent; E11.9 Type 2 diabetes mellitus without complications; Z79.4 Long term (current) use of insulin
CPT/HCPCS: 70450; 70486; 90471; 90715; 99284